=== PATIENT | female | born 1980 | race Caucasian/White ===

== ENCOUNTER → 2019-02-13 09:04 | Outpatient (CLI) | payer OTHER, SELFPAY ==
[2019-02-13 12:13] LABS: Absolute Lymphocyte Count 2.21 X10^3/ul (0.83-4.51); Absolute Neutrophil Count 3.1 X10^3/uL (2.0-7.7); Basophil# 0.04 X10^3/uL; Basophil% 0.6 % (0-1); Eosinophil# 0.29 X10^3/uL; Eosinophils% 4.7 % (0-5); Hematocrit 40.4 % (37-47); Hemoglobin 12.8 g/dl (12.0-15.0); Lymphocyte # 2.21 X10^3/ul (4.0); Lymphocyte % 35.7 % (19-41); Mean Corp Hgb Conc 31.7 g/gl (32-36); Mean Corpuscular Hgb 28.6 pg (27.0-32.0); Mean Corpuscular Volume 90.2 fL (81-99); Monocyte# 0.54 X10^3/uL; Monocyte% 8.7 % (0-10); Neutrophil % 50.1 % (47-70); Platelet Count 379 K/mm3 (150-450); RBC Distribution Width CV 13.3 % (11.6-14.6); RBC Distribution Width SD 43.6 fl (35.1-43.9); Red Blood Count 4.48 M/mm3 (4.2-5.4); White Blood Count 6.2 K/mm3 (4.4-11.0)
[2019-02-13 12:15] LABS: POSITIVE COUNT NO; POSITIVE DIFFERENTIAL NO; POSITIVE MORPHOLOGY NO
[2019-02-13 12:59] LABS: ALB/GLOB Ratio 0.9 RATIO (0.9-2.4); AST(SGOT) 18 U/L (15-37); Alanine Aminotransfer ALT/SGPT 24 U/L (13-56); Albumin, Serum 3.9 g/dL (3.2-5.0); Alkaline Phosphatase 70 U/L (45-117); Anion Gap 7 (5-15); BUN 16 mg/dL (7-18); BUN/Creat Ratio 22.8 RATIO (10-20); Calcium,Total 8.7 mg/dL (8.5-10.1); Chloride 106 mmol/L (98-107); Cholesterol 174 mg/dL (200); EST Glomerular Filtration Rate 99 mL/min (>60); Est Glom Filt Rate - Afr Amer 120 mL/min (>60); Globulin 4.2 g/dL (2.2-4.2); Glucose 78 mg/dL (74-106); High Density Lipoprotein 63 mg/dL; Potassium 4.2 mmol/L (3.5-5.1); Protein, Total 8.1 g/dL (6.4-8.2); Sodium Level 139 mmol/L (136-145); Thyroid Stim Hormone (TSH) 2.18 uIU/mL (0.358-3.74); Triglycerides 58 mg/dL; Very Low Density Lipoprotein 12 mg/dL (5-40)
== END ==
PROVIDERS: Family Provider Family Medicine; PCP Family Medicine; Visit Provider Family Medicine
DX: E66.9 Obesity, unspecified (principal); E78.5 Hyperlipidemia, unspecified
CPT/HCPCS: 36415; 80053; 80061; 84443; 85025

== ENCOUNTER → 2019-11-06 08:53 | Outpatient (CLI) | payer OTHER, SELFPAY ==
[2019-11-06 08:11] VITALS: BMI 36.4
[2019-11-06 10:08] LABS: T4 Free Direct 0.91 ng/dL (0.76-1.46); Thyroid Stim Hormone (TSH) 2.84 uIU/mL (0.358-3.74)
[2019-11-07 15:10] LABS: Thyroid Peroxidase AB 8 IU/mL (0-34)
== END ==
PROVIDERS: PCP Family Medicine; Referring Provider Internal Medicine Endocrinology, Diabetes & Metabolism; Visit Provider Internal Medicine Endocrinology, Diabetes & Metabolism
DX: E04.9 Nontoxic goiter, unspecified (principal)
CPT/HCPCS: 36415; 84439; 84443; 86376

== ENCOUNTER → 2020-04-29 10:28 | Outpatient (CLI) | payer OTHER, SELFPAY ==
[2019-11-06 08:11] VITALS: BMI 36.4
== END ==
PROVIDERS: PCP Family Medicine; Referring Provider Family Medicine; Visit Provider Family Medicine
DX: Z20.828 Contact with and (suspected) exposure to other viral communicable diseases (principal)
CPT/HCPCS: 87635; 94799; U0003

== ENCOUNTER → 2020-09-06 09:10 | Outpatient (CLI) | payer OTHER, SELFPAY ==
[2019-11-06 08:11] VITALS: BMI 36.4
[2020-09-06 12:23] LABS: Absolute Lymphocyte Count 2.09 X10^3/uL (0.83-4.51); Absolute Neutrophil Count 5.9 X10^3/uL (2.0-7.7); Basophil# 0.07 X10^3/uL; Basophil% 0.8 % (0-1); Eosinophil# 0.18 X10^3/uL; Hematocrit 42.9 % (37-47); Hemoglobin 13.2 g/dL (12.0-15.0); Lymphocyte # 2.09 X10^3/ul (4.0); Lymphocyte % 23.2 % (19-41); Mean Corp Hgb Conc 30.8 g/dL (32-36); Mean Corpuscular Hgb 28.4 pg (27.0-32.0); Mean Corpuscular Volume 92.5 fL (81-99); Mean Platelet Vol. 10.9 fl (6.2-12.0); Monocyte# 0.73 X10^3/uL; Monocyte% 8.1 % (0-10); NRBC Flagged by Analyzer 0 % (0-5); Neutrophil # 5.89 X10^3/uL (2.7-7.7); Neutrophil % 65.6 % (47-70); Platelet Count 384 K/mm3 (150-450); RBC Distribution Width CV 13.3 % (11.6-14.6); RBC Distribution Width SD 45.1 fl (35.1-43.9); Red Blood Count 4.64 M/mm3 (4.2-5.4)
[2020-09-06 12:54] LABS: AST(SGOT) 15 U/L (15-37); Alanine Aminotransfer ALT/SGPT 30 U/L (13-56); Alkaline Phosphatase 61 U/L (45-117); Anion Gap 4 (5-15); BUN 18 mg/dL (7-18); Chloride 105 mmol/L (98-107); Cholesterol 216 mg/dL (200); Creatinine, Serum 0.75 mg/dL (0.55-1.02); EST Glomerular Filtration Rate 91 mL/min (>60); Est Glom Filt Rate - Afr Amer 110 mL/min (>60); Globulin 4.2 g/dL (2.2-4.2); Glucose 85 mg/dL (74-106); High Density Lipoprotein 60 mg/dL; Potassium 4.1 mmol/L (3.5-5.1); Protein, Total 8.2 g/dL (6.4-8.2); Sodium Level 137 mmol/L (136-145); Thyroid Stim Hormone (TSH) 2.57 uIU/mL (0.358-3.74); Triglycerides 85 mg/dL; Very Low Density Lipoprotein 17 mg/dL (5-40)
== END ==
PROVIDERS: PCP Family Medicine; Visit Provider Family Medicine
DX: Z00.00 Encounter for general adult medical examination without abnormal findings (principal); L40.50 Arthropathic psoriasis, unspecified; R53.83 Other fatigue
CPT/HCPCS: 36415; 80053; 80061; 84443; 85025

== ENCOUNTER → 2023-04-16 | Outpatient (CLI) | payer OTHER, SELFPAY ==
[2023-04-16 07:42] LABS: Absolute Lymphocyte Count 2.89 X10^3/uL (0.83-4.51); Absolute Neutrophil Count 3.6 X10^3/uL (2.0-7.7); Basophil# 0.06 X10^3/uL; Basophil% 0.8 % (0-1); Eosinophil# 0.18 X10^3/uL; Eosinophils% 2.4 % (0-5); Hematocrit 41.6 % (37-47); Hemoglobin 12.8 g/dL (12.0-15.0); Lymphocyte # 2.89 X10^3/ul (0.83-4.51); Lymphocyte % 39.3 % (19-41); Mean Corp Hgb Conc 30.8 g/dL (32-36); Mean Corpuscular Hgb 28.1 pg (27.0-32.0); Mean Corpuscular Volume 91.2 fL (81-99); Mean Platelet Vol. 10.1 fl (6.2-12.0); Monocyte# 0.65 X10^3/uL; Monocyte% 8.8 % (0-10); NRBC Flagged by Analyzer 0 % (0-5); Neutrophil # 3.56 X10^3/uL (2.7-7.7); Neutrophil % 48.4 % (47-70); Platelet Count 363 K/mm3 (150-450); RBC Distribution Width CV 13.4 % (11.6-14.6); Red Blood Count 4.56 M/mm3 (4.2-5.4); White Blood Count 7.4 K/mm3 (4.4-11.0)
[2023-04-16 08:09] LABS: Vitamin D,25 Hydroxy 47.7 ng/mL
[2023-04-16 08:13] LABS: ALB/GLOB Ratio 0.9 RATIO (0.9-2.4); AST(SGOT) 14 U/L (15-37); Alanine Aminotransfer ALT/SGPT 19 U/L (13-56); Albumin, Serum 3.7 g/dL (3.2-5.0); Alkaline Phosphatase 64 U/L (45-117); Anion Gap 3 (5-15); BUN 13 mg/dL (7-18); BUN/Creat Ratio 17.4 RATIO (10-20); Calcium,Total 8.6 mg/dL (8.5-10.1); Chloride 107 mmol/L (98-107); Cholesterol 213 mg/dL (200); Creatinine, Serum 0.75 mg/dL (0.55-1.02); EST Glomerular Filtration Rate 90 mL/min (>60); Est Glom Filt Rate - Afr Amer 109 mL/min (>60); Globulin 4.1 g/dL (2.2-4.2); Glucose 89 mg/dL (74-106); High Density Lipoprotein 67 mg/dL; Protein, Total 7.8 g/dL (6.4-8.2); Sodium Level 136 mmol/L (136-145); T4 Free Direct 0.89 ng/dL (0.76-1.46); Thyroid Stim Hormone (TSH) 3.57 uIU/mL (0.358-3.74); Triglycerides 136 mg/dL; Very Low Density Lipoprotein 27 mg/dL (5-40)
== END | disposition home or self-care (01) ==
PROVIDERS: PCP Nurse Practitioner Family; Referring Provider Nurse Practitioner Family; Visit Provider Nurse Practitioner Family
DX: Z00.01 Encounter for general adult medical examination with abnormal findings (principal); R53.83 Other fatigue; E55.9 Vitamin D deficiency, unspecified
CPT/HCPCS: 36415; 80053; 80061; 82306; 84439; 84443; 85025

== ENCOUNTER → 2023-05-18 | Outpatient (CLI) | payer OTHER, SELFPAY ==
--- NOTE | 2023-05-18 15:42 | RAD_ITS ---
INDICATION: BILAT FOOT PAIN EXAMINATION/TECHNIQUE: X-RAY - RIGHT XR Foot Min 3 Views 3 VIEWS COMPARISON: No relevant prior comparison study available FINDINGS: SOFT TISSUES: No soft tissue swelling or gas. No radiopaque foreign body. BONES/JOINTS: No acute fracture or subluxation.. Normal alignment. Preservation of the joint space.. No sclerotic or destructive changes observed. RAD/Foot min 3 Views IMPRESSION: 1. No evidence fracture malalignment or focal bony or joint space abnormality involving the RIGHT foot. Electronically Signed: Joshua Velazquez MD at 18:10 EDT ,
--- NOTE | 2023-05-18 15:42 | RAD_ITS ---
INDICATION: BILAT FOOT PAIN EXAMINATION/TECHNIQUE: X-RAY - LEFT XR Foot Min 3 Views 3 VIEWS COMPARISON: No relevant prior comparison study available FINDINGS: SOFT TISSUES: No soft tissue swelling or gas. No radiopaque foreign body. BONES/JOINTS: No acute fracture or subluxation.. Normal alignment. Preservation of the joint space.. No sclerotic or destructive changes observed. RAD/Foot min 3 Views IMPRESSION: 1. No fracture malalignment dislocation or focal bony or joint space abnormality involving the LEFT foot Electronically Signed: Joshua Velazquez MD at 18:11 EDT ,
== END | disposition home or self-care (01) ==
LOC: RAD 15:38
PROVIDERS: PCP Nurse Practitioner Family; Referring Provider Nurse Practitioner Family; Visit Provider Nurse Practitioner Family
DX: M79.671 Pain in right foot (principal); L40.50 Arthropathic psoriasis, unspecified; M79.672 Pain in left foot
CPT/HCPCS: 73630

== ENCOUNTER → 2023-07-24 | Outpatient (CLI) | payer OTHER, SELFPAY ==
[2023-07-24 12:38] LABS: Erythrocyte Sedimentation Rate 17 mm/hr (0-30)
[2023-07-24 12:42] LABS: Absolute Lymphocyte Count 2.24 X10^3/uL (0.83-4.51); Absolute Neutrophil Count 5.2 X10^3/uL (2.0-7.7); Basophil# 0.08 X10^3/uL; Eosinophil# 0.15 X10^3/uL; Eosinophils% 1.8 % (0-5); Hematocrit 41.1 % (37-47); Hemoglobin 13.1 g/dL (12.0-15.0); Lymphocyte # 2.24 X10^3/ul (0.83-4.51); Lymphocyte % 27.1 % (19-41); Mean Corp Hgb Conc 31.9 g/dL (32-36); Mean Corpuscular Hgb 29.1 pg (27.0-32.0); Mean Corpuscular Volume 91.3 fL (81-99); Mean Platelet Vol. 10.8 fl (6.2-12.0); Monocyte% 7.3 % (0-10); NRBC Flagged by Analyzer 0 % (0-5); Neutrophil # 5.16 X10^3/uL (2.7-7.7); Neutrophil % 62.4 % (47-70); Platelet Count 434 K/mm3 (150-450); RBC Distribution Width CV 13.4 % (11.6-14.6); RBC Distribution Width SD 45.1 fl (35.1-43.9); White Blood Count 8.3 K/mm3 (4.4-11.0)
[2023-07-24 13:22] LABS: ALB/GLOB Ratio 0.9 RATIO (0.9-2.4); AST(SGOT) 15 U/L (15-37); Alanine Aminotransfer ALT/SGPT 24 U/L (13-56); Albumin, Serum 3.9 g/dL (3.2-5.0); Alkaline Phosphatase 62 U/L (45-117); Anion Gap 5 (5-15); BUN 18 mg/dL (7-18); BUN/Creat Ratio 27.6 RATIO (10-20); Calcium,Total 8.7 mg/dL (8.5-10.1); Chloride 104 mmol/L (98-107); Creatinine, Serum 0.65 mg/dL (0.55-1.02); EST Glomerular Filtration Rate 105 mL/min (>60); Est Glom Filt Rate - Afr Amer 128 mL/min (>60); Globulin 4.2 g/dL (2.2-4.2); Glucose 83 mg/dL (74-106); Potassium 4.1 mmol/L (3.5-5.1); Protein, Total 8.1 g/dL (6.4-8.2); Rheumatoid Factor < 10.0 IU/mL (<15); Sodium Level 136 mmol/L (136-145)
[2023-07-24 13:32] LABS: Hepatitis B Surface Antibody Non-Reactive; Hepatitis B Surface Antigen Non-Reactive (Nonreactive); Hepatitis C Antibody Non-Reactive (Nonreactive)
[2023-07-25 12:09] LABS: ANTINUCLEAR ANTIBODIES DIRECT Negative (Negative)
[2023-07-25 13:07] LABS: CCP IgG Antibodies 3 units (0-19)
== END | disposition home or self-care (01) ==
LOC: MTLAB 09:29
PROVIDERS: PCP Nurse Practitioner Family; Referring Provider Internal Medicine Rheumatology; Visit Provider Internal Medicine Rheumatology
DX: L40.59 Other psoriatic arthropathy (principal); L40.8 Other psoriasis
CPT/HCPCS: 36415; 80053; 85025; 85652; 86038; 86140; 86200; 86431; 86706; 86803; 87340

== ENCOUNTER → 2023-09-28 | Outpatient (CLI) | payer OTHER, SELFPAY ==
--- OUTSIDE RECORDS SUMMARY | 2023-09-28 07:37 | XMS RPT_ITS | CCD ---
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 Role Phone Ariana Ceballos Unavailable Papo Vanegas Unavailable Carmen Velazquez Unavailable Unavailable Clarita Valerio Unavailable Unavailable Unavailable Unavailable Ariana Ceballos DO Primary Care Provider Ariana Ceballos DO Primary Care Provider ARIANA CEBALLOS Primary Care Unavailab le LATOYA LOPEZ Attending Unavailab EUSEBIA Dejesus Referring Unavailable ARIANA CEBALLOS Primary Care Unavailab EUSEBIA Dejesus Referring Unavailable EUSEBIA VICTORIA Attending Unavailable ARIANA CEBALLOS Primary Care Unavailab le TUCKERARIANA Primary Care Unavailab EUSEBIA Dejesus Referring Unavailable ARIANA CEBALLOS Primary Care Unavailab le FOSTRE LATOYA MACDONALD Referring Unavailab le TUCKERARIANA Primary Care Unavailab le FOSTER LATOYA MACDONALD Referring Unavailab le Tucker Ariana LAYTON Primary Care Provider Medications Completed/Discontinued Medications Medication Drug Class(es) Dates Sig (Normalized) Sig (Original) amoxicillin 875 mg / clavulanate 125 mg oral tablet (1 source) Penicillin-class Antibacterial Start: 11-27-2014 End: 02-01-2015 take 1 tablet by mouth twice daily AUGMENTIN, 875-125MG (Oral Tablet) 1 Tablet bid for 0 days Quantity: 20 {Tablet} Refills: 0 Ordered: 01-Feb-2015 Clarita Valerio LPN Start : 27-Nov-2014 End : 01-Feb-2015 Discontinued apremilast 30 mg oral tablet (2 sources) Start: 08-22-2016 End: 09-21-2016 take 1 tablet by mouth once daily Otezla 30 MG Oral Tablet 1 (one) Tablet daily for 30 days Quantity: 30 {Tablet} Refills: 0 Ordered: 22-Aug-2016 Ariana Ceballos DO Tucker LAYTON Ariana Start : 22-Aug-2016 End : 21-Sep-2016 Inactive Problems Active Problems Problem Classification Problem Date Documented Date Episodic/Chronic Administrative/social admission (1 source) Medical examinations/reports status; Translations: [Well female exam with routine gynecological exam] 08-17-2015 Episodic Anxiety disorders (2 sources) Anxiety; Translations: [Anxiety] Resolved: 08-22-2016 08-22-2016 Chronic Coronary atherosclerosis and other heart disease (6 sources) Coronary atherosclerosis and other heart disease Fever of unknown origin (3 sources) Fever; Translations: [Fever] Resolved: 07-21-2015 07-21-2015 Episodic Immunizations and screening for infectious disease (3 sources) Need for prophylactic vaccination and inoculation against influenza; Translations: [Patient encounter status] Episodic Lymphadenitis (3 sources) Lymphadenopathy; Translations: [Lymphadenopathy] Resolved: 08-22-2016 08-22-2016 Episodic Malaise and fatigue (2 sources) Fatigue; Translations: [FATIGUE] Resolved: 08-22-2016 08-22-2016 Episodic Nutritional deficiencies (2 sources) Vitamin D deficiency; Translations: [Vitamin D deficiency, unspecified] Onset: 05-17-2022 Chronic Other bone disease and musculoskeletal deformities (1 source) Somatic dysfunction of upper limb; Translations: [Arm somatic dysfunction] 05-04-2017 Episodic Other connective tissue disease (1 source) Pain in left hand; Translations: [Left hand pain] 05-04-2017 Episodic Other connective tissue disease (1 source) Tendinitis of elbow or forearm; Translations: [Tendonitis of elbow, left] 05-04-2017 Episodic Other female genital disorders (1 source) Vaginal dryness; Translations: [Other specified noninflammatory disorders of vagina] Episodic Other inflammatory condition of skin (3 sources) Psoriasis; Translations: [Psoriasis] 05-04-2017 Chronic Other inflammatory condition of skin (3 sources) Seborrhea capitis; Translations: [Seborrheic dermatitis of scalp] Resolved: 08-22-2016 08-22-2016 Episodic Other inflammatory condition of skin (3 sources) Seborrheic dermatitis; Translations: [Seborrheic dermatitis] Resolved: 08-22-2016 08-22-2016 Episodic Other lower respiratory disease (2 sources) Cough; Translations: [Cough] Resolved: 08-22-2016 08-22-2016 Episodic Other nutritional; endocrine; and metabolic disorders (6 sources) Body mass index 30+ - obesity; Translations: [Body mass index (BMI) 39.0-39.9, adult] Onset: 05-16-2022 05-04-2017 Chronic Other nutritional; endocrine; and metabolic disorders (1 source) Weight gain; Translations: [Weight Gain] 05-04-2017 Episodic Other nutritional; endocrine; and metabolic disorders (2 sources) Unintentional weight gain; Translations: [Abnormal weight gain] Episodic Other and delivery including normal (1 source) History of past delivery; Translations: [Vaginal Delivery] 05-04-2017 Episodic Past or Other Problems Problem Classification Problem Date Documented Da te Episodic/Chronic Other and unspecified benign neoplasm (4 sources) Fibroadenoma of breast; Translations: [Benign neoplasm of unspecified breast] Onset: 09-09-2015 09-09-2015 Episodic Other ear and sense organ disorders (1 source) Otalgia; Translations: [Ear ache] Resolved: 07-21-2015 07-21-2015 Episodic Other nutritional; endocrine; and metabolic disorders (1 source) Abnormal weight gain; Translations: [Unintended weight gain] Onset: 05-16-2022 Episodic Other skin disorders (1 source) Skin tag; Translations: [Skin tag] Resolved: 07-21-2015 08-18-2015 Episodic Other skin disorders (1 source) Hirsutism; Translations: [Hirsutism] Onset: 05-17-2022 Episodic Unclassified (1 source) BMI 33.0-33.9,adult Unclassified (1 source) Abortions/Miscarria ges; Translations: [Abortions/Miscarri ages] 05-04-2017 Results Test Name Value Interpretation Reference Range Facil ity Vital Signs Date Time Vital Sign Value Performing Clinician Facility 05-16-2022 12:58-0400 Body height 161.3 cm Latoya Macdonald MD Work Phone: [facility] 05-16-2022 12:58-0400 Body weight 102.06 kg Latoya Macdonald MD Work Phone: [facility] 05-16-2022 12:58-0400 Diastolic blood pressure 92 mm[Hg] Latoya Macdonald MD Work Phone: [facility] 05-16-2022 12:58-0400 Heart rate 80 /min Latoya Macdonald MD Work Phone: [facility] 05-16-2022 12:58-0400 Respiratory rate 16 /min Latoya Macdonald MD Work Phone: [facility] 05-16-2022 12:58-0400 SaO2% (BldA) [Mass fraction] 99 % Latoya Macdonald MD Work Phone: [facility] 05-16-2022 12:58-0400 Systolic blood pressure 136 mm[Hg] Latoya Macdonald MD Work Phone: [facility] 04-04-2022 08:28-0400 Body height 162.6 cm Eusebia Plotts FITNESS CONSULTANT.CNM Work Phone: [facility] 04-04-2022 08:28-0400 Body weight 102.97 kg Eusebia Plotts FITNESS CONSULTANT.CNM Work Phone: [facility] 04-04-2022 08:28-0400 Diastolic blood pressure 80 mm[Hg] Eusebia Plotts FITNESS CONSULTANT.CNM Work Phone: [facility] 04-04-2022 08:28-0400 Systolic blood pressure 122 mm[Hg] Eusebia Plotts FITNESS CONSULTANT.CNM Work Phone: [facility] 05-04-2017 08:02-0400 BMI (Body Mass Index) 33.19 kg/m2 Ariana Ceballos [facility] Work Phone: 05-04-2017 08:02-0400 BP Diastolic 80 mm[Hg] Airana Ceballos [facility] Work Phone: Encounters Encounter Date Encounter Type Care Provider Facility Start: 09-15-2022 End: 09-15-2022 ambulatory ARIANA CEBALLOS Facility:[facility] Start: 09-15-2022 End: 09-15-2022 Subsequent hospital visit by physician Screen Mammo [facility] Mammogram Procedures Date Procedure Procedure Detail Performing Clinician Start: 09-15-2022 ROBINA SCREENING W LALITHA Eusebia Victoria FITNESS CONSULTANT.CNM Work Phone: Start: 07-29-2021 Mammography Eusebia Marestiburcio FITNESS CONSULTANT.CNM Work Phone: Start: 09-01-2015 End: 09-01-2015 Breast Limited Unilateral Comments: See Note; NOTES: [facility] Imaging Services [address] [place] [address] Verdana 4d Breast Limited Unilateral MR#: [id number] Acct: [id number] Name: KAREN BRENNAN Rep #: [id number] : 1980 F 35 From: Benjamin Vega MD PCP: Ariana Ceballos DO Status: REG CLI Study: Breast Limited Unilateral Date of Exam: 09/01/15 Exam# [id number] Ordering Dr: Ariana Ceballos DO STUDY: ULTRASOUND BREAST - RIGHT REASON FOR EXAM: Female, 35 years old. Abnormal screening mammogram. TECHNIQUE: Axial and longitudinal images of the RIGHT breast were performed with a high resolution ultrasound transducer. COMPARISON: Comparison is made with prior mammogram dated August 25, 2015. FINDINGS: RIGHT Breast: There is a 1.9 cm x 1.8 cm x 1.0 cm well-defined hypoechoic solid nodule at the 1:00 position the breast at 4 cm from the nipple. This corresponds to the mammographic findings. The patient presents a history of prior biopsy of this abnormality. Clinical correlation is recommended. IMPRESSION: 1.9 cm x 1.8 cm x 1.0 cm well-defined hypoechoic solid nodule at the 1:00 position of the breast is 4 cm from the nipple. This corresponds to the mammographic findings. The patient reports prior biopsy of this nodule. Clinical correlation is recommended. ASSESSMENT CATEGORY: BIRADS Category 2: Benign. A letter regarding these results will be sent to the patient by the facility within 30 days. Electronically Signed: Benjamin Vega MD at 9:49 EST Tel [phone], Service support [phone], CC: Ariana Ceballos DO Flower Grader: Signed Ariana Ceballos Work Phone: Start: 08-25-2015 End: 08-25-2015 Bilat Scrn Digital AND CAD Comments: See Note; NOTES: [facility] Imaging Services [address] [place] [address] Verdana 4d Bilat Scrn Digital AND CAD MR#: [id number] Acct: [id number] Name: KAREN BRENNAN Rep #: [id number] : 1980 F 34 From: Benjamin Vega MD PCP: Ariana Ceballos DO Status: REG CLI Study: Bilat Scrn Digital AND CAD Date of Exam: 08/25/15 Exam# [id number] Ordering Dr: Ariana Ceballos DO MAMMOGRAPHY - BILATERAL SCREENING REASON FOR EXAM: Female, 34 years old. Routine annual screening examination. PERTINENT HISTORY: Grandmother with breast cancer. Prior right breast aspiration. TECHNIQUE: Digital examination. Mediolateral oblique (MLO) and craniocaudad (CC) views of both breasts were obtained. CAD: CAD was performed on this study. COMPARISON: None. Baseline examination. FINDINGS: Breast Composition: There are scattered areas of fibroglandular density. There is a 2.1 cm x 2.2 cm well-defined nodule in the upper medial aspect of the right breast. Correlation with ultrasound is recommended. No other significant abnormalities are identified. IMPRESSION: 2.1 cm x 2.2 cm well-defined nodule in the upper medial aspect of the right breast as described. Correlation with ultrasound is recommended. Recall Side: Right Breast ASSESSMENT CATEGORY: BIRADS Category 0: Incomplete. Need additional imaging evaluation. A letter regarding these results will be sent to the patient by the facility within 30 days. Approximately 10% of breast cancers are not detected by mammography. A normal mammogram should not delay biopsy of a clinically suspicious abnormality. [id number] Electronically Signed: Benjamin Vega MD at 9:13 EST Tel [phone], Service support [phone], CC: Ariana Ceballos DO Flower Grader: Signed Ariana Ceballos Work Phone: Start: 03-20-2013 End: 03-20-2013 No Known Past Surgical History [facility] Plan of Treatment Date Care Activity Detail Author Start: 04-04-2027 HPV TESTING HPV TESTING [facility] Start: 04-04-2027 PAP TESTING PAP TESTING [facility] Start: 09-15-2023 Mammography Mammogram Screening [facility] Start: 06-01-2023 Covid-19 Vaccine ( season) Covid-19 Vaccine ( season) [facility] Start: 06-01-2023 Influenza [facility] Start: 10-01-2022 Depression Assessment Depression Assessment [facility] Start: 07-29-2022 Mammography MAMMOGRAM [facility] Start: 06-01-2022 Influenza vaccination INFLUENZA (#1) [facility] Start: 05-16-2022 End: 05-16-2023 17-Hydroxyprogesterone [Mass/volume] in Serum or Plasma HYDROXYPROGESTERO-17 Lab Routine Unintended weight gain Elevated testosterone level in female Hirsutism Expected: 05/16/2022, Expires: 05/16/2023 [facility] Work Phone: Immunizations Immunization Date Immunization Notes Care Provider Jer [email or web address] 08-06-2020 influenza, injectabl e, quadrivalent, contains preservative Eusebia Victoria FITNESS CONSULTANT.CNM Work Phone: [facility] 08-06-2020 influenza virus vacc ine, unspecified formulation Screen Wstr [facility] Payers Date Payer Category Payer Private Health Insurance [facility] CHOICE PLUS [id number] 2019-Present [phone] [address] [place] [id number] [id number] 2019 Private Health Insurance [facility] CHOICE PLUS [id number] 2019-Present [phone] [address] [place] [id number] HMO [id number] 2019 Unknown [id number] Unknown [facility] Social History Date Type Detail Facility Alcohol Use: Never smoker [facility] Work Phone: Start: 04-04-2022 End: 05-16-2022 Caffeine Use [facility] Work Phone: Clinical Notes 04-04-2022 to 09-15-2022 Tracie Estrada, RT(R) - 09/15/2022 7:50 AM ESTTelephone Encounter - Keena Newberry RN - 06/06/2022 10:55 AM EDTTelephone Encounter - Brenda Lyons LPN - 06/02/2022 9:50 AM EDTPatient Instructions Note Date & Type Note Facility 09-15-2022 Note HNO ID: [id number] Author: RT Lay(R) Service: ? Author Type: Technologist Type: Progress Notes Filed: 09/15/2022 7:37 AM Note Text: Radiology Service Progress Note PATIENT NAME: Karen Brennan DATE OF SERVICE: September 15, 2022 TIME: 7:36 AM PATIENT IDENTITY VERIFICATION COMPLETED USING TWO (2) IDENTIFIERS: Name and Date of confirmed by patient verbally. FALL SCREENING: Has the patient had 2 falls in the last year or 1 fall with injury or currently using an Ambulatory Assistive Device (Walker, Cane, Wheelchair, Crutches, etc.)? No PATIENT GENDER DATA: Female. status: : No status: NO. PATIENT RELEVANT IMPLANT DATA REVIEWED: Not Applicable RADIOLOGY DEPARTMENT: Mammography PERIPHERAL IV DATA: Not applicable SIGNED BY: RT Lay(R) September 15, 2022 7:36 AM [facility] 09-15-2022 History of Presen t illness Narrative Radiology Service Progress Note PATIENT NAME: Kaern Brennan DATE OF SERVICE: September 15, 2022 TIME: 7:36 AM PATIENT IDENTITY VERIFICATION COMPLETED USING TWO (2) IDENTIFIERS: Name and Date of confirmed by patient verbally. FALL SCREENING: Has the patient had 2 falls in the last year or 1 fall with injury or currently using an Ambulatory Assistive Device (Walker, Cane, Wheelchair, Crutches, etc.)? No PATIENT GENDER DATA: Female. status: : No status: NO. PATIENT RELEVANT IMPLANT DATA REVIEWED: Not Applicable RADIOLOGY DEPARTMENT: Mammography PERIPHERAL IV DATA: Not applicable SIGNED BY: RT Lay(R) September 15, 2022 7:36 AM documented in this encounter [facility] 06-06-2022 Miscellaneous Notes [facility] message was reviewed on 06/02/2022. Closed. Call placed and my chart message sent with information below Sarahr Indu, The testosterone level was normal. The cortisol in the saliva test was also normal. The remaining of the labs were normal with the exception of elevated cholesterol (for which I recommend a diet low in saturated fat) and mild decrease in vitamin D (recommend over the counter vitamin D 1,000 units every day) Best, Dr. Foster documented in this encounter [facility] 05-16-2022 Note HNO ID: [id number] Author: Latoya Macdonald MD Service: ? Author Type: Physician Type: Progress Notes Filed: 05/16/2022 1:47 PM Note Text: ENDOCRINOLOGY INITIAL CONSULT REASON FOR CONSULT: Evaluation of hyperandrogenism REQUESTING PHYSICIAN: Ariana Ceballos DO History of Present Illness Karen Brennan is a 41 year old female presenting as a new patient to me for evaluation of ovarian hyperandrogenism. Reports feeling bad over the last two years. Has been progressively gaining weight despite her efforts with diet and physical activity and also with extreme fatigue. She took a blood and saliva test from home showing: normal thyroid levels, normal low DHEA-S and elevated testosterone in the saliva 525 pg/mL (10-61) and saliva cortisol at different times of the day with MN levels 0.6 ng/mL (0.6-4.1). Reports acne in her chin and has hair in upper lip and chin mostly over the last 2 years. She shaves her hair in arms. Regular menstrual periods are regular every 25-30 days. History of 2 live pregnancies (ages 11 and 14 years old) and 1 miscarriage. Blood pressure is trending up. Weight chart as follows: takes testosterone via gel and she wonders if it is being transmitted to her. Past History, Medications, Allergies PAST MEDICAL HISTORY: PAST MEDICAL HISTORY Diagnosis Date Psoriasis of scalp PAST SURGICAL HISTORY: PAST SURGICAL HISTORY Procedure Laterality Date DENTAL IMPLANT 08/2019 EXTRACTION, ERUPTED TOOTH OR EXPOSED ROOT (ELEVATION AND/OR FORCEPS REMOVAL) PAST SURGICAL HISTORY OF Right 2004 breast biopsy FAMILY HISTORY: FAMILY HISTORY Problem Relation Age of Onset Heart Maternal Grandfather Prostate Cancer Father Breast Cancer Maternal Grandmother Breast Cancer Paternal Grandmother other (lupus) Mother SOCIAL HISTORY: Social History Tobacco Use Smoking status: Never Smokeless tobacco: Never Vaping Use Vaping Use: Never used Substance Use Topics Alcohol use: Yes Comment: occasional Drug use: No MEDICATIONS: Current Outpatient Medications on File Prior to Visit Medication Sig Clobetasol Propionate (TEMOVATE) 0.05 % external solution PRN No current facility-administered medications on file prior to visit. ALLERGIES: ALLERGIES No Known Allergies Review of Systems CONSTITUTIONAL: weight gain EYES: Negative for blurry vision, retinopathy, or hemianopia. ENMT: Negative for thrush or odynophagia. CARDIOVASCULAR: Negative for CP, ORANTES, PND, orthopnea, HTM, dizziness or palpitations. RESPIRATORY: Negative for cough, SOB, breathlessness or hemoptysis. GASTROINTESTINAL: Negative for N/V/D, gastroparesis, polydipsia, abdominal pain, liver failure or constipation. GENITOURINARY: Negative for dys/urg/freq, polyuria, nephropathy, impotence, delayed or premature puberty, primary or secondary infertility or oligo/amenorrhea. MUSCULOSKELETAL: Negative for pain, injury, focal weakness, ambulation, fractures, deformity or myopathy. INTEGUMENTARY: acne and hirsutism NEUROLOGICAL: Negative for paresthesias, headache, h/o stroke/TIA, lethargy or exhaustion. PSYCHIATRIC: Negative for depression or anxiety. ENDOCRINE: Negative for diabetes, thyroid or Cleveland's. HEMATOLOGIC/LYMPHATIC: Negative for bruising or bleeding. ALLERGIC/IMMUNOLOGIC: Negative for splenectomy. Physical examination BP 136/92 Pulse 80 Resp 16 Ht 161.3 cm (5' 3.5 ) Wt 102.1 kg (225 lb) LMP 03/21/2022 SpO2 99% BMI 39.23 kg/m? APPEARANCE:Well appearing, alert, in no acute distress, well-hydrated, well nourished. Acanthosis Nigricans:None EYES:VANESSA NECK:neck supple, no adenopathy; thyroid symmetric, normal size, no bruits. THYROID:normal to inspection, palpation and auscultation THYROID SIZE:normal HEART:RRR LUNGS:clear to auscultation ABD:bowel sounds normoactive, no bruits, soft, non-tender, non-distended, without organomegaly or palpable masses, no tenderness to palpation EXTREMITIES:Normal, No deformities, No skin discoloration, No edema, and Normal pulses bilaterally. NEURO:Awake, alert and oriented x 3, No involuntary motions., and Reflexes symmetrical SKIN:no purple stretch brothers, +acne in chins Previous Data Component Latest Ref Rng AND Units 04/05/2022 Cholesterol, Total <200 mg/dL 209 (H) Triglyceride <150 mg/dL 174 (H) HDL Cholesterol >39 mg/dL 53 Non HDL Cholesterol <130 mg/dL 156 (H) Fasting Time hrs 12 VLDL Cholesterol <30 mg/dL 35 (H) TC:HDL Ratio <5.10 3.94 LDL Cholesterol <100 mg/dL 121 (H) LDL:HDL Ratio <2.54 2.28 Hemoglobin A1C 4.3 - 5.6 % 5.2 Estimated Average Glucose mg/dL 103 TSH 0.270 - 4.200 mIU/L 2.820 Impression/Recommendations ASSESSMENT/PLAN: 1. Elevated testosterone level in female - ICD9: 259.9, ICD10: R79.89 (primary diagnosis) 2. Unintended weight gain - ICD9: 783.1, ICD10: R63.5 3. Hirsutism - ICD9: 704.1, ICD10: L68.0 She had blood work showing s (more content not included)... [facility] 05-16-2022 Instructions Latoya Macdonald MD - 05/16/2022 1:24 PM EDT Saliva cortisol test at 11 PM Blood work in the morning fasting documented in this encounter [facility] 05-16-2022 History of Presen t illness Narrative Images from the original note were not included. ENDOCRINOLOGY INITIAL CONSULT REASON FOR CONSULT: Evaluation of hyperandrogenism REQUESTING PHYSICIAN: Ariana Ceballos, History of Present Illness Karen Brennan is a 41 year old female presenting as a new patient to me for evaluation of ovarian hyperandrogenism. Reports feeling bad over the last two years. Has been progressively gaining weight despite her efforts with diet and physical activity and also with extreme fatigue. She took a blood and saliva test from home showing: normal thyroid levels, normal low DHEA-S and elevated testosterone in the saliva 525 pg/mL (10-61) and saliva cortisol at different times of the day with MN levels 0.6 ng/mL (0.6-4.1). Reports acne in her chin and has hair in upper lip and chin mostly over the last 2 years. She shaves her hair in arms. Regular menstrual periods are regular every 25-30 days. History of 2 live pregnancies (ages 11 and 14 years old) and 1 miscarriage. Blood pressure is trending up. Weight chart as follows: takes testosterone via gel and she wonders if it is being transmitted to her. Past History, Medications, Allergies PAST MEDICAL HISTORY: PAST MEDICAL HISTORY Diagnosis Date Psoriasis of scalp PAST SURGICAL HISTORY: PAST SURGICAL HISTORY Procedure Laterality Date DENTAL IMPLANT 08/2019 EXTRACTION, ERUPTED TOOTH OR EXPOSED ROOT (ELEVATION AND/OR FORCEPS REMOVAL) PAST SURGICAL HISTORY OF Right 2004 breast biopsy FAMILY HISTORY: FAMILY HISTORY Problem Relation Age of Onset Heart Maternal Grandfather Prostate Cancer Father Breast Cancer Maternal Grandmother Breast Cancer Paternal Grandmother other (lupus) Mother SOCIAL HISTORY: Social History Tobacco Use Smoking status: Never Smokeless tobacco: Never Vaping Use Vaping Use: Never used Substance Use Topics Alcohol use: Yes Comment: occasional Drug use: No MEDICATIONS: Current Outpatient Medications on File Prior to Visit Medication Sig Clobetasol Propionate (TEMOVATE) 0.05 % external solution PRN No current facility-administered medications on file prior to visit. ALLERGIES: ALLERGIES No Known Allergies Review of Systems CONSTITUTIONAL: weight gain EYES: Negative for blurry vision, retinopathy, or hemianopia. ENMT: Negative for thrush or odynophagia. CARDIOVASCULAR: Negative for CP, ORANTES, PND, orthopnea, HTM, dizziness or palpitations. RESPIRATORY: Negative for cough, SOB, breathlessness or hemoptysis. GASTROINTESTINAL: Negative for N/V/D, gastroparesis, polydipsia, abdominal pain, liver failure or constipation. GENITOURINARY: Negative for dys/urg/freq, polyuria, nephropathy, impotence, delayed or premature puberty, primary or secondary infertility or oligo/amenorrhea. MUSCULOSKELETAL: Negative for pain, injury, focal weakness, ambulation, fractures, deformity or myopathy. INTEGUMENTARY: acne and hirsutism NEUROLOGICAL: Negative for paresthesias, headache, h/o stroke/TIA, lethargy or exhaustion. PSYCHIATRIC: Negative for depression or anxiety. ENDOCRINE: Negative for diabetes, thyroid or Prieto's. HEMATOLOGIC/LYMPHATIC: Negative for bruising or bleeding. ALLERGIC/IMMUNOLOGIC: Negative for splenectomy. Physical examination BP 136/92 Pulse 80 Resp 16 Ht 161.3 cm (5' 3.5 ) Wt 102.1 kg (225 lb) LMP 03/21/2022 SpO2 99% BMI 39.23 kg/m APPEARANCE:Well appearing, alert, in no acute distress, well-hydrated, well nourished. Acanthosis Nigricans:None EYES:VANESSA NECK:neck supple, no adenopathy; thyroid symmetric, normal size, no bruits. THYROID:normal to inspection, palpation and auscultation THYROID SIZE:normal HEART:RRR LUNGS:clear to auscultation ABD:bowel sounds normoactive, no bruits, soft, non-tender, non-distended, without organomegaly or palpable masses, no tenderness to palpation EXTREMITIES:Normal, No deformities, No skin discoloration, No edema, and Normal pulses bilaterally. NEURO:Awake, alert and oriented x 3, No involuntary motions., and Reflexes symmetrical SKIN:no purple stretch brothers, +acne in chins Previous Data Component Latest Ref Rng & Units 04/05/2022 Cholesterol, Total <200 mg/dL 209 (H) Triglyceride <150 mg/dL 174 (H) HDL Cholesterol >39 mg/dL 53 Non HDL Cholesterol <130 mg/dL 156 (H) Fasting Time hrs 12 VLDL Cholesterol <30 mg/dL 35 (H) TC:HDL Ratio <5.10 3.94 LDL Cholesterol <100 mg/dL 121 (H) LDL:HDL Ratio <2.54 2.28 Hemoglobin A1C 4.3 - 5.6 % 5.2 Estimated Average Glucose mg/dL 103 TSH 0.270 - 4.200 mIU/L 2.820 Impression/Recommendations ASSESSMENT/PLAN: 1. Elevated testosterone level in female - ICD9: 259.9, ICD10: R79.89 (primary diagnosis) 2. Unintended weight gain - ICD9: 783.1, ICD10: R63.5 3. Hirsutism - ICD9: 704.1, ICD10: L68.0 She had blood work showing significant elevation of testosterone level. This does not correlate with her s/s. Her takes testosterone gel and transmission is a possibility. Also, unsure of reliability of that lab. We will repeat blood work fasting and obtain 1-mg LNSC - COMP METABOLIC PANEL - LIPID PANEL BASIC - HGB A1C - TSH BLD - PROLACTIN BLD - HYDROXYPROGESTERO-17 - ACTH BLD - DHEA-S BLD - CORTISOL BLD - BIOAVAIL TESTO/SHBG, FEM & CHILD - INSULIN LIK GR FAC I - CORTISOL SALIVA 4. Vitamin D deficiency - ICD9: 268.9, ICD10: E55.9 Obtain levels - VITAMIN D 25 HYDROXY Latoya Macdonald MD documented in this encounter [facility] 04-04-2022 Note HNO ID: [id number] Author: Eusebia Victoria APRN.CNM Service: ? Author Type: [employer] Roving Winder Type: Progress Notes Filed: 04/04/2022 9:18 AM Note Text: Karen is a 41 year old who presents for an annual gynecologic exam without complaints. She reports struggle with weight gain and inability to loose weight. Has tried diet modifications and exercise without success and feeling frustrated. and her completed at home blood tests and her testosterone level returned and is high- 525. No concern with hirsutism and has regular monthly cycles. Menses: cycles every 25-35 days and 4-5 days of flow. Contraception: none- vasectomy HPV vaccine: No Last Pap: 03/29/2017 normal HPV: 03/23/2017 negative History of abnormal pap: No Last mammogram: 2020normal Sexually active: Yes Time with current partner: 20 Pain with intercourse: No Postcoital bleeding: No Hot flashes: No Night sweats: No Vaginal dryness: Yes Insomnia: yes Exercise: beach body programs- 4 days week Diet: Regular- discussed intermittent fasting and low carb options Seatbelt use: Yes OB History T2 L2 SAB1 IAB0 Ectopic0 Multiple0 Live Births2 Project Developer History LMP: 03/21/2022, Having periods Age at Menarche: Age at First : Age at Menopause: Project Developer History Comments: Sexual Activity: Yes; Male Contraception: Vasectomy PAST MEDICAL HISTORY Diagnosis Date - Psoriasis of scalp PAST SURGICAL HISTORY Procedure Laterality Date - DENTAL IMPLANT 08/2019 - EXTRACTION, ERUPTED TOOTH OR EXPOSED ROOT (ELEVATION AND/OR FORCEPS REMOVAL) - PAST SURGICAL HISTORY OF Right 2004 breast biopsy FAMILY HISTORY Problem Relation Age of Onset - Heart Maternal Grandfather - Prostate Cancer Father - Breast Cancer Maternal Grandmother - Breast Cancer Paternal Grandmother - other (lupus) Mother SOCIAL HISTORY Social History Tobacco Use - Smoking status: Never Smoker - Smokeless tobacco: Never Used Vaping Use - Vaping Use: Never used Substance Use Topics - Alcohol use: Yes Comment: occasional - Drug use: No REVIEW OF SYSTEMS Abdomen: No abdominal pain, nausea, vomiting, diarrhea, or constipation. No bloating, early satiety, indigestion, or increased flatulence. Bladder: No dysuria, gross hematuria, urinary frequency, urinary urgency, or incontinence. Breast: No breast lumps, nipple d/c, overlying skin changes, redness or skin retraction. Allergies and current medication updated:Yes EXAM: BP 122/80 Ht 5' 4 (1.63m) Wt 227 lb (103.0kg) LMP 03/21/2022 BMI 38.95 kg/(m2). GENERAL: pleasant, female in no apparent distress HEENT: Normocephalic, atraumatic, mucus membranes moist and no lesions NECK: Supple and full range of motion DERMATOLOGY: Normal, without lesions, non-icteric and non-hirsute BREAST: soft, non-tender, symmetric, no dominant mass, normal nipple-areolar complex, no lymphadenopathy and no nipple discharge CHEST: Normal inspiratory effort ABDOMEN: soft, non-tender and no masses PELVIC: external genitalia normal, normal Bartholin's glands, urethra, Tenkiller's glands, no vulvar lesions, no cervical lesions, good vaginal support, physiologic discharge present, normal appearing perineal body and perianal region BIMANUAL: uterus normal size, shape and consistency, no adnexal masses, non-tender and no cervical motion tenderness RECTOVAGINAL: deferred. NEURO: alert and oriented x3,exam grossly non-focal EXTREMITIES: normal ASSESSMENT/PLAN: 1. Unintended weight gain - ICD9: 783.1, ICD10: R63.5 (primary diagnosis) - TSH BLD - HGB A1C - CBC + DIFF - CONSULT TO ENDOCRINOLOGY- would like a full work up - LIPID PANEL BASIC 2. Encounter for gynecological examination (general) (routine) without abnormal findings - ICD9: V72.31, ICD10: Z01.419 3. Screening for cervical cancer - ICD9: V76.2, ICD10: Z12.4 - PAP FLUID CERVICAL SCREENING 4. Encounter for screening for human papillomavirus (HPV) - ICD9: V73.81, ICD10: Z11.51 - PAP FLUID CERVICAL SCREENING 5. Encounter for screening mammogram for breast cancer - ICD9: V76.12, ICD10: Z12.31 - ROBINA SCREENING W LALITHA- up to date this year- order placed for next year 6. Elevated testosterone level in female - ICD9: 259.9, ICD10: R79.89 Weight increasing - CONSULT TO ENDOCRINOLOGY 7. Vaginal dryness - Handout provided on vaginal lubricants/moisturizers Will notify patient of results and any changes to plan of care RTO- 1 year or sooner Eusebia Victoria APRN.CNM [facility] 04-04-2022 Instructions Eusebia Victoria APRN.CNM - 04/04/2022 8:44 AM EDT Non-Hormonal Vaginal Lubricants & Vaginal Moisturizers Symptoms of vaginal dryness can be managed by the regular use of vaginal moisturizing agents with supplemental use of vaginal lubricants for sexual intercourse. . Use of vaginal moisturizers and lubricants alone is effective treatment for vaginal dryness or dyspareunia (pain with intercourse) in some patients. Vaginal lubrications- Vaginal lubricants are designed to reduce friction and discomfort from dryness during sexual intercourse. The lubricant is applied inside the vagina and/or on the partner's penis or fingers just before sex. Coconut, [place], Avocado or Peanut oil- natural oils are not recommended for use with latex condoms or diaphragms as they can damage the latex Astroglide- has both water and silicone based KY Jelly- water based Just like me Pure Romance Almost Naked Good Clean Love Bio Nude ultra-sensitive Pjur- silicone ID Millennium- silicone Vaginal Moisturizers- Vaginal moisturizers are intended for use routinely, typically two or three days per week, not just during sexual activity. These products are typically bioadhesives. Many moisturizer products are available in pharmacies and online. Restore- Kivra Replens Chas Feminease Moist Again K-Y Liquid beads Products to assist with maintaining vaginal ph IsoFresh [email or web address] Re[employer]resh documented in this encounter [facility] 04-04-2022 History of Presen t illness Narrative Karen is a 41 year old who presents for an annual gynecologic exam without complaints. She reports struggle with weight gain and inability to loose weight. Has tried diet modifications and exercise without success and feeling frustrated. and her completed at home blood tests and her testosterone level returned and is high- 525. No concern with hirsutism and has regular monthly cycles. Menses: cycles every 25-35 days and 4-5 days of flow. Contraception: none- vasectomy HPV vaccine: No Last Pap: 03/29/2017 normal HPV: 03/23/2017 negative History of abnormal pap: No Last mammogram: 2020normal Sexually active: Yes Time with current partner: 20 Pain with intercourse: No Postcoital bleeding: No Hot flashes: No Night sweats: No Vaginal dryness: Yes Insomnia: yes Exercise: [employer] programs- 4 days week Diet: Regular- discussed intermittent fasting and low carb options Seatbelt use: Yes OB History T2 L2 SAB1 IAB0 Ectopic0 Multiple0 Live Births2 Project Developer History LMP: 03/21/2022, Having periods Age at Menarche: Age at First : Age at Menopause: Project Developer History Comments: Sexual Activity: Yes; Male Contraception: Vasectomy PAST MEDICAL HISTORY Diagnosis Date Psoriasis of scalp PAST SURGICAL HISTORY Procedure Laterality Date DENTAL IMPLANT 08/2019 EXTRACTION, ERUPTED TOOTH OR EXPOSED ROOT (ELEVATION AND/OR FORCEPS REMOVAL) PAST SURGICAL HISTORY OF Right 2004 breast biopsy FAMILY HISTORY Problem Relation Age of Onset Heart Maternal Grandfather Prostate Cancer Father Breast Cancer Maternal Grandmother Breast Cancer Paternal Grandmother other (lupus) Mother SOCIAL HISTORY Social History Tobacco Use Smoking status: Never Smoker Smokeless tobacco: Never Used Vaping Use Vaping Use: Never used Substance Use Topics Alcohol use: Yes Comment: occasional Drug use: No REVIEW OF SYSTEMS Abdomen: No abdominal pain, nausea, vomiting, diarrhea, or constipation. No bloating, early satiety, indigestion, or increased flatulence. Bladder: No dysuria, gross hematuria, urinary frequency, urinary urgency, or incontinence. Breast: No breast lumps, nipple d/c, overlying skin changes, redness or skin retraction. Allergies and current medication updated:Yes EXAM: BP 122/80 Ht 5' 4 (1.63m) Wt 227 lb (103.0kg) LMP 03/21/2022 BMI 38.95 kg/(m^2). GENERAL: pleasant, female in no apparent distress HEENT: Normocephalic, atraumatic, mucus membranes moist and no lesions NECK: Supple and full range of motion DERMATOLOGY: Normal, without lesions, non-icteric and non-hirsute BREAST: soft, non-tender, symmetric, no dominant mass, normal nipple-areolar complex, no lymphadenopathy and no nipple discharge CHEST: Normal inspiratory effort ABDOMEN: soft, non-tender and no masses PELVIC: external genitalia normal, normal Bartholin's glands, urethra, Tenkiller's glands, no vulvar lesions, no cervical lesions, good vaginal support, physiologic discharge present, normal appearing perineal body and perianal region BIMANUAL: uterus normal size, shape and consistency, no adnexal masses, non-tender and no cervical motion tenderness RECTOVAGINAL: deferred. NEURO: alert and oriented x3,exam grossly non-focal EXTREMITIES: normal ASSESSMENT/PLAN: 1. Unintended weight gain - ICD9: 783.1, ICD10: R63.5 (primary diagnosis) - TSH BLD - HGB A1C - CBC + DIFF - CONSULT TO ENDOCRINOLOGY- would like a full work up - LIPID PANEL BASIC 2. Encounter for gynecological examination (general) (routine) without abnormal findings - ICD9: V72.31, ICD10: Z01.419 3. Screening for cervical cancer - ICD9: V76.2, ICD10: Z12.4 - PAP FLUID CERVICAL SCREENING 4. Encounter for screening for human papillomavirus (HPV) - ICD9: V73.81, ICD10: Z11.51 - PAP FLUID CERVICAL SCREENING 5. Encounter for screening mammogram for breast cancer - ICD9: V76.12, ICD10: Z12.31 - ROBINA SCREENING W LALITHA- up to date this year- order placed for next year 6. Elevated testosterone level in female - ICD9: 259.9, ICD10: R79.89 Weight increasing - CONSULT TO ENDOCRINOLOGY 7. Vaginal dryness - Handout provided on vaginal lubricants/moisturizers Will notify patient of results and any changes to plan of care RTO- 1 year or sooner Eusebia Victoria APRN.CNM documented in this encounter [facility] Diagnosis Elevated testosterone level in female- Primary Unspecified endocrine disorder Unintended weight gain Abnormal weight gain Hirsutism Vitamin D deficiency Unspecified vitamin D deficiency BMI 39.0-39.9,adult Body Mass Index 39.0-39.9, adult [facility] Diagnosis Encounter for screening mammogram for breast cancer documented in this encounter [facility] for referral (narrative)* Diagnostic Procedure Only (Routine) - Closed Specialty Diagnoses / Procedures Referred By Mary Alice sun Referred To Contact [facility] Diagnoses Encounter for screening mammogram for breast cancer Procedures ROBINA SCREENING W LALITHA SCREENING DIGITAL BREAST TOMOSYNTHESIS BI SCREENING MAMMOGRAPHY BI 2-VIEW BREAST INC Eusebia Balderrama APRN.CNM [address] [place] [address] [facility] [address] [place] [address] Referral ID Status Reason Start Date Expiration Date V isits Requested Visits Authorized [id number] Closed Auto-Generate d Referral 04/04/2022 05/04/2023 [address] [facility] for visit Narrative* Diagnostic Procedure Only (Routine) - Closed Specialty Diagnoses / Procedures Referred By Mary Alice sun Referred To Contact [facility] Diagnoses Encounter for screening mammogram for breast cancer Procedures ROBINA SCREENING W LALITHA SCREENING DIGITAL BREAST TOMOSYNTHESIS BI SCREENING MAMMOGRAPHY BI 2-VIEW BREAST INC Eusebia Balderrama APRN.CNM [address] [place] [address] [facility] [address] [place] [address] Referral ID Status Reason Start Date Expiration Date V isits Requested Visits Authorized [id number] Closed Auto-Generate d Referral 04/04/2022 05/04/2023 1 1 [facility] Family History Unknown Family Member Name Dates Details Breast Cancer Comments:Maternal Grandmothe r. Paternal Grandmother. Status:Active Heart Disease Comments:Maternal Grandfathe r. Status:Active Hypertension Comments:Father. Status:Active Lupus Comments:Mother. Status:Active Polymyalgia Rheumatica Comments:Maternal Grandmothe r. Maternal great grandpa Status:Active Thyroid problems Comments:Maternal Grandmothe r. Maternal Uncle. Status:Active Instructions Name Dates Details BMI 33.0-33.9,adult : How to access health information online Indication:BMI 33.0-33.9,adult BMI 33.0-33.9,adult : How to access health information online - Detail Indication:BMI 33.0-33.9,adult BMI 33.0-33.9,adult : Patien t Instructions Indication:BMI 33.0-33.9,adult Rash of face : How to access health information online Indication:Rash of face Rash of face : How to access health information online - Detail Indication:Rash of face Rash of face : Patient Instr uctions Indication:Rash of face BMI 34.0-34.9,adult : How to access health information online Indication:BMI 34.0-34.9,adult BMI 34.0-34.9,adult : How to access health information online - Detail Indication:BMI 34.0-34.9,adult Strep pharyngitis : Patient Instructions Indication:Strep pharyngitis Seborrhea capitis : Patient Instructions Indication:Seborrhea capitis Weight Gain : Patient Instru ctions Indication:Weight Gain Anxiety : Patient Instructio ns Indication:Anxiety Reason for Referral Specialty Diagnoses / Procedures Referred By Mary Alice sun Referred To Contact Endocrinology Diagnoses Unintended weight gain Elevated testosterone level in female Procedures CONSULT TO ENDOCRINOLOGY OFFICE/OUTPATIENT [facility] [place] HIGH MDM 60-74 MINUTES Eusebia Victoria APRN.CNM [address] [place] [address] Referral ID Status Reason Start Date Expiration Date Visits Requested Visits Authorized [id number] Pending Review PCP Requested Referral 04/04/2022 04/04/2023 1 1 Specialty Diagnoses / Procedures Referred By Mary Alice sun Referred To Contact [facility] Diagnoses Encounter for screening mammogram for breast cancer Procedures ROBINA SCREENING W LALITHA SCREENING DIGITAL BREAST TOMOSYNTHESIS BI SCREENING MAMMOGRAPHY BI 2-VIEW BREAST INC CAD Eusebia Victoria APRN.CNM [address] [place] [address] [facility] [address] [place] [address] Referral ID Status Reason Start Date Expiration Date Visits Requested Visits Authorized [id number] Pending Review Auto-Generat ed Referral 04/04/2022 05/04/2023 1 1 Summary Purpose Advance Directives No Advanced Directives Records Found Additional Source Comments Source Comments (unrecognize d section and content) In the event this informatio n is protected by the Federal Confidentiality of Alcohol and Drug Abuse Patient Records regulations: The Federal rules restrict any use of the information to criminally investigate or prosecute any alcohol or drug abuse patient.[facility] the event this information is protected by the Federal Confidentiality of Alcohol and Drug Abuse Patient Records regulations: The Federal rules restrict any use of the information to criminally investigate or prosecute any alcohol or drug abuse patient.[facility] the event this information is protected by the Federal Confidentiality of Alcohol and Drug Abuse Patient Records regulations: The Federal rules restrict any use of the information to criminally investigate or prosecute any alcohol or drug abuse patient.[facility] the event this information is protected by the Federal Confidentiality of Alcohol and Drug Abuse Patient Records regulations: The Federal rules restrict any use of the information to criminally investigate or prosecute any alcohol or drug abuse patient.[facility] Reason for Visit (unrecogniz ed section and content) Reason Comments Overweight New Patient Specialty Diagnoses / Procedures Referred By Contac t Referred To Contact Endocrinology Diagnoses Unintended weight gain Elevated testosterone level in female Procedures CONSULT TO ENDOCRINOLOGY OFFICE/OUTPATIENT NEW HIGH MDM 60-74 MINUTES Eusebia Victoria APRN.[facility] [address] [place] [address] Referral ID Status Reason Start Date Expiration Date Visits Requested Visits Authorized [id number] Pending Review PCP Requested Referral 04/04/2022 04/04/2023 1 1 Reason Comments Results Care Teams (unrecognized sec tion and content) 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 This clinical summary was aggregated from multiple sources. Caution should be exercised in using it in the provision of clinical care. This summary normalizes information from multiple sources, and as a consequence, information in this document may materially change the coding, format and clinical context of patient data. In addition, data may be omitted in some cases. CLINICAL DECISIONS SHOULD BE BASED ON THE PRIMARY CLINICAL RECORDS. [facility] provides no warranty or guarantee of the accuracy or completeness of information in this document.
[2023-09-28 09:51] LABS: Absolute Lymphocyte Count 2.48 X10^3/uL (0.83-4.51); Absolute Neutrophil Count 3.6 X10^3/uL (2.0-7.7); Basophil# 0.07 X10^3/uL; Eosinophil# 0.17 X10^3/uL; Eosinophils% 2.4 % (0-5); Hematocrit 38.8 % (37-47); Hemoglobin 12.2 g/dL (12.0-15.0); Lymphocyte # 2.48 X10^3/ul (0.83-4.51); Lymphocyte % 35.3 % (19-41); Mean Corp Hgb Conc 31.4 g/dL (32-36); Mean Corpuscular Hgb 29.4 pg (27.0-32.0); Mean Corpuscular Volume 93.5 fL (81-99); Mean Platelet Vol. 10.7 fl (6.2-12.0); NRBC Flagged by Analyzer 0 % (0-5); Neutrophil # 3.59 X10^3/uL (2.7-7.7); Platelet Count 419 K/mm3 (150-450); RBC Distribution Width CV 13.5 % (11.6-14.6); RBC Distribution Width SD 46.2 fl (35.1-43.9); Red Blood Count 4.15 M/mm3 (4.2-5.4)
[2023-09-28 10:15] LABS: AST(SGOT) 21 U/L (15-37); Alanine Aminotransfer ALT/SGPT 31 U/L (13-56); Albumin, Serum 3.7 g/dL (3.2-5.0); Alkaline Phosphatase 64 U/L (45-117); Anion Gap 7 (5-15); BUN 12 mg/dL (7-18); BUN/Creat Ratio 17.7 RATIO (10-20); Calcium,Total 8.5 mg/dL (8.5-10.1); Chloride 104 mmol/L (98-107); Creatinine, Serum 0.68 mg/dL (0.55-1.02); EST Glomerular Filtration Rate 101 mL/min (>60); Est Glom Filt Rate - Afr Amer 122 mL/min (>60); Globulin 3.8 g/dL (2.2-4.2); Glucose 77 mg/dL (74-106); Potassium 4.2 mmol/L (3.5-5.1); Protein, Total 7.5 g/dL (6.4-8.2); Sodium Level 138 mmol/L (136-145)
== END | disposition home or self-care (01) ==
LOC: MTLAB 07:35
PROVIDERS: PCP Nurse Practitioner Family; Referring Provider Internal Medicine Rheumatology; Visit Provider Internal Medicine Rheumatology
DX: L40.59 Other psoriatic arthropathy (principal); Z79.899 Other long term (current) drug therapy
CPT/HCPCS: 36415; 80053; 85025

== ENCOUNTER → 2023-11-24 | Outpatient (CLI) | payer OTHER, SELFPAY ==
--- OUTSIDE RECORDS SUMMARY | 2023-11-24 10:26 | XMS RPT_ITS | CCD ---
Author Name Unknown Address [address] [place] [address] Organization [facility] Care Team Providers Care Lead Solutions Architect Name Role Phone Ariana Ceballos Unavailable Papo Vanegas Unavailable Carmen Velazquez Unavailable Unavailable Clarita Valerio Unavailable Unavailable Unavailable Unavailable Ariana Ceballos DO Primary Care Provider Ariana Ceballos DO Primary Care Provider Ariana Ceballos DO Primary Care Provider EUSEBIA VICTORIA Attending Unavailable ARIANA CEBALLOS Primary Care Unavailab le Medications Completed/Discontinued Medications Medication Drug Class(es) Dates [...] {Tablet} Refills: 0 Ordered: 22-Aug-2016 Ariana Ceballos DO, DO, Kathleen Start : 22-Aug-2016 End : 21-Sep-2016 Inactive [...] [FATIGUE] Resolved: 08-22-2016 08-22-2016 Episodic Nutritional deficiencies (1 source) Vitamin D deficiency; Translations: [Vitamin D deficiency, unspecified] Chronic Other bone disease and musculoskeletal deformities [...] Episodic Other nutritional; endocrine; and metabolic disorders (7 sources) Body mass index 30+ - obesity; Translations: [Body mass index (BMI) 39.0-39.9, adult] Onset: 05-16-2022 05-04-2017 Chronic Other nutritional; endocrine; and metabolic disorders (1 source) Obesity; Translations: [Obesity, unspecified] 11-02-2023 Chronic Other nutritional; endocrine; and metabolic disorders [...] te Episodic/Chronic Other and unspecified benign neoplasm (5 sources) Fibroadenoma of breast; Translations: [Benign neoplasm of unspecified breast] Onset: 09-09-2015 09-09-2015 Episodic Other ear and sense organ disorders (1 source) Otalgia; Translations: [Ear ache] Resolved: 07-21-2015 07-21-2015 Episodic Other skin disorders (1 source) Skin tag; Translations: [Skin tag] Resolved: 07-21-2015 08-18-2015 Episodic Unclassified (1 source) BMI 33.0-33.9,adult Unclassified (1 source) Abortions/Miscarria ges; Translations: [Abortions/Miscarri ages] 05-04-2017 Results Test Name Value Interpretation Reference Range Facil ity Vital Signs Date Time Vital Sign Value Performing Clinician Facility 11-02-2023 08:13-0500 Body height 162.6 cm Eusebia Victoria QUITLINE COUNSELOR.BHARATI Work Phone: [facility] 11-02-2023 08:13-0500 Body weight 101.61 kg Eusebia Victoria APRN.BHARATI Work Phone: [facility] 11-02-2023 08:13-0500 Diastolic blood pressure 72 mm[Hg] Eusebia Victoria QUITLINE COUNSELOR.BHARATI Work Phone: [facility] 11-02-2023 08:13-0500 Systolic blood pressure 120 mm[Hg] Eusebia Victoria QUITLINE COUNSELOR.BHARATI Work Phone: [facility] 05-16-2022 12:58-0400 Body height 161.3 cm Latoya Macdonald MD Work Phone: [facility] 05-16-2022 12:58-0400 Body weight 102.06 kg Latoya Macdonald MD Work Phone: [facility] 05-16-2022 12:58-0400 Diastolic blood pressure 92 mm[Hg] Latoya Macdonald MD Work Phone: [facility] 05-16-2022 12:58-0400 Heart rate 80 /min Latoya Macdonald MD Work Phone: [facility] 05-16-2022 12:58-0400 Respiratory rate 16 /min Latoya Macdonald MD Work Phone: [facility] 05-16-2022 12:58-0400 SaO2% (BldA) [Mass fraction] 99 % Latoya Macdonald MD Work Phone: [facility] 05-16-2022 12:58-0400 Systolic blood pressure 136 mm[Hg] Latoya Macdonald MD Work Phone: [facility] 04-04-2022 08:28-0400 Body height 162.6 cm Eusebia Plotts QUITLINE COUNSELOR.CNM Work Phone: [facility] 04-04-2022 08:28-0400 Body weight 102.97 kg Eusebia Plotts QUITLINE COUNSELOR.CNM Work Phone: [facility] 04-04-2022 08:28-0400 Diastolic blood pressure 80 mm[Hg] Eusebia Plotts QUITLINE COUNSELOR.CNM Work Phone: [facility] 04-04-2022 08:28-0400 Systolic blood pressure 122 mm[Hg] Eusebia Plotts QUITLINE COUNSELOR.CNM Work Phone: [facility] 05-04-2017 08:02-0400 BMI (Body Mass Index) 33.19 kg/m2 [facility]: 05-04-2017 08:02-0400 BP Diastolic 80 mm[Hg] Ariana Moncho [facility] Work Phone: Encounters Encounter Date Encounter Type Care Provider Facility Start: 11-02-2023 End: 11-02-2023 ambulatory EUSEBIA VICTORIA Facility:[facility] Start: 11-02-2023 End: 11-02-2023 Patient encounter procedure Eusebia Victoria QUITLINE COUNSELOR.CNM Work Phone: OB/Gynecology Procedures Date Procedure Procedure Detail Performing Clinician Start: 09-15-2022 ROBINA SCREENING W LALITHA Eusebia Victoria QUITLINE COUNSELOR.CNM Work Phone: Start: 07-29-2021 Mammography Eusebia Victoria QUITLINE COUNSELOR.CNM Work Phone: Start: 09-01-2015 End: 09-01-2015 Breast Limited Unilateral Comments: See Note; NOTES: [facility] Imaging Services [address] [place] [address] Verdana 4d Breast Limited Unilateral MR#: [id number] Acct: [id number] Name: KAREN BRENNAN Rep #: [id number] : 1980 F 35 From: Benjamin Vega MD PCP: Ariana Ceballos DO Status: REG CLI Study: Breast Limited Unilateral Date of Exam: 09/01/15 Exam# [id number] Ordering Dr: Ariana Ceballos DO STUDY: ULTRASOUND [...] Benjamin Vega MD at 9:49 EST Tel [phone], Service support [phone], CC: Ariana Ceballos DO Customer Sales Specialist: Signed Ariana Ceballos Work Phone: Start: 08-25-2015 End: 08-25-2015 Bilat Scrn Digital AND CAD Comments: See Note; NOTES: [facility] Imaging Services [address] [place] [address] Verdana 4d Bilat Scrn Digital AND CAD MR#: [id number] Acct: [id number] Name: KAREN BRENNAN Rep #: [id number] : 1980 F 34 From: Benjamin Vega MD PCP: Ariana Ceballos DO Status: REG CLI Study: Bilat Scrn Digital AND CAD Date of Exam: 08/25/15 Exam# [id number] Ordering Dr: Ariana Ceballos DO MAMMOGRAPHY - [...] delay biopsy of a clinically suspicious abnormality. [id number] Electronically Signed: Benjamin Vega MD at 9:13 EST Tel [phone], Service support [phone], CC: Ariana Ceballos DO Customer Sales Specialist: Signed Ariana Ceballos Work Phone: Start: 03-20-2013 End: 03-20-2013 No Known Past Surgical History Carmen Messenger Plan of Treatment Date Care Activity Detail Author Start: 04-04-2027 HPV TESTING HPV TESTING [facility] Start: 04-04-2027 PAP TESTING PAP TESTING [facility] Start: 04-04-2027 Screening for malignant neoplasm of cervix [facility] Start: 10-01-2023 Depression Assessment Depression Assessment [facility] Start: 09-15-2023 Mammography Mammogram Screening [facility] Start: 09-15-2023 Screening for malignant neoplasm of breast Mammogram Screening [facility] Start: 06-01-2023 Covid-19 Vaccine () Covid-19 Vaccine () [facility] Start: 06-01-2023 Influenza [facility] Start: 10-01-2022 Depression Assessment Depression Assessment [facility] Start: 07-29-2022 Mammography MAMMOGRAM [facility] Start: 06-01-2022 Influenza vaccination INFLUENZA (#1) [facility] Start: 05-16-2022 End: 05-16-2023 17-Hydroxyprogesterone [Mass/volume] in Serum or Plasma HYDROXYPROGESTERO-17 Lab Routine Unintended weight gain Elevated testosterone level in female Hirsutism Expected: 05/16/2022, Expires: 05/16/2023 [facility] Work Phone: Immunizations Immunization Date Immunization Notes Care Provider Jer umana 08-06-2020 influenza, injectabl e, quadrivalent, contains preservative Eusebia Victoria APRN.CNM Work Phone: [facility] 08-06-2020 influenza virus vacc ine, unspecified formulation Screen Wstr [facility] Payers Date Payer Category Payer Private Health Insurance [facility] CHO[employer] PLUS [id number] 2019-Present [phone] [address] [place] [address] O [id number] 2019 Private Health Insurance [facility] CHOICE PLUS [id number] 2019-Present [phone] [address] [place] [address] O [id number] 2019 Unknown [id number] Unknown [facility] Social History Date Type Detail Facility Alcohol Use: Never smoker [facility] Work Phone: Start: 05-16-2022 End: 11-02-2023 Caffeine Use [facility] Director al Medicine Work Phone: Clinical Notes 04-04-2022 to 11-02-2023 Patient InstructionsEusebia Victoria APRN.CNM - 11/02/2023 8:11 AM Tracie Rachel RT(R) - 09/15/2022 7:50 AM ESTTelephone Encounter - Keena Newberry RN - 06/06/2022 10:55 AM EDT Note Date & Type Note Facility 11-02-2023 Note HNO ID: [id number] Author: EUSEBIA VICTORIA APRN.CNM Service: ? Author Type: Eyelet Punch Operator Type: Progress Notes Filed: 11/02/2023 10:04 Note Text: Rustic Fence Builder offered: Patient declines. Karen is a 43 year old who presents for an annual gynecologic exam without complaints. Started treatment with methotrexate for arthritis. C/O some vaginal dryness at times. Menses: cycles every 24-34 days and 4-6 days of flow. Increased cramping- some clots Contraception: vasectomy HPV vaccine: No Last Pap: 04/11/2022 normal HPV: 04/06/2022 negative History of abnormal pap: No Last mammogram: 2021normal Abnormal 2020- nomal Sexually active: Yes Pain with intercourse: No Postcoital bleeding: No Hot flashes: No Night sweats: Yes couple times a month Vaginal dryness: Yes OB History T2 L2 SAB1 IAB0 Ectopic0 Multiple0 Live Births2 Jockey Agent History LMP: 03/21/2022, Having periods Age at Menarche: Age at First : Age at Menopause: Jockey Agent History Comments: Sexual Activity: Yes; Male Contraception: [...] Allergies and current medication updated:Yes EXAM: BP 120/72 Ht 5' 4 (1.63m) Wt 224 lb (101.6kg) LMP 10/25/2023 BMI 38.43 kg/(m2). GENERAL: pleasant, female in no apparent distress HEENT: Normocephalic and atraumatic NECK: Supple and full range of motion DERMATOLOGY: Normal and without lesions BREAST: soft, non-tender, symmetric, no dominant mass, normal nipple-areolar complex, no lymphadenopathy, and no nipple discharge CHEST: Normal inspiratory effort ABDOMEN: soft, non-tender, and no masses PELVIC: external genitalia normal, normal Bartholin's glands, urethra, [place]'s glands, no vulvar lesions, no cervical lesions, good vaginal support, physiologic discharge present, normal appearing perineal body and perianal region BIMANUAL: uterus normal size, shape and consistency, no adnexal masses, non-tender, and no cervical motion tenderness RECTOVAGINAL: deferred. NEURO: alert and oriented x3,exam grossly non-focal EXTREMITIES: normal ASSESSMENT/PLAN: 1) Health maintenance: Pap/HPV up to date. Mammogram ordered. Nutrition, exercise and routine health maintenance exams reviewed. Lipids/glucose: followed by PCP 2) Contraception: vasectomy. 3) STD screening: Declined STD check. Hand out on vaginal lubricants/ moisturizers given 4) Follow up one year or sooner as needed Eusebia Victoria APRN.CNM [facility] 11-02-2023 Instructions Eusebia Victoria APRN.CNM - 11/02/2023 8:40 AM EST Non-Hormonal Vaginal Lubricants & Vaginal Moisturizers Symptoms [...] penis or fingers just before sex. Coconut, Sulphur Rock, Avocado or Peanut oil- natural oils are not recommended for use with latex condoms or diaphragms as they can damage the latex Astroglide- has both water and silicone based KY Jelly- water based Just like me - Pure Romance Almost Naked Good Clean Love - Bio Nude ultra-sensitive Pjur- silicone ID Millennium- silicone Vaginal Moisturizers- Vaginal moisturizers are intended for use routinely, typically two or three days per week, not just during sexual activity. These products are typically bioadhesives. Many moisturizer products are available in pharmacies and online. Restore- ZoeMobcleImagimod Replens Chas Feminease Moist Again K-Y Liquid beads Products to assist with maintaining vaginal ph IsoFresh [email or web address] BiopHresh Rephresh documented in this encounter [facility] 11-02-2023 History of Presen t illness Narrative Rustic Fence Builder offered: Patient declines. Karen is a 43 year old who presents for an annual gynecologic exam without complaints. Started treatment with methotrexate for arthritis. C/O some vaginal dryness at times. Menses: cycles every 24-34 days and 4-6 days of flow. Increased cramping- some clots Contraception: vasectomy HPV vaccine: No Last Pap: 04/11/2022 normal HPV: 04/06/2022 negative History of abnormal pap: No Last mammogram: 2021normal Abnormal 2020- nomal Sexually active: Yes Pain with intercourse: No Postcoital bleeding: No Hot flashes: No Night sweats: Yes couple times a month Vaginal dryness: Yes OB History T2 L2 SAB1 IAB0 Ectopic0 Multiple0 Live Births2 Jockey Agent History LMP: 03/21/2022, Having periods Age at Menarche: Age at First : Age at Menopause: Jockey Agent History Comments: Sexual Activity: Yes; Male Contraception: [...] Allergies and current medication updated:Yes EXAM: BP 120/72 Ht 5' 4 (1.63m) Wt 224 lb (101.6kg) LMP 10/25/2023 BMI 38.43 kg/(m^2). GENERAL: pleasant, female in no apparent distress HEENT: Normocephalic and atraumatic NECK: Supple and full range of motion DERMATOLOGY: Normal and without lesions BREAST: soft, non-tender, symmetric, no dominant mass, normal nipple-areolar complex, no lymphadenopathy, and no nipple discharge CHEST: Normal inspiratory effort ABDOMEN: soft, non-tender, and no masses PELVIC: external genitalia normal, normal Bartholin's glands, urethra, [place]'s glands, no vulvar lesions, no cervical lesions, good vaginal support, physiologic discharge present, normal appearing perineal body and perianal region BIMANUAL: uterus normal size, shape and consistency, no adnexal masses, non-tender, and no cervical motion tenderness RECTOVAGINAL: deferred. NEURO: alert and oriented x3,exam grossly non-focal EXTREMITIES: normal ASSESSMENT/PLAN: 1) Health maintenance: Pap/HPV up to date. Mammogram ordered. Nutrition, exercise and routine health maintenance exams reviewed. Lipids/glucose: followed by PCP 2) Contraception: vasectomy. 3) STD screening: Declined STD check. Hand out on vaginal lubricants/ moisturizers given 4) Follow up one year or sooner as needed Eusebia Victroia APRN.CNM documented in this encounter [facility] 09-15-2022 History of Presen t illness Narrative Radiology Service Progress Note PATIENT NAME: Karen [...] 2022 7:36 AM documented in this encounter [facility] 06-06-2022 Miscellaneous Notes [employer] message was reviewed on 06/02/2022. Closed. Call placed and my chart message sent with information below Dear Indu, The testosterone level was normal. The cortisol in the saliva test was also normal. The remaining of the labs were normal with the exception of elevated cholesterol (for which I recommend a diet low in saturated fat) and mild decrease in vitamin D (recommend over the counter vitamin D 1,000 units every day) Dr. Fito Harris documented in this encounter [facility] 05-16-2022 Instructions Latoya Macdonald MD - 05/16/2022 1:24 PM EDT Saliva cortisol test at 11 PM Blood work in the morning fasting documented in this encounter [facility] 05-16-2022 History of Presen t illness [...] anxiety. ENDOCRINE: Negative for diabetes, thyroid or Sauk's. HEMATOLOGIC/LYMPHATIC: Negative for bruising or bleeding. ALLERGIC/IMMUNOLOGIC: [...] Latoya Macdonald MD documented in this encounter [facility] 04-04-2022 Instructions Eusebia Victoria APRN.BHARATI - 04/04/2022 8:44 AM EDT Non-Hormonal Vaginal [...] penis or fingers just before sex. Coconut, Sulphur Rock, Avocado or Peanut oil- natural oils are [...] are available in pharmacies and online. 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 LMP: 03/21/2022, Having periods Age at Menarche: Age at First : Age at Menopause: Jockey Agent History Comments: Sexual Activity: Yes; Male Contraception: [...] external genitalia normal, normal Bartholin's glands, urethra, [place]'s glands, no vulvar lesions, no cervical lesions, [...] Eusebia Victoria APRN.CNM documented in this encounter [facility] Elevated testosterone level in female- Primary Unspecified endocrine disorder Unintended weight gain Abnormal weight gain Hirsutism Vitamin D deficiency Unspecified vitamin D deficiency BMI 39.0-39.9,adult Body Mass Index 39.0-39.9, adult [facility] Diagnosis Encounter for screening mammogram for breast cancer [facility] Diagnosis Encounter for gynecological examination (general) (routine) without abnormal findings- Primary Encounter for screening mammogram for breast cancer Class 2 obesity with body mass index (BMI) of 38.0 to 38.9 in adult, unspecified obesity type, unspecified whether serious comorbidity present documented in this encounter [facility] for referral (narrative)* Diagnostic Procedure Only (Routine) - Closed Specialty Diagnoses / Procedures Referred By Mary Alice sun Referred To Contact [facility] Diagnoses Encounter for screening mammogram for breast cancer Procedures ROBINA SCREENING W LALITHA SCREENING DIGITAL BREAST TOMOSYNTHESIS BI SCREENING MAMMOGRAPHY BI 2-VIEW BREAST INC Eusebia Balderrama APRN.CNM [address] [place] [address] [facility] [address] [place] [id number] Referral ID Status Reason Start Date Expiration Date V isits Requested Visits Authorized [id number] Closed Auto-Generate d Referral 04/04/2022 05/04/2023 1 1 [facility] Diagnostic Procedure Only (Routine) - Authorized Specialty Diagnoses / Procedures Referred By Mary Alice sun Referred To Contact [facility] Diagnoses Encounter for gynecological examination (general) (routine) without abnormal findings Encounter for screening mammogram for breast cancer Procedures ROBINA SCREENING W LALITHA SCREENING DIGITAL BREAST TOMOSYNTHESIS BI SCREENING MAMMOGRAPHY BI 2-VIEW BREAST INC Eusebia Balderrama APRN.CNM [address] [place] [address] [facility] [address] [place] [address] Referral ID Status Reason Start Date Expiration Date Visits Requested Visits Authorized [id number] Authorized Auto-Generat ed Referral 11/02/2023 12/01/2024 1 1 [facility] for visit Narrative* Diagnostic Procedure Only (Routine) - Closed Specialty Diagnoses / Procedures Referred By Mary Alice t Referred To Contact [facility] Diagnoses Encounter for screening mammogram for breast cancer Procedures ROBINA SCREENING W LALITHA SCREENING DIGITAL BREAST TOMOSYNTHESIS BI SCREENING MAMMOGRAPHY BI 2-VIEW BREAST INC ANDRADE Victoria EusebiaKIKA.M [address] [place] [address] [facility] [address] [place] [address] Referral ID Status Reason Start Date Expiration Date V isits Requested Visits Authorized [id number] Closed Auto-Generate d Referral 04/04/2022 05/04/2023 1 1 [facility] Family History No Family History Records FoundUnknown Family Member Name Dates Details Breast Cancer [...] NEW HIGH MDM 60-74 MINUTES Eusebia Victoria APRN.[facility] [address] [place] [address] Referral ID Status Reason Start Date Expiration Date Visits Requested Visits Authorized [id number] Pending Review PCP Requested Referral 04/04/2022 04/04/2023 1 1 Specialty Diagnoses / Procedures Referred By Mary Alice sun Referred To Contact [facility] Diagnoses Encounter for screening mammogram for breast cancer Procedures ROBINA SCREENING W LALITHA SCREENING DIGITAL BREAST TOMOSYNTHESIS BI SCREENING MAMMOGRAPHY BI 2-VIEW BREAST INC CAD Eusebia Victoria APRN.[facility] [address] [place] [address] [facility] [address] [place] [address] Referral ID Status Reason Start Date Expiration Date Visits Requested Visits Authorized [id number] Pending Review Auto-Generat ed Referral 04/04/2022 05/04/2023 [...] or prosecute any alcohol or drug abuse patient.[facility] the event this information is protected by the Federal Confidentiality of Alcohol and Drug Abuse Patient Records regulations: The Federal rules restrict any use of the information to criminally investigate or prosecute any alcohol or drug abuse patient.[facility] the event this information is protected by the Federal Confidentiality of Alcohol and Drug Abuse Patient Records regulations: The Federal rules restrict any use of the information to criminally investigate or prosecute any alcohol or drug abuse patient.[facility] the event this information is protected by the Federal Confidentiality of Alcohol and Drug Abuse Patient Records regulations: The Federal rules restrict any use of the information to criminally investigate or prosecute any alcohol or drug abuse patient.[facility] the event this information is protected by the Federal Confidentiality of Alcohol and Drug Abuse Patient Records regulations: The Federal rules restrict any use of the information to criminally investigate or prosecute any alcohol or drug abuse patient.[facility] Reason for Visit (unrecogniz ed section and content) Reason Comments Overweight New Patient Specialty Diagnoses / Procedures Referred By Contac t Referred To Contact Endocrinology Diagnoses Unintended weight gain Elevated testosterone level in female Procedures CONSULT TO ENDOCRINOLOGY OFFICE/OUTPATIENT NEW HIGH MDM 60-74 MINUTES Eusebia Victoria APRN.CN [address] [place] [address] Referral ID Status Reason Start Date Expiration Date Visits Requested Visits Authorized [id number] Pending Review PCP Requested Referral 04/04/2022 04/04/2023 1 1 Reason Comments Results Reason Comments Yearly Exam Care Teams (unrecognized sec tion and content) Lead Solutions Architect Relationship Specialty Start Date End Date Ariana Ceballos DO PCP - General Internal Medicine 09/01/15 Lead Solutions Architect Relationship Specialty Start Date End Date Ariana Ceballos DO PCP - General Internal Medicine 09/01/15 Lead Solutions Architect Relationship Specialty Start Date End Date Ariana Ceballos DO PCP - General Internal Medicine 09/01/15 Lead Solutions Architect Relationship Specialty Start Date End Date Ariana [...] BE BASED ON THE PRIMARY CLINICAL RECORDS. [facility]. provides no warranty or guarantee of the accuracy or completeness of information in this document.
[2023-11-24 10:50] LABS: Absolute Lymphocyte Count 1.57 X10^3/uL (0.83-4.51); Absolute Neutrophil Count 5.5 X10^3/uL (2.0-7.7); Basophil# 0.04 X10^3/uL; Basophil% 0.5 % (0-1); Eosinophil# 0.24 X10^3/uL; Eosinophils% 2.9 % (0-5); Hematocrit 40.7 % (37-47); Hemoglobin 13.2 g/dL (12.0-15.0); Lymphocyte # 1.57 X10^3/ul (0.83-4.51); Lymphocyte % 19.3 % (19-41); Mean Corp Hgb Conc 32.4 g/dL (32-36); Mean Corpuscular Volume 92.5 fL (81-99); Mean Platelet Vol. 10.2 fl (6.2-12.0); Monocyte# 0.76 X10^3/uL; Monocyte% 9.3 % (0-10); NRBC Flagged by Analyzer 0 % (0-5); Neutrophil # 5.51 X10^3/uL (2.7-7.7); Neutrophil % 67.8 % (47-70); Platelet Count 377 K/mm3 (150-450); RBC Distribution Width CV 14.1 % (11.6-14.6); RBC Distribution Width SD 48.1 fl (35.1-43.9); White Blood Count 8.1 K/mm3 (4.4-11.0)
[2023-11-24 11:16] LABS: AST(SGOT) 21 U/L (15-37); Alanine Aminotransfer ALT/SGPT 32 U/L (13-56); Albumin, Serum 3.9 g/dL (3.2-5.0); Alkaline Phosphatase 62 U/L (45-117); Anion Gap 4 (5-15); BUN 11 mg/dL (7-18); BUN/Creat Ratio 16.3 RATIO (10-20); Calcium,Total 9.1 mg/dL (8.5-10.1); Chloride 107 mmol/L (98-107); Creatinine, Serum 0.68 mg/dL (0.55-1.02); EST Glomerular Filtration Rate 101 mL/min (>60); Est Glom Filt Rate - Afr Amer 122 mL/min (>60); Globulin 4.1 g/dL (2.2-4.2); Glucose 92 mg/dL (74-106); Potassium 4.1 mmol/L (3.5-5.1); Sodium Level 138 mmol/L (136-145)
== END | disposition home or self-care (01) ==
PROVIDERS: PCP Nurse Practitioner Family; Referring Provider Internal Medicine Rheumatology; Visit Provider Internal Medicine Rheumatology
DX: L40.59 Other psoriatic arthropathy (principal); Z79.899 Other long term (current) drug therapy; L40.8 Other psoriasis
CPT/HCPCS: 36415; 80053; 85025

== ENCOUNTER 2023-11-30 08:43 | Emergency (ER) | payer OTHER, SELFPAY ==
[2023-11-30 08:44] VITALS: BP 146/90; PULSE 72; RESP 18; TEMP 37.2; O2SAT 100; BMI 38.5
--- NOTE | 2023-11-30 09:14 | CT_ITS ---
STUDY: CT ABDOMEN AND PELVIS WITH CONTRAST REASON FOR EXAM: Female, 43 years old. RLQ abd pain RADIATION DOSAGE (If Supplied By Facility): CTDIvol = ( 21.07 ) mGy, DLP = ( 2571.73 ) mGycm TECHNIQUE: Transaxial images were obtained from the dome of the diaphragm to the symphysis pubis without oral contrast. IV 100mL Isovue-300 was administered. Sagittal and coronal images were reconstructed. Delayed images also performed. Individualized dose optimization techniques were used for this CT. COMPARISON: None. FINDINGS: The visualized lung bases are unremarkable. The visualized portions of the heart are within normal limits. Liver is unremarkable aside from 2 low-density hemangiomas which become less conspicuous on the delayed images that were performed. Normal gallbladder and extrahepatic biliary system. Normal spleen. Normal pancreas. Normal bilateral adrenal glands. Normal-appearing left kidney. Right kidney shows hydronephrosis and hydroureter with perinephric and periureteral inflammatory stranding. Findings due to two separate 2mm stones in the distal right ureter seen on axial images 111-112 Normal visualized stomach. Normal small intestine. Normal colon. The appendix is visualized and appears normal. Appendix is seen on coronal recon images 48 through 53 Normal abdominal aorta. Normal inferior vena cava. Normal retroperitoneum. Normal urinary bladder. Uterus is mildly enlarged suggesting there may be underlying fibroids. No suspicious adnexal mass or free fluid Normal abdominal wall. Normal osseous structures. CT/Abdomen/Pelvis W IV Cont ONLY IMPRESSION: Right-sided hydronephrosis and hydroureter with perinephric and periureteral inflammatory stranding. Findings due to 2 separate small stones in the distal right ureter measuring 2 and 3 mm. 2 low-density hemangiomas in the right lobe of the liver larger measures 4 cm, smaller 1 cm Mildly enlarged uterus suggesting underlying fibroids Normal appendix visualized Electronically Signed: Jesus Alberto Dominguez MD at 10:39 EST ,
--- NOTE | 2023-11-30 09:15 | ED.VIS.GI ---
HPI HPI - GI History of Present Illness Chief Complaint: Abd Pain Informant: patient Abdominal Pain/Flank Pain Onset: Today and Hours Context: Sudden Onset Timing: Continuous Quality: Cramping and Sharp Location: RLQ Current Severity: Moderate Maximum Severity: Moderate Worsened by: Nothing Relieved by: Nothing Nausea/Vomiting/Emesis GI Symptom: Positive for Nausea and Vomiting Onset: Today Severity: Moderate Diarrhea/Melena/Hematochezia GI Symptom: Negative for Diarrhea, Melena or Hematochezia Associated Symptoms Associated Symptoms: Negative for Dysuria, Frequency, Hematuria or Urgency Narrative Narrative: 43-year-old female history of psoriatic arthritis and hypertension. Right lower quadrant abdominal pain began today around 5 AM and worsened at 630. Associated nausea and vomiting 5 times. No dysuria. No constipation. No diarrhea. Last menstrual period was on Sunday. No prior history of similar pain. Denies any fever. No prior abdominal surgeries. Prior similar symptoms: No Recent Illness/Hospitalization: No PFSH PFSH Medical History (Updated 11/30/23 @ 10:[address] Will Fox MD) Migraine Psoriasis Psoriatic arthritis Home Medications amoxicillin 875 mg-potassium clavulanate 125 mg tablet 1 tab PO BID #20 tabs 09/16/21 [Rx Last Taken Unknown] ondansetron 4 mg disintegrating tablet 4 mg PO Q6H PRN nausea and vomiting #7 tabs 11/30/23 [Rx Last Taken Unknown] oxycodone-acetaminophen 5 mg-325 mg tablet (Percocet) 1 tab PO Q4H PRN pain 3 days #12 tabs 11/30/23 [Rx Last Taken Unknown] Allergy/AdvReac Type Severity Reaction Status Date / Time No Known Allergies Allergy Verified 09/09/23 08:22 Family History Mother Lupus (systemic lupus erythematosus) Uncle Thyroid disorder Father Hypertension Surgical History Dental root implant present H/O wisdom tooth extraction Social History Smoking Status: Never smoker alcohol intake: never ROS ROS ED ROS Narrative Right lower quadrant abdominal pain. Nausea and vomiting. Review of Systems ROS Unobtainable: Denies due to encephalopathy Constitutional Constitutional ED: Denies chills or fever(s) ENT ENT ED: Denies ear pain Cardiovascular Cardiovascular: Denies chest pain Respiratory/Chest Respiratory/Chest: Denies cough or dyspnea Gastrointestinal Gastrointestinal: Reports abdominal pain, nausea and vomiting; Denies constipation, diarrhea or melena Genitourinary Genitourinary ED: Denies dysuria or hematuria Musculoskeletal Musculoskeletal: Denies arthralgias, back pain, myalgias or neck pain Integumentary Denies abscess or Abrasions Neurologic Neurologic: Denies headache(s) Psychiatric Psychiatric: Denies anxiety or depression Endocrine Endocrinology: Denies polydipsia Hematologic/Lymphatic Hematologic/Lymphatic: Denies easy bleeding, easy bruising or lymphadenopathy Allergic/Immunologic Allergic/Immunologic ED: Denies mouth swelling, tongue swelling or urticaria EXAM Physical Exam Narrative Exam Narrative: [id number] female vital signs stable afebrile. HEENT exam unremarkable. Neck nontender. Lungs clear. Heart regular rhythm no murmur rate about 70. Abdomen soft nondistended normal bowel sounds. Tender in the right lower quadrant. No hernia or mass. No distention. No obstruction. Left side of the abdomen and right upper quadrant unremarkable. No Sierra sign. No signs of trauma. Back nontender. Moving all 4 extremities. Calves are nontender without edema or cords. Patient is awake and alert. No focal motor deficits. Const Vital Signs: 11/30/23 08:44 11/30/23 10:15 Temperature 99 F 98.7 F Temperature Source Temporal Oral Pulse Rate 72 61 Respiratory Rate 18 12 Blood Pressure 146/90 H 151/82 H Blood Pressure Mean 108 105 Pulse Ox 100 97 Oxygen Delivery Method Room Air Room Air Positive well nourished and well developed; Negative for cachectic, contractures or unkempt General Appearance ED: well developed and NAD; Negative for unkempt, cachectic, contractures or pallor Nutritional Appearance: Negative for cachectic HEENT Reports moist mucous membranes; Denies dry mucous membranes normocephalic and atraumatic; Negative for trauma or tenderness Mouth ED: No dry mucous membranes Mouth: No dry mucous membranes Eyes PERRL and EOMs intact bilaterally General Eye ED: Negative for pale conjunctiva or scleral icterus Neck no lymphadenopathy, supple and no JVD General: Negative for tenderness Carotids: Negative for other Lymph Lymphatic: Negative for other Resp normal respiratory effort and clear to auscultation bilaterally Effort and Inspection: Negative for respiratory distress Auscultation: Negative for rales, rhonchi, wheezes or diminished lung sounds Cardio regular rate, regular rhythm, S1 normal heart sound, S2 normal heart sound and no murmurs Rate: Negative for bradycardia or tachycardic Rhythm: Negative for abnormal rhythm GI non-distended and no masses; Negative for non-tender Inspection: Negative for abdominal distention Auscultation: normoactive bowel sounds Palpation: soft; Negative for guarding or rebound tenderness present Back/Spine no CVA tenderness General Back: Negative for CVA tenderness Cervical Spine: Negative for cervical spine tenderness Thoracic Spine / Upper Back: Negative for thoracic spinal tenderness Lumbar Spine / Lower Back: Negative for lumbar spinal tenderness Coccyx: Negative for other Extremity full ROM General Extremety ED: Negative for edema or tenderness General Extremity: Negative for edema Neuro CN's II-XII intact bilaterally and moves all extremities Sensorium / Orientation: alert, oriented to person, oriented to place and oriented to time; Negative for orientation impaired, confused, lethargic or stuporous Motor Exam: strength 5/5 throughout Psych mental status grossly normal and thought process normal Appearance: Negative for unkempt Attitude: No agitated Mood & Affect: Negative for depressed, anxious or tearful Skin General Skin Exam: Negative for jaundice or pallor Lesions: no lesions Rashes: no rashes Trauma: Negative for abrasion Nails: Negative for discolored MDM MDM MDM Narrative Medical decision making narrative: 43-year-old female right lower quadrant abdominal pain that began around 5 AM this morning. Obviously could be appendicitis versus kidney stone versus other etiologies. There is no obvious hernia. Currently it seems too low to be her gallbladder. There is no signs of obstruction. Treated with IV fluids for nausea and vomiting. Zofran for nausea morphine for pain. CAT scan labs are pending. Repeat exam patient doing well at 10:35 AM. Pain improved with the medication. Currently her right lower quadrant sergo exam is nontender. We have gone over her labs. We are waiting on urine sample and the CAT scan read. I did review the CAT scan myself already. Patient doing very well at 1052. Pain is resolved. We went over her CAT scan results. Awaiting on the UA. History & Record Review Discussion w/independent historian: Patient and Family Additional record(s) reviewed:: Prior inpatient record, Prior outpatient record, Prior ED visit and Prior labs Lab Data Attestation: I reviewed the patient's lab results. Lab results narrative: CBC shows a white count of 10. H&H 12 and 38. Platelets 457. Electrolytes show a gap of 6. BUN of 13 creatinine 0.8. CAT scan shows 2 small stones of 2 and 3 mm. Dilated ureter. Appendix is normal. Read by the radiologist and reviewed by me. Liver enzymes are normal. test is negative. Urinalysis shows 250 occult blood and 10-25 red cells. No white cells. No nitrates or bacteria. No infection. Labs: Laboratory Results - last 24 hr 11/30/23 11/30/23 09:20 10:38 WBC 10.3 RBC 4.23 Hgb 12.6 Hct 38.4 MCV 90.8 MCH 29.8 MCHC 32.8 RDW Std Deviation 47.2 H RDW Coeff of Roger 14.3 Plt Count 457 H MPV 10.1 Immature Gran % (Auto) 0.600 Neut % (Auto) 73.9 H Lymph % (Auto) 18.9 L [place] % (Auto) 4.9 Eos % (Auto) 1.1 Baso % (Auto) 0.6 Absolute Neuts (auto) 7.6 Absolute Lymphs (auto) 1.95 Nucleated RBC % 0 Sodium 138 Potassium 3.8 Chloride 108 H Carbon Dioxide 24.0 Anion Gap 6 BUN 13 Creatinine 0.80 Estim Creat Clear Calc 105.21 Est GFR (MDRD) Af Amer 100 Est GFR (MDRD) Non-Af 83 BUN/Creatinine Ratio 16.1 Glucose 138 H Calcium 9.2 Total Bilirubin 0.40 AST 13 L ALT 27 Alkaline Phosphatase 59 Total Protein 7.8 Albumin 3.9 Globulin 3.9 Albumin/Globulin Ratio 1.0 Serum , Qual NEGATIVE Urine Color Yellow Urine Clarity Clear Urine pH 7.0 Ur Specific [place] 1.010 Urine Protein 15 H Urine Glucose (UA) Normal Urine Ketones Negative Urine Occult Blood 250 H Urine Nitrite Negative Urine Bilirubin Negative Urine Urobilinogen Normal Ur Leukocyte Esterase Negative Urine RBC 10-25 SEEN Urine WBC 0 SEEN Ur Squamous Epith Cells 0-5 SEEN Urine Bacteria 0 SEEN Urine Mucus 0 SEEN Radiography Diagnostic Testing: Clinical Impression(s) from Imaging Studies Abdomen/Pelvis CT 11/30/23 09:14 IMPRESSION: Right-sided hydronephrosis and hydroureter with perinephric and periureteral inflammatory stranding. Findings due to 2 separate small stones in the distal right ureter measuring 2 and 3 mm. 2 low-density hemangiomas in the right lobe of the liver larger measures 4 cm, smaller 1 cm Mildly enlarged uterus suggesting underlying fibroids Normal appendix visualized Electronically Signed: Jesus Alberto Dominguez MD at 10:39 EST Reading Location ID and State: [address] [place] [address] , Service support , Discharge Plan Triage Chief Complaint: Abd Pain ED Provider: Will Fox Dx/Rx/DC Orders Clinical Impression: Right sided abdominal pain, Kidney stone on right side Instructions: ED Kidney Stone with Pain Prescriptions: New oxycodone-acetaminophen [Percocet] 5-325 mg tablet 1 tab PO Q4H PRN (Reason: pain) 3 Days Qty: 12 0RF ondansetron 4 mg tablet,disintegrating 4 mg PO Q6H PRN (Reason: nausea and vomiting) Qty: 7 0RF No Action amoxicillin-pot clavulanate 875-125 mg tablet 1 tab PO BID Qty: 20 0RF Primary Care Provider: Lesa Us Referrals: Joesph Davenport MD [Med Staff - Active Staff] - Lesa Us NP-C [Primary Care Provider] - 3-5 Days if not improving Activity Restrictions/Additional Instructions: Plenty of fluids to help pass the stone. Motrin for pain. Percocet for more severe pain. Zofran as needed for nausea. You have 2 small stones and should pass or 2 and 3 mm. They typically do not get stuck to about 8 mm. Strain your urine for the stones. Follow-up with your primary care provider as needed. Zofran as needed for nausea. Do not drink or drive while using the Percocet. If you are using the Percocet has Tylenol in it do not use additional Tylenol. Disposition Disposition: Home, Self Care
[2023-11-30] MEDS: 0.9% Normal Saline (1000mL) 1,000 ML 1000 ML IV (09:21)
[2023-11-30] MEDS: morphine 8 MG/ML Syringe 6 MG IV ×2 (09:26→10:13)
[2023-11-30] MEDS: Ondansetron 4 MG/2 ML Vial IV ×2 (09:26→10:14)
[2023-11-30 09:34] LABS: Absolute Lymphocyte Count 1.95 X10^3/uL (0.83-4.51); Absolute Neutrophil Count 7.6 X10^3/uL (2.0-7.7); Basophil# 0.06 X10^3/uL; Basophil% 0.6 % (0-1); Eosinophil# 0.11 X10^3/uL; Eosinophils% 1.1 % (0-5); Hematocrit 38.4 % (37-47); Hemoglobin 12.6 g/dL (12.0-15.0); Lymphocyte # 1.95 X10^3/ul (0.83-4.51); Lymphocyte % 18.9 % (19-41); Mean Corp Hgb Conc 32.8 g/dL (32-36); Mean Corpuscular Hgb 29.8 pg (27.0-32.0); Mean Corpuscular Volume 90.8 fL (81-99); Mean Platelet Vol. 10.1 fl (6.2-12.0); Monocyte# 0.51 X10^3/uL; Monocyte% 4.9 % (0-10); NRBC Flagged by Analyzer 0 % (0-5); Neutrophil # 7.62 X10^3/uL (2.7-7.7); Neutrophil % 73.9 % (47-70); Platelet Count 457 K/mm3 (150-450); RBC Distribution Width CV 14.3 % (11.6-14.6); RBC Distribution Width SD 47.2 fl (35.1-43.9); Red Blood Count 4.23 M/mm3 (4.2-5.4); White Blood Count 10.3 K/mm3 (4.4-11.0)
[2023-11-30 09:35] LABS: Internal QC Validated? YES +Cl - CLEAR BKGD; Pregnancy, Serum, hCG Quali. NEGATIVE Negative; Record Kit Lot#, Serum Preg. 718086
[2023-11-30 09:43] LABS: AST(SGOT) 13 U/L (15-37); Alanine Aminotransfer ALT/SGPT 27 U/L (13-56); Albumin, Serum 3.9 g/dL (3.2-5.0); Alkaline Phosphatase 59 U/L (45-117); Anion Gap 6 (5-15); BUN 13 mg/dL (7-18); BUN/Creat Ratio 16.1 RATIO (10-20); Calcium,Total 9.2 mg/dL (8.5-10.1); Chloride 108 mmol/L (98-107); EST Glomerular Filtration Rate 83 mL/min (>60); Est Glom Filt Rate - Afr Amer 100 mL/min (>60); Estimated Creatinine Clearance 105.21 ml/min; Globulin 3.9 g/dL (2.2-4.2); Glucose 138 mg/dL (74-106); Potassium 3.8 mmol/L (3.5-5.1); Protein, Total 7.8 g/dL (6.4-8.2); Sodium Level 138 mmol/L (136-145)
[2023-11-30 10:15] VITALS: BP 151/82; PULSE 61; RESP 12; TEMP 37.1; O2SAT 97
[2023-11-30 10:45] LABS: Bacteria 0 SEEN /hpf (None Seen); Mucous, Urine 0 SEEN /hpf (<or=2+); White Blood Cells 0 SEEN /hpf (0-5)
[2023-11-30 10:48] LABS: Color, Urine Yellow (Yellow); Glucose, Dipstick Normal (Normal); Ketone-Dipstick Negative (Negative); Leukocyte Esterase-Dipstick Negative /ul (Negative); Nitrite-Dipstick Negative (Negative); Occult Blood-Urine 250 /ul (Negative); Protein-Dipstick 15 mg/dl (Negative); Urine Bilirubin Dipstick Negative (Negative); Urine Clarity Clear (Clear); Urine Urobilinogen Normal (Normal)
[2023-11-30 10:57] LABS: Red Blood Cells-Urine 10-25 SEEN /hpf (0-5); Squamous Epithelial Cells - UA 0-5 SEEN /hpf (5-10)
[2023-11-30 11:07] VITALS: BP 149/87; PULSE 59; RESP 14; TEMP 36.4; O2SAT 97
== END 2023-11-30 11:08 | disposition home or self-care (01) ==
PROVIDERS: Emergency Provider Emergency Medicine; PCP Nurse Practitioner Family; Visit Provider Emergency Medicine
DX: N13.2 Hydronephrosis with renal and ureteral calculous obstruction (principal); I10 Essential (primary) hypertension; R11.2 Nausea with vomiting, unspecified; R10.31 Right lower quadrant pain
CPT/HCPCS: 74177; 80053; 81001; 84703; 85025; 96361; 96374; 96375; 96376; 99282; J7030; Q9967; A4216; J2405

== ENCOUNTER → 2024-02-29 | Outpatient (CLI) | payer OTHER, SELFPAY ==
[2024-02-29 17:50] LABS: Absolute Lymphocyte Count 2.47 X10^3/uL (0.83-4.51); Absolute Neutrophil Count 5.3 X10^3/uL (2.0-7.7); Basophil# 0.06 X10^3/uL; Basophil% 0.7 % (0-1); Eosinophil# 0.18 X10^3/uL; Eosinophils% 2.1 % (0-5); Hematocrit 40.1 % (37-47); Hemoglobin 12.6 g/dL (12.0-15.0); Lymphocyte # 2.47 X10^3/ul (0.83-4.51); Lymphocyte % 28.7 % (19-41); Mean Corp Hgb Conc 31.4 g/dL (32-36); Mean Corpuscular Hgb 29.4 pg (27.0-32.0); Mean Corpuscular Volume 93.7 fL (81-99); Mean Platelet Vol. 10.2 fl (6.2-12.0); Monocyte# 0.55 X10^3/uL; Monocyte% 6.4 % (0-10); NRBC Flagged by Analyzer 0 % (0-5); Neutrophil # 5.32 X10^3/uL (2.7-7.7); Neutrophil % 61.9 % (47-70); Platelet Count 408 K/mm3 (150-450); RBC Distribution Width CV 13.7 % (11.6-14.6); Red Blood Count 4.28 M/mm3 (4.2-5.4); White Blood Count 8.6 K/mm3 (4.4-11.0)
[2024-02-29 18:19] LABS: ALB/GLOB Ratio 0.9 RATIO (0.9-2.4); AST(SGOT) 21 U/L (15-37); Alanine Aminotransfer ALT/SGPT 35 U/L (13-56); Albumin, Serum 3.7 g/dL (3.2-5.0); Alkaline Phosphatase 60 U/L (45-117); Anion Gap 6 (5-15); BUN 13 mg/dL (7-18); Calcium,Total 9.6 mg/dL (8.5-10.1); Chloride 103 mmol/L (98-107); Creatinine, Serum 0.65 mg/dL (0.55-1.02); EST Glomerular Filtration Rate 105 mL/min (>60); Est Glom Filt Rate - Afr Amer 127 mL/min (>60); Globulin 4.2 g/dL (2.2-4.2); Glucose 88 mg/dL (74-106); Potassium 4.6 mmol/L (3.5-5.1); Protein, Total 7.9 g/dL (6.4-8.2); Sodium Level 136 mmol/L (136-145)
== END | disposition home or self-care (01) ==
LOC: MTLAB 16:14
PROVIDERS: PCP Nurse Practitioner Family; Referring Provider Internal Medicine Rheumatology; Visit Provider Internal Medicine Rheumatology
DX: L40.59 Other psoriatic arthropathy (principal); Z79.899 Other long term (current) drug therapy
CPT/HCPCS: 36415; 80053; 85025

== ENCOUNTER → 2024-05-22 | Outpatient (CLI) | payer OTHER, SELFPAY ==
[2024-05-22 09:59] LABS: Absolute Lymphocyte Count 2.33 X10^3/uL (0.83-4.51); Absolute Neutrophil Count 4.4 X10^3/uL (2.0-7.7); Basophil# 0.07 X10^3/uL; Basophil% 0.9 % (0-1); Eosinophil# 0.13 X10^3/uL; Eosinophils% 1.7 % (0-5); Hematocrit 39.6 % (37-47); Hemoglobin 12.7 g/dL (12.0-15.0); Lymphocyte # 2.33 X10^3/ul (0.83-4.51); Lymphocyte % 30.7 % (19-41); Mean Corp Hgb Conc 32.1 g/dL (32-36); Mean Corpuscular Hgb 29.8 pg (27.0-32.0); Mean Platelet Vol. 10.8 fl (6.2-12.0); Monocyte# 0.67 X10^3/uL; Monocyte% 8.8 % (0-10); NRBC Flagged by Analyzer 0 % (0-5); Neutrophil # 4.36 X10^3/uL (2.7-7.7); Neutrophil % 57.6 % (47-70); Platelet Count 357 K/mm3 (150-450); RBC Distribution Width CV 14.1 % (11.6-14.6); RBC Distribution Width SD 47.4 fl (35.1-43.9); Red Blood Count 4.26 M/mm3 (4.2-5.4); White Blood Count 7.6 K/mm3 (4.4-11.0)
[2024-05-22 11:47] LABS: ALB/GLOB Ratio 0.9 RATIO (0.9-2.4); AST(SGOT) 16 U/L (15-37); Alanine Aminotransfer ALT/SGPT 25 U/L (13-56); Albumin, Serum 3.9 g/dL (3.2-5.0); Alkaline Phosphatase 61 U/L (45-117); Anion Gap 8 (5-15); BUN 23 mg/dL (7-18); BUN/Creat Ratio 28.9 RATIO (10-20); Calcium,Total 9.6 mg/dL (8.5-10.1); Chloride 102 mmol/L (98-107); EST Glomerular Filtration Rate 83 mL/min (>60); Est Glom Filt Rate - Afr Amer 101 mL/min (>60); Globulin 4.2 g/dL (2.2-4.2); Glucose 93 mg/dL (74-106); Potassium 4.7 mmol/L (3.5-5.1); Protein, Total 8.1 g/dL (6.4-8.2); Sodium Level 135 mmol/L (136-145)
== END | disposition home or self-care (01) ==
PROVIDERS: PCP Family Medicine; Referring Provider Internal Medicine Rheumatology; Visit Provider Internal Medicine Rheumatology
DX: L40.59 Other psoriatic arthropathy (principal); Z79.899 Other long term (current) drug therapy
CPT/HCPCS: 36415; 80053; 85025

== ENCOUNTER → 2024-08-18 | Outpatient (CLI) | payer OTHER, SELFPAY ==
[2024-08-18 12:48] LABS: Absolute Lymphocyte Count 2.35 X10^3/uL (0.83-4.51); Absolute Neutrophil Count 4.3 X10^3/uL (2.0-7.7); Basophil# 0.05 X10^3/uL; Basophil% 0.7 % (0-1); Eosinophil# 0.14 X10^3/uL; Eosinophils% 1.9 % (0-5); Hematocrit 38.7 % (37-47); Hemoglobin 12.1 g/dL (12.0-15.0); Lymphocyte # 2.35 X10^3/ul (0.83-4.51); Lymphocyte % 31.6 % (19-41); Mean Corp Hgb Conc 31.3 g/dL (32-36); Mean Corpuscular Hgb 29.3 pg (27.0-32.0); Mean Corpuscular Volume 93.7 fL (81-99); Mean Platelet Vol. 11.8 fl (6.2-12.0); Monocyte# 0.56 X10^3/uL; Monocyte% 7.5 % (0-10); NRBC Flagged by Analyzer 0 % (0-5); Neutrophil # 4.32 X10^3/uL (2.7-7.7); Platelet Count 277 K/mm3 (150-450); RBC Distribution Width SD 47.6 fl (35.1-43.9); Red Blood Count 4.13 M/mm3 (4.2-5.4); White Blood Count 7.4 K/mm3 (4.4-11.0)
[2024-08-18 13:07] LABS: AST(SGOT) 17 U/L (15-37); Alanine Aminotransfer ALT/SGPT 27 U/L (13-56); Albumin, Serum 3.7 g/dL (3.2-5.0); Alkaline Phosphatase 54 U/L (45-117); Anion Gap 5 (5-15); BUN 12 mg/dL (7-18); BUN/Creat Ratio 19.4 RATIO (10-20); Calcium,Total 9.2 mg/dL (8.5-10.1); Chloride 104 mmol/L (98-107); Creatinine, Serum 0.62 mg/dL (0.55-1.02); EST Glomerular Filtration Rate 112 mL/min (>60); Est Glom Filt Rate - Afr Amer 135 mL/min (>60); Globulin 3.7 g/dL (2.2-4.2); Glucose 89 mg/dL (74-106); Potassium 4.3 mmol/L (3.5-5.1); Protein, Total 7.4 g/dL (6.4-8.2); Sodium Level 134 mmol/L (136-145)
== END | disposition home or self-care (01) ==
PROVIDERS: PCP Family Medicine; Referring Provider Internal Medicine Rheumatology; Visit Provider Internal Medicine Rheumatology
DX: L40.59 Other psoriatic arthropathy (principal); Z79.899 Other long term (current) drug therapy
CPT/HCPCS: 36415; 80053; 85025

== ENCOUNTER → 2024-11-08 | Outpatient (CLI) | payer OTHER, SELFPAY ==
[2024-11-08 09:22] LABS: Absolute Lymphocyte Count 2.15 X10^3/uL (0.83-4.51); Absolute Neutrophil Count 4.1 X10^3/uL (2.0-7.7); Basophil# 0.07 X10^3/uL; Eosinophil# 0.14 X10^3/uL; Hematocrit 39.1 % (37-47); Hemoglobin 12.4 g/dL (12.0-15.0); Lymphocyte # 2.15 X10^3/ul (0.83-4.51); Lymphocyte % 30.7 % (19-41); Mean Corp Hgb Conc 31.7 g/dL (32-36); Mean Corpuscular Hgb 29.2 pg (27.0-32.0); Mean Corpuscular Volume 92.2 fL (81-99); Mean Platelet Vol. 10.5 fl (6.2-12.0); Monocyte# 0.57 X10^3/uL; Monocyte% 8.1 % (0-10); NRBC Flagged by Analyzer 0 % (0-5); Neutrophil # 4.07 X10^3/uL (2.7-7.7); Neutrophil % 58.1 % (47-70); Platelet Count 379 K/mm3 (150-450); RBC Distribution Width CV 13.6 % (11.6-14.6); RBC Distribution Width SD 46.1 fl (35.1-43.9); Red Blood Count 4.24 M/mm3 (4.2-5.4)
[2024-11-08 09:56] LABS: ALB/GLOB Ratio 0.9 RATIO (0.9-2.4); AST(SGOT) 12 U/L (15-37); Alanine Aminotransfer ALT/SGPT 21 U/L (13-56); Albumin, Serum 3.7 g/dL (3.2-5.0); Alkaline Phosphatase 52 U/L (45-117); Anion Gap 4 (5-15); BUN 17 mg/dL (7-18); BUN/Creat Ratio 26.9 RATIO (10-20); Calcium,Total 9.2 mg/dL (8.5-10.1); Chloride 103 mmol/L (98-107); Creatinine, Serum 0.63 mg/dL (0.55-1.02); EST Glomerular Filtration Rate 109 mL/min (>60); Est Glom Filt Rate - Afr Amer 131 mL/min (>60); Globulin 3.9 g/dL (2.2-4.2); Glucose 85 mg/dL (74-106); Potassium 4.2 mmol/L (3.5-5.1); Protein, Total 7.6 g/dL (6.4-8.2); Sodium Level 135 mmol/L (136-145)
== END | disposition home or self-care (01) ==
LOC: LAB 08:44
PROVIDERS: PCP Family Medicine; Referring Provider Internal Medicine Rheumatology; Visit Provider Internal Medicine Rheumatology
DX: L40.59 Other psoriatic arthropathy (principal); Z79.899 Other long term (current) drug therapy
CPT/HCPCS: 36415; 80053; 85025

== ENCOUNTER → 2025-01-02 | Outpatient (CLI) | payer OTHER, SELFPAY ==
[2025-01-02 10:47] LABS: Absolute Lymphocyte Count 2.48 X10^3/uL (0.83-4.51); Absolute Neutrophil Count 5.2 X10^3/uL (2.0-7.7); Basophil# 0.07 X10^3/uL; Basophil% 0.8 % (0-1); Eosinophil# 0.16 X10^3/uL; Eosinophils% 1.9 % (0-5); Hematocrit 39.5 % (37-47); Hemoglobin 12.4 g/dL (12.0-15.0); Lymphocyte # 2.48 X10^3/ul (0.83-4.51); Lymphocyte % 28.9 % (19-41); Mean Corp Hgb Conc 31.4 g/dL (32-36); Mean Corpuscular Hgb 29.8 pg (27.0-32.0); Mean Platelet Vol. 11.1 fl (6.2-12.0); Monocyte# 0.69 X10^3/uL; NRBC Flagged by Analyzer 0 % (0-5); Neutrophil # 5.17 X10^3/uL (2.7-7.7); Neutrophil % 60.2 % (47-70); Platelet Count 387 K/mm3 (150-450); RBC Distribution Width CV 14.6 % (11.6-14.6); Red Blood Count 4.16 M/mm3 (4.2-5.4); White Blood Count 8.6 K/mm3 (4.4-11.0)
[2025-01-02 12:37] LABS: ALB/GLOB Ratio 1.4 RATIO (0.9-2.4); AST(SGOT) 19 U/L (<=31); Alanine Aminotransfer ALT/SGPT 20 U/L (<=34); Albumin, Serum 4.4 g/dL (3.5-5.0); Alkaline Phosphatase 56 U/L (35-104); Anion Gap 12 (5-15); BUN 14 mg/dL (4-19); BUN/Creat Ratio 20.5 RATIO (10-20); Calcium,Total 9.2 mg/dL (7.6-11.0); Carbon Dioxide 22.1 mmol/L (21.0-32.0); Chloride 104 mmol/L (98-108); EST Glomerular Filtration Rate 109 (>60); Globulin 3.2 g/dL (2.2-4.2); Glucose 77 mg/dL (70-99); Potassium 4.7 mmol/L (3.3-5.1); Protein, Total 7.6 g/dL (5.9-8.4); Sodium Level 139 mmol/L (133-145); Total Bilirubin 0.31 mg/dL (0.00-1.30)
== END | disposition home or self-care (01) ==
LOC: MTLAB 07:48
PROVIDERS: PCP Family Medicine; Referring Provider Internal Medicine Rheumatology; Visit Provider Internal Medicine Rheumatology
DX: L40.59 Other psoriatic arthropathy (principal); Z79.899 Other long term (current) drug therapy
CPT/HCPCS: 36415; 80053; 85025

== ENCOUNTER → 2025-01-12 | Outpatient (CLI) | payer OTHER, SELFPAY ==
[2025-01-12 11:41] LABS: Cholesterol 182 mg/dL (<=200); High Density Lipoprotein 53 mg/dL; Low Density Lipoprotein Calc. 113 mg/dL; Triglycerides 80 mg/dL; Very Low Density Lipoprotein 16 mg/dL (5-40); cholesterol:hdl ratio screen 3.44
== END | disposition home or self-care (01) ==
LOC: MTLAB 08:04
PROVIDERS: PCP Family Medicine; Referring Provider Family Medicine; Visit Provider Family Medicine
DX: Z00.00 Encounter for general adult medical examination without abnormal findings (principal); E55.9 Vitamin D deficiency, unspecified; I10 Essential (primary) hypertension; R53.83 Other fatigue
CPT/HCPCS: 36415; 80061; 82306; 84443

== ENCOUNTER → 2025-03-27 | Outpatient (CLI) | payer OTHER, SELFPAY ==
[2025-03-27 10:21] LABS: Absolute Lymphocyte Count 1.71 X10^3/uL (0.83-4.51); Absolute Neutrophil Count 4.4 X10^3/uL (2.0-7.7); Basophil# 0.05 X10^3/uL; Basophil% 0.7 % (0-1); Eosinophil# 0.12 X10^3/uL; Eosinophils% 1.7 % (0-5); Hematocrit 40.2 % (37-47); Hemoglobin 12.9 g/dL (12.0-15.0); Lymphocyte # 1.71 X10^3/ul (0.83-4.51); Lymphocyte % 24.7 % (19-41); Mean Corp Hgb Conc 32.1 g/dL (32-36); Mean Corpuscular Hgb 29.9 pg (27.0-32.0); Mean Corpuscular Volume 93.1 fL (81-99); Mean Platelet Vol. 10.6 fl (6.2-12.0); Monocyte# 0.58 X10^3/uL; Monocyte% 8.4 % (0-10); NRBC Flagged by Analyzer 0 % (0-5); Neutrophil # 4.43 X10^3/uL (2.7-7.7); Neutrophil % 64.2 % (47-70); Platelet Count 412 K/mm3 (150-450); RBC Distribution Width CV 13.6 % (11.6-14.6); Red Blood Count 4.32 M/mm3 (4.2-5.4); White Blood Count 6.9 K/mm3 (4.4-11.0)
[2025-03-27 13:11] LABS: ALB/GLOB Ratio 1.4 RATIO (0.9-2.4); AST(SGOT) 23 U/L (<=31); Alanine Aminotransfer ALT/SGPT 25 U/L (<=34); Albumin, Serum 4.6 g/dL (3.5-5.0); Alkaline Phosphatase 61 U/L (35-104); Anion Gap 12 (5-15); BUN 15 mg/dL (4-19); BUN/Creat Ratio 21.7 RATIO (10-20); Calcium,Total 9.5 mg/dL (7.6-11.0); Carbon Dioxide 23.8 mmol/L (21.0-32.0); Chloride 100 mmol/L (98-108); EST Glomerular Filtration Rate 109 (>60); Globulin 3.2 g/dL (2.2-4.2); Glucose 85 mg/dL (70-99); Potassium 4.4 mmol/L (3.3-5.1); Protein, Total 7.8 g/dL (5.9-8.4); Sodium Level 136 mmol/L (133-145); Total Bilirubin 0.61 mg/dL (0.00-1.30)
== END | disposition home or self-care (01) ==
PROVIDERS: PCP Family Medicine; Referring Provider Internal Medicine Rheumatology; Visit Provider Internal Medicine Rheumatology
DX: L40.59 Other psoriatic arthropathy (principal); Z79.899 Other long term (current) drug therapy
CPT/HCPCS: 36415; 80053; 85025

== ENCOUNTER → 2025-06-20 | Outpatient (CLI) | payer OTHER, SELFPAY ==
--- OUTSIDE RECORDS SUMMARY | 2025-06-20 09:31 | XMS RPT_ITS | CCD ---
Author Organization [facility] Care Team Providers Care Cover Cutter Name Role Phone Ariana Ceballos Unavailable Papo Vanegas Unavailable Carmen Velazquez Unavailable Unavailable Clarita Valerio Unavailable Unavailable Unavailable Unavailable Ariana Ceballos DO Primary Care Provider Ariana Ceballos DO Primary Care Provider Ariana Ceballos DO Primary Care Provider RAMONA Us-C Lesa Primary Care Provider RAMONA Us-C Lesa Referring Provider [place] [facility], ANTHROPOLOGY DEPARTMENT CHAIR-C Brenda Ling Attending Provider Ariana Ceballos DO Primary Care Provider JUANITO VICTOR Referring Unavailable YA SANTILLAN Primary Care Unavailabl e Adrián Mullen DO Unavailable Ya Santillan MD Primary Care Provider ARIANA CEBALLOS Primary Care Unavailab EUSEBIA Dejesus Referring Unavailable MERON BROOKS Attending Unavailable ARIANA CEBALLOS Primary Care Unavailab ARIANA Blount Primary Care Unavailab RIVERA Bhandari Attending Unavailable ARIANA CEBALLOS Primary Care Unavailab [place] Dejesus Attending Unavailable Dr. Ya Santillan MD Primary Care Provider [phone] Markos MURPHY, Dr. Muñoz Attending Provider Dr. Wanda Burrows MD Referring Provider Tyrell MURPHY, Dr. Pandya Attending Provider Tyrell MURPHY, Dr. Pandya Referring Provider Tyrell MURPHY, Dr. Pandya Primary Care Provider Markos MURPHY, Dr. Muñoz Attending Provider Markos MURPHY, Dr. Muñoz Referring Provider Tyrell, Ya Referring Unavailable Miedel, Ya Attending Unavailable Mied, [place] Primary Care Unavailable Vellanki, Wanda Referring Unavailable Miedel, [place] Primary Care Unavailable Vellanki, Wanda Attending Unavailable Vellanki, Wanda Referring Unavailable Miedel, [place] Primary Care Unavailable Vellanki, Wanda Attending Unavailable Vellanki, Wanda Attending Unavailable Miedel, [place] Primary Care Unavailable Vellanki, Wanda Referring Unavailable Vellanki, Wanda Attending Unavailable [facility], [place] Primary Care Unavailable Vellanki, Wanda Referring Unavailable Vellanki, Wanda Referring Unavailable Miedel, [place] Primary Care Unavailable Vellanki, Wanda Attending Unavailable Allergies Allergy Classification Reported Allergen(s) Allergy Type Date of Onset Reaction(s) Facility (1 source) ALLERGIES NOT ON FILE; Translations: [ALLERGIES NOT ON FILE] Propensity to adverse reactions (disorder) [facility] 2 Repository Medications Current Medications Medication Drug Class(es) Dates Sig (Normalized) Sig (Original) acetaminophen 325 mg / oxyCODONE hydrochloride 5 mg oral tablet (4 sources) Opioid Agonist Start: 11-30-2023 take 1 tablet by mouth every four hours as needed for pain Oxycodone-Acetami nophen (Percocet) 5-325 mg tablet Active 1 {tbl} PO Q4H as needed for pain 12 3 0 November 30, 2023 Calculus of right kidney Calculus of kidney amoxicillin 875 mg / clavulanate 125 mg oral tablet (10 sources) Penicillin-class Antibacterial Start: 09-16-2021 Amoxicillin-Pot Clavulanate 875-125 mg tablet Active 1 {tbl} PO TWICE A DAY September 16, 2021 1:00am Start: 09-16-2021 take 1 tablet by regan twice daily Amoxicillin-Pot Clavulanate Active 1 TABLET PO TWICE A DAY September 16, 2021 12:00am Start: 11-27-2014 End: 02-01-2015 take 1 tablet by mouth twice daily AUGMENTIN, 875-125MG (Oral Tablet) 1 Tablet bid for 0 days Quantity: 20 {Tablet} Refills: 0 Ordered: 01-Feb-2015 Clarita Valerio LPN Start : 27-Nov-2014 End : 01-Feb-2015 Discontinued clobetasol propionate 0.5 mg/ml topical solution (12 sources) Corticosteroid Start: 04-24-2018 Clobetasol Propionate (TEMOVATE) 0.05 % external solution PRN 04/24/2018 Active Comment on above: PRN lisinopril 20 mg oral tablet (3 sources) Angiotensin Converting Enzyme Inhibitor Start: 08-22-2024 take 1 tablet by mouth once daily in the morning lisinopril (ZESTRIL) 20 mg tablet Take 20 mg by mouth every morning. 08/22/2024 Active methotrexate 2.5 mg oral tablet (8 sources) Folate Analog Metabolic Inhibitor Start: 10-28-2023 methotrexate 2.5 mg tablet 10/28/2023 Active ondansetron 4 mg disintegrating oral tablet (4 sources) Serotonin-3 Receptor Antagonist Start: 11-30-2023 take 1 tablet by mouth every six hours as needed for nausea and vomiting Ondansetron 4 mg tablet,disintegra ting Active 4 mg PO EVERY 6 HOURS as needed for nausea and vomiting 7 November 30, 2023 1:00am Completed/Discontinued Medications Medication Drug Class(es) Dates Sig (Normalized) Sig (Original) apremilast 30 mg oral tablet (2 sources) Start: 08-22-2016 End: 09-21-2016 take 1 tablet by mouth once daily Otezla 30 MG Oral Tablet 1 (one) Tablet daily for 30 days Quantity: 30 {Tablet} Refills: 0 Ordered: 22-Aug-2016 Ariana Ceballos DO, DO, Kathleen Start : 22-Aug-2016 End : 21-Sep-2016 Inactive End: 04-04-2022 take 1 tablet by mouth twice daily apremilast (OTEZLA) 30 mg tablet Take 30 mg by mouth twice daily. 0 04/04/2022 Discontinued (Course of therapy completed) Comment on above: Take 30 mg by mouth twice daily. azithromycin 250 mg oral tablet (1 source) Macrolide Antimicrobial Start: End: Zithromax Z-Romulo 250 MG Oral Tablet 1 (one) Tablet TAD for 0 days Quantity: 1 {Package} Refills: 0 Ordered: 22-Aug-2016 Carmen Velazquez LPN Start : 17-Aug-2015 End : 22-Aug-2016 Inactive benzonatate 100 mg oral capsule (1 source) Non-narcotic Antitussive Start: End: take 1 capsule by mouth three times daily as needed for cough TESSALON PERLES, 100MG (Oral Capsule) 1 (one) Capsule tid prn for cough for 30 days Quantity: 30 {Capsule} Refills: 0 Ordered: 17-Aug-2015 Brie Alvarenga CNP Start : 17-Aug-2015 End : 16-Sep-2015 Inactive cetirizine hydrochloride 10 mg oral tablet (1 source) Histamine-1 Receptor Antagonist Start: End: take 1 tablet by mouth once daily ZyrTEC Allergy 10 MG Oral Tablet 1 (one) Tablet daily for 0 days Quantity: 30 {Tablet} Refills: 0 Ordered: 22-Aug-2016 Carmen Velazquez LPN Start : 17-Aug-2015 End : 22-Aug-2016 Inactive furosemide 20 mg oral tablet (1 source) Loop Diuretic Start: End: take 1 tablet by mouth once daily in the morning Lasix 20 MG Oral Tablet 1 (one) Tablet qam for 0 days Quantity: 2 {Tablet} Refills: 0 Ordered: 02-Sep-2018 Anita Trejo LPN Start : 04-May-2017 End : 02-Sep-2018 Inactive gadoterate meglumine (Dotarem) 0.5 mmol/mL contrast injection 20 mL (1 source) Start: End: inject 20 mL intravenously once 20 mL, intravenous, Once in imaging, Starting on Sun03/31/24 at 1833, For 1 dose, Administer undiluted as rapid I.V. bolus injection naproxen sodium 220 mg oral capsule (1 source) Nonsteroidal Anti-inflammatory Drug Start: End: 10-21-2 015 take 1 capsule by mouth every six hours ALEVE, 220MG (Oral Capsule) 1 (one) Capsule q6hrs for 0 days Quantity: 30 {Capsule} Refills: 0 Ordered: 21-Jul-2015 Carmen Velazquez LPN Start : 01-Feb-2015 End : 21-Jul-2015 Inactive selenium sulfide 25 mg/ml medicated shampoo (1 source) Start: End: SELENIUM SULFIDE, 2.5% (External Lotion) 1 (one) Lotion Lotion apply to affected area and leave on 15 mins then rinse for 0 days Quantity: 1 {Bottle} Refills: 0 Ordered: 01-Feb-2015 Clarita Valerio LPN Start : 09-Nov-2014 End : 01-Feb-2015 Discontinued triamcinolone acetonide 0.055 mg/actuat metered dose nasal spray (1 source) Corticosteroid Start: End: NASACORT AQ, 55MCG/ACT (Nasal Aerosol) 2 (two) Puff daily for 0 days Quantity: 1 {Bottle} Refills: 0 Ordered: 21-Jul-2015 Carmen Velazquez LPN Start : 01-Feb-2015 End : 21-Jul-2015 Discontinued Comments: This order discontinued per [facility]. Comment on above: This order discontin ued per [employer]. NEGATED: Highlighted row has not occurred!drug or medication (1 source) No Known Historical Medications Problems Active Problems Problem Classification Problem Date Documented Date Episodic/Chronic Abdominal pain (4 sources) Right sided abdominal pain; Translations: [Unspecified abdominal pain] 11-30-2023 Episodic Administrative/social admission (1 source) Medical examinations/reports status; Translations: [Well female exam with routine gynecological exam] 08-17-2015 Episodic Anxiety disorders (2 sources) Anxiety; Translations: [Anxiety] Resolved: 08-22-2016 08-22-2016 Chronic Calculus of urinary tract (4 sources) Kidney stone; Translations: [Calculus of kidney] 11-30-2023 Episodic Coronary atherosclerosis and other heart disease (6 sources) Coronary atherosclerosis and other heart disease Fever of unknown origin (3 sources) Fever; Translations: [Fever] Resolved: 07-21-2015 07-21-2015 Episodic Headache; including migraine (9 sources) Migraine; Translations: [Migraine, unspecified, not intractable, without status migrainosus] 11-06-2019 Chronic Immunizations and screening for infectious disease (3 sources) Need for prophylactic vaccination and inoculation against influenza; Translations: [Patient encounter status] Episodic Influenza (9 sources) Influenza due to Influenza A virus; Translations: [Influenza due to other identified influenza virus with other respiratory manifestations] 09-09-2023 Episodic Lymphadenitis (3 sources) Lymphadenopathy; Translations: [Lymphadenopathy] Resolved: 08-22-2016 08-22-2016 Episodic Malaise and fatigue (2 sources) Fatigue; Translations: [FATIGUE] Resolved: 08-22-2016 08-22-2016 Episodic Nonmalignant breast conditions (3 sources) Breast finding ; Translations: [Dense breast tissue] 12-11-2024 Episodic Nutritional deficiencies (1 source) Vitamin D [...] [Tendonitis of elbow, left] 05-04-2017 Episodic Other ear and sense organ disorders (6 sources) Sensorineural hearing loss, unilateral, right ear, with unrestricted hearing on the contralateral side; Translations: [Sensorineural hearing loss, unilateral] Onset: 02-28-2024 02-28-2024 Chronic Other ear and sense organ disorders (1 source) Bilateral hearing loss; Translations: [Sensorineural hearing loss, unilateral, right ear, with restricted hearing on the contralateral side] 04-15-2024 Chronic Other female genital disorders (1 source) Vaginal dryness; Translations: [Other specified noninflammatory disorders of vagina] Episodic Other inflammatory condition of skin (12 sources) Psoriasis; Translations: [Psoriasis, unspecified] 05-04-2017 Chronic Other inflammatory condition of skin (9 sources) Psoriatic arthritis; Translations: [Arthropathic psoriasis, unspecified] 11-06-2019 Chronic Other inflammatory condition of skin (1 source) Other psoriatic arthropathy; Translations: [Other psoriatic arthropathy] Onset: 04-01-2025 Chronic Other inflammatory condition of skin (3 sources) Seborrhea capitis; Translations: [Seborrheic dermatitis of scalp] Resolved: 08-22-2016 08-22-2016 Episodic Other inflammatory condition of skin (3 sources) Seborrheic dermatitis; Translations: [Seborrheic dermatitis] Resolved: 08-22-2016 08-22-2016 Episodic Other lower respiratory disease (2 sources) Cough; Translations: [Cough] Resolved: 08-22-2016 08-22-2016 Episodic Other nervous system disorders (2 sources) Disorders of other specified cranial nerves; Translations: [Disorders of other specified cranial nerves] Onset: 03-31-2024 Episodic Other nutritional; endocrine; and metabolic disorders (14 sources) Body mass index 30+ - obesity; [...] past delivery; Translations: [Vaginal Delivery] 05-04-2017 Episodic Comment on above: Other screening for suspected conditions (not mental disorders or infectious disease) (11 sources) Breast neoplasm screening status; Translations: [Cancer cervix screening status] Onset: 12-18-2024 05-04-2017 Episodic Other skin disorders (1 source) Eruption; Translations: [Rash of face] 05-04-2017 Episodic Comment on above: get second opinion m elasma? Other skin disorders (1 source) Swelling of hand; Translations: [Swelling of left hand] 05-04-2017 Episodic Other skin disorders (1 source) Hirsutism; Translations: [Hirsutism] Episodic Other upper respiratory disease (1 source) Allergic rhinitis; Translations: [Allergic rhinosinusitis] 05-04-2017 Chronic Comment on above: claritin as needed Other upper respiratory infections (11 sources) Acute sinusitis; Translations: [Streptococcal sore throat] Resolved: 07-21-2015 05-04-2017 Episodic Otitis media and related conditions (11 sources) Eustachian tube disorder; Translations: [Acute right otitis media] 05-04-2017 Episodic Residual codes; unclassified (1 source) Needs influenza immunization; Translations: [Need for prophylactic vaccination and inoculation against influenza] 05-04-2017 Episodic Unclassified (14 sources) Unclassified (2 sources) Influenza vaccination declined; Translations: [Influenza vaccination declined (Renamed from Refused influenza vaccine)] 05-04-2017 Unclassified (3 sources) Non-smoker; Translations: [Non-smoker] 05-04-2017 Unclassified (2 sources) Allergic rhinosinusitis Unclassified (1 source) BMI 34.0-34.9,adult Unclassified (1 source) Rash of face Unclassified (1 source) Dense breast tissue; Translations: [Dense breast tissue] Onset: 12-18-2024 Past or Other Problems Problem Classification Problem Date Documented Date Episodic/Chronic Other and unspecified benign neoplasm (12 sources) Fibroadenoma of breast; Translations: [Benign neoplasm of unspecified breast] Onset: 09-09-2015 09-09-2015 Episodic Other ear and sense organ disorders (1 source) Otalgia; Translations: [Ear ache] Resolved: 07-21-2015 07-21-2015 Episodic Other nervous system disorders (1 source) Cranial nerve disorder; Translations: [Disorders of other specified cranial nerves] 03-31-2024 Episodic Other skin disorders (1 source) Skin tag; Translations: [Skin tag] Resolved: 07-21-2015 08-18-2015 Episodic Unclassified (1 source) BMI 33.0-33.9,adult Unclassified (1 source) Abortions/Miscarriage s; Translations: [Abortions/Miscarriag es] 05-04-2017 Comment on above: 1. Spontaneous abort ion. Unclassified (2 sources) SCREENING FOR HUMAN PAPILLOMAVIRUS (HPV) (V73.81) Unclassified (7 sources) Patient encounter status; Translations: [Encounter for gynecological examination without abnormal finding] 05-04-2017 Unclassified (1 source) Pregnancies (); Translations: [Pregnancies ()] 05-04-2017 Comment on above: 3. Unclassified (1 source) Strep pharyngitis Unclassified (1 source) Screening status; Translations: [Screening for hyperlipidemia] 05-04-2017 Unclassified (2 sources) Well Female (Younger Female) (V72.31) Unclassified (1 source) Ear ache Unclassified (1 source) [place] teeth 05-04-2017 Comment on above: age 17 Unclassified (1 source) Encounter for screening mammogram for breast cancer (Renamed from Encounter for screening mammogram for malignant neoplasm of breast) Unclassified (1 source) Skin Tag, Irritated (701.9) Unclassified (1 source) SINUSITIS, ACUTE NOS (461.9) Unclassified (1 source) Weight Gain (783.1) Unclassified (1 source) Left hand pain Unclassified (1 source) Swelling of left hand Unclassified (1 source) Tendonitis of elbow, left Unclassified (1 source) Arm somatic dysfunction Unclassified (3 sources) Breast finding 12-11-2024 Results Test Name Value Interpretation Reference Range Facility Absolute lymphocyte countOrd ered By: Wandanadine Burrows on 03-27-2025 Lymphocytes Auto (Unsp spec) [#/Vol] 1.71 10*3/uL 0.83-4.51 [facility] Absolute neutrophil countOrd ered By: Wandanadine Burrows on 03-27-2025 Neutrophils (Bld) [#/Vol] 4.4 10*3/uL 2.0-7.7 [facility] Anion gap in Serum or Plasma Ordered By: Wanda Burrows on 03-27-2025 Anion gap [Moles/Vol] 12 mmol/L 5-15 [facility] Automated lymphocyte count a s percentage of total leukocytesOrdered By: Wandanadine Burrows on 03-27-2025 Lymphocytes/100 WBC Auto (Unsp spec) 24.7 % 19-41 [facility] BUN/creatinine ratioOrdered By: [facility] Markos on 03-27-2025 Urea nitrogen/Creatinine [Mass ratio] 21.7 mg/mg High 10-20 [facility] Basophil percentageOrdered B y: Wanda Burrows on 03-27-2025 Basophils/100 WBC (Bld) 0.7 % 0-1 [facility] Bilirubin, totalOrdered By: Wandanadine Burrows on 03-27-2025 Bilirubin [Mass/Vol] 0.61 mg/dL 0.00-1.30 [facility] CBC W/Diff, Automatedon 03-02 Absolute Lymph 1.71 X10 3/uL Normal 0.83-4.51 [facility] Comment on above: Performed By: #### L [id number], L100.0100 #### [facility] [address] [place], [address] Absolute Neut 4.4 X10 3/uL Normal 2.0-7.7 [facility] Comment on above: Performed By: #### L [id number], L100.0100 #### [facility] [address] [place], [address] Basophils/100 WBC (Bld) 0.7 % Normal 0-1 [facility] Comment on above: Performed By: #### L [id number], L100.0100 #### [facility] [address] [place], [address] Eosinophils/100 WBC (Bld) 1.7 % Normal 0-5 [facility] Comment on above: Performed By: #### L [id number], L100.0100 #### [facility] [address] [place], [address] Erythrocyte distribution width (RBC) [Ratio] 13.6 % Normal 11.6-14.6 [facility] Comment on above: Performed By: #### L [id number], L100.0100 #### [facility] [address] [place], [address] Hematocrit (Bld) [Volume fraction] 40.2 % Normal 37-47 [facility] Comment on above: Performed By: #### L [id number], L100.0100 #### [facility] [address] [place], [address] Hemoglobin (Bld) [Mass/Vol] 12.9 g/dL Normal 12.0-15.0 [facility] Comment on above: Performed By: #### L [id number], L100.0100 #### [facility] [address] [place], [address] IG% 0.300 Normal 0.0-0.9 [facility] Comment on above: Result Comment: IG% - Immature Granulocytes (promyelocytes, myelocytes and metamyelocytes) > 1% indicates that a LEFT SHIFT is Present. Performed By: #### L [id number], L100.0100 #### [facility] [address] [place], [address] Lymphocytes/100 WBC (Bld) 24.7 % Normal 19-41 [facility] Comment on above: Performed By: #### L [id number], L100.0100 #### [facility] [address] [place], [address] MCH (RBC) [Entitic mass] 29.9 pg Normal 27.0-32.0 [facility] Comment on above: Performed By: #### L [id number], L100.0100 #### [facility] [address] [place], [address] MCHC (RBC) [Mass/Vol] 32.1 g/dL Normal 32-36 [facility] Comment on above: Performed By: #### L [id number], L100.0100 #### [facility] [address] [place], [address] MCV (RBC) [Entitic vol] 93.1 fL Normal 81-99 [facility] Comment on above: Performed By: #### L [id number], L100.0100 #### [facility] [address] [place], [address] Monocytes/100 WBC (Bld) 8.4 % Normal 0-10 [facility] Comment on above: Performed By: #### L [id number], L100.0100 #### [facility] [address] [place], [address] Neutrophils/100 WBC (Bld) 64.2 % Normal 47-70 [facility] Comment on above: Performed By: #### L [id number], L100.0100 #### [facility] [address] [place], [address] Nucleated RBC (Bld) [#/Vol] 0 10*3/uL Normal 0-5 [facility] Comment on above: Performed By: #### L [id number], L100.0100 #### [facility] [address] [place], [address] Platelet mean volume (Bld) [Entitic vol] 10.6 fL Normal 6.2-12.0 [facility] Comment on above: Performed By: #### L [id number], L100.0100 #### [facility] [address] [place], [address] Platelets (Bld) [#/Vol] 412 10*3/uL Normal 150-450 [facility] Comment on above: Performed By: #### L [id number], L100.0100 #### [facility] [address] [place], [address] RBC (Bld) [#/Vol] 4.32 10*6/uL Normal 4.2-5.4 [facility] Comment on above: Performed By: #### L [id number], L100.0100 #### [facility] [address] [place], [address] RDW SD 47.0 fl High 35.1-43.9 [facility] Comment on above: Performed By: #### L [id number], L100.0100 #### [facility] [address] [place], [address] WBC (Bld) [#/Vol] 6.9 10*3/uL Normal 4.4-11.0 [facility] Comment on above: Performed By: #### L [id number], L100.0100 #### [facility] [address], [address] Carbon dioxide, total [Moles /volume] in Central venous bloodOrdered By: Wanda Burrows on 03-27-2025 CO2 [Moles/Vol] 23.8 mmol/L 21.0-32.0 [facility] Chloride assayOrdered By: Gregorio Burrows on 03-27-2025 Chloride [Moles/Vol] 100 mmol/L 98-108 [facility] Comprehensive Metabolic Prof ilon 03-27-2025 Albumin [Mass/Vol] 4.6 g/dL Normal 3.5-5.0 [facility] Comment on above: Performed By: #### L 500.4050, L100.0100 #### [facility] [address] [place], [address] Albumin/Globulin [Mass ratio] 1.4 {ratio} Normal 0.9-2.4 [facility] Comment on above: Performed By: #### L [id number], L100.0100 #### [facility] [address] [place], [address] ALK PHOS 61 U/L Normal 35-104 [facility] Comment on above: Performed By: #### L [id number], L100.0100 #### [facility] [address] [place], [address] ALT [Catalytic activity/Vol] 25 U/L Normal <=34 [facility] Comment on above: Performed By: #### L [id number], L100.0100 #### [facility] [address] [place], [address] AST [Catalytic activity/Vol] 23 U/L Normal <=31 [facility] Comment on above: Performed By: #### L 500.4050, L100.0100 #### [facility] [address] [place], [address] Bilirubin [Mass/Vol] 0.61 mg/dL Normal 0.00-1.30 [facility] Comment on above: Performed By: #### L [id number], L100.0100 #### [facility] [address] [place], [address] BUN/CRE 21.7 RATIO High 10-20 [facility] Comment on above: Performed By: #### L [id number], L100.0100 #### [facility] [address] [place], [address] Calcium [Mass/Vol] 9.5 mg/dL Normal 7.6-11.0 [facility] Comment on above: Performed By: #### L [id number], L100.0100 #### [facility] [address] [place], [address] Chloride [Moles/Vol] 100 mmol/L Normal 98-108 [facility] Comment on above: Performed By: #### L [id number], L100.0100 #### [facility] [address] [place], [address] CO2 [Moles/Vol] 23.8 mmol/L Normal 21.0-32.0 [facility] Comment on above: Performed By: #### L 500.4050, L100.0100 #### [facility] [address] [place], [address] Creatinine [Mass/Vol] 0.70 mg/dL Normal 0.70-1.20 [facility] Comment on above: Performed By: #### L [id number], L100.0100 #### [facility] [address] [place], [address] GAP 12 Normal 5-15 [facility] Comment on above: Performed By: #### L [id number], L100.0100 #### [facility] [address] [place], [address] GFR/1.73 sq M.predicted among non-blacks MDRD (S/P/Bld) [Vol rate/Area] 109 mL/min/{1.73_m2} Normal >60 [facility] Comment on above: Result Comment: mL/m in/1.73m2 CKD-EPI Creatinine Equation (2020) Performed By: #### L 500.4050, L100.0100 #### [facility] [address] [place], [address] Globulin (S) [Mass/Vol] 3.2 g/dL Normal 2.2-4.2 [facility] Comment on above: Performed By: #### L 500.4050, L100.0100 #### [facility] [address] [place], [address] Glucose [Mass/Vol] 85 mg/dL Normal 70-99 [facility] Comment on above: Performed By: #### L [id number], L100.0100 #### [facility] [address] [place], [address] Potassium [Moles/Vol] 4.4 mmol/L Normal 3.3-5.1 [facility] Comment on above: Performed By: #### L [id number], L100.0100 #### [facility] [address] [place], [address] Sodium [Moles/Vol] 136 mmol/L Normal 133-145 [facility] Comment on above: Performed By: #### L [id number], L100.0100 #### [facility] [address] [place], [address] T PROT 7.8 g/dL Normal 5.9-8.4 [facility] Comment on above: Performed By: #### L [id number], L100.0100 #### [facility] [address] [place], [place], [address] Urea nitrogen [Mass/Vol] 15 mg/dL Normal 4-19 [facility] Comment on above: Performed By: #### L 500.4050, L100.0100 #### [facility] [address] [place], [place], [id number] Eosinophil percentageOrdered By: Wanda Burrows on 03-27-2025 Eosinophils/100 WBC (Bld) 1.7 % 0-5 [facility] Erythrocyte distribution wid th ratioOrdered By: Wanda Burrows on 03-27-2025 Erythrocyte distribution width (RBC) [Ratio] 13.6 % 11.6-14.6 [facility] Erythrocyte distribution wid th standard deviationOrdered By: Wandanadine Burrows on 03-27-2025 Erythrocyte distribution width (RBC) [Ratio] 47.0 fl High 35.1-43.9 [facility] Glomerular filtration rate ( GFR) estimation/1.73 sq m using serum, plasma, or whole bOrdered By: Wanda Burrows on 03-27-2025 GFR/1.73 sq M.predicted among non-blacks MDRD (S/P/Bld) [Vol rate/Area] 109 mL/min/{1.73_m2} >60 [facility] Comment on above: mL/min/1.73m2 CKD-EP I Creatinine Equation (2020) Hematocrit Auto (Bld) [Volum e fraction]Ordered By: Wanda Burrows on 03-27-2025 Hematocrit (Bld) [Volume fraction] 40.2 % 37-47 [facility] Hemoglobin measurementOrdere d By: Wanda Burrows on 03-27-2025 Hemoglobin (Bld) [Mass/Vol] 12.9 g/dL 12.0-15.0 [facility] Immature granulocytes/100 WB C Auto (Bld)Ordered By: Wanda Burrows on 03-27-2025 Immature granulocytes/100 WBC (Bld) 0.300 % 0.0-0.9 [facility] Comment on above: IG% - Immature Granu locytes (promyelocytes, myelocytes and metamyelocytes) > 1% indicates that a LEFT SHIFT is Present. Laboratory - Chemistry and C hemistry - challengeOrdered By: Wanda Burrows on 03-27-2025 AST [Catalytic activity/Vol] 23 U/L <32 [facility] MCV (mean corpuscular volume ) determinationOrdered By: Wanda Burrows on 03-27-2025 MCV (RBC) [Entitic vol] 93.1 fL 81-99 [facility] Mean corpuscular hemoglobin (MCH) determinationOrdered By: Wanda Burrows on 03-27-2025 MCH (RBC) [Entitic mass] 29.9 pg 27.0-32.0 [facility] Mean corpuscular hemoglobin concentration (MCHC) determinationOrdered By: Wanda Burrows on 03-27-2025 MCHC (RBC) [Mass/Vol] 32.1 g/dL 32-36 [facility] Mean platelet volume determi nationOrdered By: Wanda Burrows on 03-27-2025 Platelet mean volume (Bld) [Entitic vol] 10.6 fL 6.2-12.0 [facility] Monocyte percentageOrdered B y: Wanda Burrows on 03-27-2025 Monocytes/100 WBC (Bld) 8.4 % 0-10 [facility] Neutrophil percentageOrdered By: Wanda Burrows on 03-27-2025 Neutrophils/100 WBC (Bld) 64.2 % 47-70 [facility] Nucleated red blood cell per centageOrdered By: Wanda Burrows on 03-27-2025 Nucleated RBC/100 WBC (Bld) [Ratio] 0 % 0-5 [facility] Platelet countOrdered By: Gregorio Burrows on 03-27-2025 Platelets (Bld) [#/Vol] 412 10*3/uL 150-450 [facility] Potassium measurement (mass/ volume)Ordered By: Wanda Burrows on 03-27-2025 Potassium (Unsp spec) [Mass/Vol] 4.4 mmol/L 3.3-5.1 [facility] RBC Auto (Bld) [#/Vol]Ordere d By: Wanda Burrows on 03-27-2025 RBC (Bld) [#/Vol] 4.32 10*6/uL 4.2-5.4 [facility] Serum creatinine measurement (mass/volume)Ordered By: Wanda Burrows on 03-27-2025 Creatinine [Mass/Vol] 0.70 mg/dL 0.70-1.20 [facility] Serum globulin measurementOr dered By: Wanda Burrows on 03-27-2025 Globulin (S) [Mass/Vol] 3.2 g/dL 2.2-4.2 [facility] Serum glucose measurement (m ass/volume)Ordered By: Wanda Burrows on 03-27-2025 Glucose [Mass/Vol] 85 mg/dL 70-99 [facility] Serum or plasma alanine vasquez otransferase (ALT) measurementOrdered By: Wanda Burrows on 03-27-2025 ALT [Catalytic activity/Vol] 25 U/L <35 [facility] Serum or plasma albumin pierre urement (mass/volume)Ordered By: Wanda Burrows on 03-27-2025 Albumin [Mass/Vol] 4.6 g/dL 3.5-5.0 [facility] Serum or plasma albumin/glob ulin mass ratioOrdered By: Wanda Burrows on 03-27-2025 Albumin/Globulin [Mass ratio] 1.4 {ratio} 0.9-2.4 [facility] Serum or plasma alkaline marielle sphatase measurementOrdered By: Wanda Burrows on 03-27-2025 ALP [Catalytic activity/Vol] 61 U/L 35-104 [facility] Serum or plasma calcium pierre urement (mass/volume)Ordered By: Wanda Burrows on 03-27-2025 Calcium [Mass/Vol] 9.5 mg/dL 7.6-11.0 [facility] Serum or plasma urea nitroge n measurement (mass/volume)Ordered By: Wanda Burrows on 03-27-2025 Urea nitrogen [Mass/Vol] 15 mg/dL 4-19 [facility] Sodium levelOrdered By: Kim Burrows on 03-27-2025 Sodium [Moles/Vol] 136 mmol/L 133-145 [facility] Total proteinOrdered By: Ge Burrows on 03-27-2025 Protein [Mass/Vol] 7.8 g/dL 5.9-8.4 [facility] White blood cell (WBC) count Ordered By: Wanda Burrows on 03-27-2025 WBC (Bld) [#/Vol] 6.9 10*3/uL 4.4-11.0 [facility] Calculated very low density lipoprotein (VLDL) cholesterol measurementOrdered By: Ya Santillan on 01-12-2025 Calculated very low density lipoprotein (VLDL) cholesterol measurement 16 mg/dL [facility] VLDL Cholesterol 16 mg/dL [facility] LDL calc ser/plasOrdered By: Ya Santillan on 01-12-2025 Cholesterol in LDL [Mass/Vol] 113 mg/dL [facility] Comment on above: Brsngjgyya=674-511 m g/dL & Higher Kczy=500 mg/dL or greater LDL Cholesterol, Calculated 113 mg/dL [facility] Comment on above: Shbdpwjdmd=661-361 m g/dL & Higher Zzjy=605 mg/dL or greater Lipid Profileon 01-12-2025 CHOL:HDL 3.44 Normal [facility] Comment on above: Performed By: #### L 501.9520, L506.1001, L500.4100 #### [facility] [address] [facility] [place], [address] Cholesterol [Mass/Vol] 182 mg/dL Normal <=200 [facility] Comment on above: Result Comment: Chol esterol level, Desirable <200 mg/dL Borderline high cholesterol 200-239 mg/dL High cholesterol >=240 mg/dL Recommendations of the NCEP Adult Treatment Panel for the following risk-cutoff thresholds for the [place] population. Performed By: #### L 501.9520, L506.1001, L500.4100 #### [facility] [address] [place], [address] Cholesterol in HDL [Mass/Vol] 53 mg/dL Normal [facility] Comment on above: Result Comment: Simran onal Cholesterol Education Program (NCEP) guidelines: <40 mg/dL: Low HDL-cholesterol (major risk factor for CHD) >= 60 mg/dL: High HDL-cholesterol (negative risk factor for CHD) HDL-cholesterol is affected by a number of factors, e.g. smoking, exercise, hormones, sex and age. Performed By: #### L 501.9520, L506.1001, L500.4100 #### [facility] [address] [place], [address] Cholesterol in LDL [Mass/Vol] 113 mg/dL Normal [facility] Comment on above: Result Comment: Bord rqegri=446-313 mg/dL Higher Ebcv=245 mg/dL or greater Performed By: #### L 501.9520, L506.1001, L500.4100 #### [facility] [address] [place], [address] Cholesterol in VLDL [Mass/Vol] 16 mg/dL Normal 5-40 [facility] Comment on above: Performed By: #### L 501.9520, L506.1001, L500.4100 #### [facility] [address] [place], [address] Triglyceride [Mass/Vol] 80 mg/dL Normal [facility] Comment on above: Result Comment: The drugs N-Acetylcysteine and Metamizole may falsely depress this assay. Normal range: <150 mg/dL Borderline High: 150-199 mg/dL High: 200-499 mg/dL Very High: >500 mg/dL Performed By: #### L 501.9520, L506.1001, L500.4100 #### [facility] [address] [place], [address] Screening total cholesterol/ high density lipoprotein (HDL) cholesterol ratioOrdered By: Ya Santillan on 01-12-2025 Cholesterol.total/Chol esterol in HDL [Mass ratio] 3.44 {ratio} [facility] Serum or plasma cholesterol in HDL measurement (mass/volume)Ordered By: Ya Santillan on 01-12-2025 Cholesterol in HDL [Mass/Vol] 53 mg/dL >40 [facility] Comment on above: National Cholesterol Education Program (NCEP) guidelines:<40 mg/dL: Low HDL-cholesterol (major risk factor for CHD)>= 60 mg/dL: High HDL-cholesterol (negative risk factor for CHD)HDL-cholesterol is affected by a number of factors, e.g. smoking, exercise, hormones, sex and age. Serum or plasma cholesterol measurement (mass/volume)Ordered By: Ya Santillan on 01-12-2025 Cholesterol [Mass/Vol] 182 mg/dL <201 [facility] Comment on above: Cholesterol level, D esirable <200 mg/dLBorderline high cholesterol 200-239 mg/dLHigh cholesterol >=240 mg/dLRecommendations of the NCEP Adult Treatment Panel for the following risk-cutoff thresholds for the [place] population. TSH DL <= 0.005 mIU/L QnOrde red By: Ya Santillan on 01-12-2025 Thyroid Stimulating Hormone (TSH) 2.050 uIU/mL 0.300-4.200 [facility] TSH Qn 2.050 uIU/mL 0.300-4.200 [facility] Thyroid Stim Hormone (TSH)on 01-12-2025 TSH 2.050 uIU/mL Normal 0.300-4.200 [facility] Comment on above: Performed By: #### L 501.9520, L506.1001, L500.4100 #### [facility] [address] [place] [address], [address] Triglycerides measurementOrd ered By: Ya Santillan on 01-12-2025 Triglyceride [Mass/Vol] 80 mg/dL <199 [facility] Comment on above: The drugs N-Acetylcy steine and Metamizole may falsely depress this assay. Normal range: <150 mg/dLBorderline High: 150-199 mg/dLHigh: 200-499 mg/dLVery High: >500 mg/dL Vitamin D, 25-hydroxyOrdered By: Ya Santillan on 01-12-2025 Vitamin D 25-Hydroxy 32.0 ng/mL 30-100 [facility] Comment on above: Vitamin D StatusDefi ciency: <20 ng/mL (50nmol/L)Insufficiency: 20-30 ng/mL (50-75 nmol/L)Sufficiency: 30-100 ng/mL (75-250 nmol/L)Toxicity: >100 ng/mL (>250 nmol/L) Vitamin D,25 Hydroxyon 01-12 Vitamin D 25-OH 32.0 ng/mL Normal 30-100 [facility] Comment on above: Result Comment: Annamaria min D Status Deficiency: <20 ng/mL (50nmol/L) Insufficiency: 20-30 ng/mL (50-75 nmol/L) Sufficiency: 30-100 ng/mL (75-250 nmol/L) Toxicity: >100 ng/mL (>250 nmol/L) Performed By: #### L 501.9520, L506.1001, L500.4100 #### [facility] [address] [place] [address], [id number] Absolute lymphocyte countOrd ered By: Wanda Burrows on 01-02-2025 Lymphocytes Auto (Unsp spec) [#/Vol] 2.48 10*3/uL 0.83-4.51 [facility] Absolute neutrophil countOrd ered By: Wanda Burrows on 01-02-2025 Neutrophils (Bld) [#/Vol] 5.2 10*3/uL 2.0-7.7 [facility] Anion gap in Serum or Plasma Ordered By: Wanda Burrows on 01-02-2025 Anion gap [Moles/Vol] 12 mmol/L 5-15 [facility] Automated lymphocyte count a s percentage of total leukocytesOrdered By: Wanda Burrows on 01-02-2025 Lymphocytes/100 WBC Auto (Unsp spec) 28.9 % 19-41 [facility] BUN/creatinine ratioOrdered By: Wanda Burrows on 01-02-2025 Urea nitrogen/Creatinine [Mass ratio] 20.5 mg/mg High 10-20 [facility] Basophil percentageOrdered B y: Wanda Burrows on 01-02-2025 Basophils/100 WBC (Bld) 0.8 % 0-1 [facility] Bilirubin, totalOrdered By: Wanda Burrows on 01-02-2025 Bilirubin [Mass/Vol] 0.31 mg/dL 0.00-1.30 [facility] CBC W/Diff, Automatedon Absolute Lymph 2.48 X10 3/uL Normal 0.83-4.51 [facility] Comment on above: Performed By: #### L 100.0100, L500.4050 #### [facility] [address] [place], [address] Absolute Neut 5.2 X10 3/uL Normal 2.0-7.7 [facility] Comment on above: Performed By: #### L 100.0100, L500.4050 #### [facility] [address] [place], [address] Basophils/100 WBC (Bld) 0.8 % Normal 0-1 [facility] Comment on above: Performed By: #### L 100.0100, L500.4050 #### [facility] [address] [place], [address] Eosinophils/100 WBC (Bld) 1.9 % Normal 0-5 [facility] Comment on above: Performed By: #### L 100.0100, L500.4050 #### [facility] [address] [place], [address] Erythrocyte distribution width (RBC) [Ratio] 14.6 % Normal 11.6-14.6 [facility] Comment on above: Performed By: #### L 100.0100, L500.4050 #### [facility] [address] [place], [address] Hematocrit (Bld) [Volume fraction] 39.5 % Normal 37-47 [facility] Comment on above: Performed By: #### L 100.0100, L500.4050 #### [facility] [address] [place], [address] Hemoglobin (Bld) [Mass/Vol] 12.4 g/dL Normal 12.0-15.0 [facility] Comment on above: Performed By: #### L 100.0100, L500.4050 #### [facility] [address] [place], [address] IG% 0.200 Normal 0.0-0.9 [facility] Comment on above: Result Comment: IG% - Immature Granulocytes (promyelocytes, myelocytes and metamyelocytes) > 1% indicates that a LEFT SHIFT is Present. Performed By: #### L 100.0100, L500.4050 #### [facility] [address] [place], [address] Lymphocytes/100 WBC (Bld) 28.9 % Normal 19-41 [facility] Comment on above: Performed By: #### L 100.0100, L500.4050 #### [facility] [address] [place], [address] MCH (RBC) [Entitic mass] 29.8 pg Normal 27.0-32.0 [facility] Comment on above: Performed By: #### L 100.0100, L500.4050 #### [facility] [address] [place], [address] MCHC (RBC) [Mass/Vol] 31.4 g/dL Low 32-36 [facility] Comment on above: Performed By: #### L 100.0100, L500.4050 #### [facility] [address] [place], [address] MCV (RBC) [Entitic vol] 95.0 fL Normal 81-99 [facility] Comment on above: Performed By: #### L 100.0100, L500.4050 #### [facility] [address] [place], [address] Monocytes/100 WBC (Bld) 8.0 % Normal 0-10 [facility] Comment on above: Performed By: #### L 100.0100, L500.4050 #### [facility] [address] [place], [address] Neutrophils/100 WBC (Bld) 60.2 % Normal 47-70 [facility] Comment on above: Performed By: #### L 100.0100, L500.4050 #### [facility] [address] [place], [address] Nucleated RBC (Bld) [#/Vol] 0 10*3/uL Normal 0-5 [facility] Comment on above: Performed By: #### L 100.0100, L500.4050 #### [facility] [address] [place], [address] Platelet mean volume (Bld) [Entitic vol] 11.1 fL Normal 6.2-12.0 [facility] Comment on above: Performed By: #### L 100.0100, L500.4050 #### [facility] [address] [place], [address] Platelets (Bld) [#/Vol] 387 10*3/uL Normal 150-450 [facility] Comment on above: Performed By: #### L 100.0100, L500.4050 #### [facility] [address] [place], [address] RBC (Bld) [#/Vol] 4.16 10*6/uL Low 4.2-5.4 [facility] Comment on above: Performed By: #### L 100.0100, L500.4050 #### [facility] [address] [place], [address] RDW SD 50.0 fl High 35.1-43.9 [facility] Comment on above: Performed By: #### L 100.0100, L500.4050 #### [facility] [address] [place], [address] WBC (Bld) [#/Vol] 8.6 10*3/uL Normal 4.4-11.0 [facility] Comment on above: Performed By: #### L 100.0100, L500.4050 #### [facility] [address] [place], [address] Carbon dioxide, total [Moles /volume] in Central venous bloodOrdered By: Wanda Burrows on 01-02-2025 CO2 [Moles/Vol] 22.1 mmol/L 21.0-32.0 [facility] Chloride assayOrdered By: Gregorio Burrows on 01-02-2025 Chloride [Moles/Vol] 104 mmol/L 98-108 [facility] Comprehensive Metabolic Prof ilon 01-02-2025 Albumin [Mass/Vol] 4.4 g/dL Normal 3.5-5.0 [facility] Comment on above: Performed By: #### L 500.4050, L100.0100 #### [facility] [address] [place], [address] Albumin/Globulin [Mass ratio] 1.4 {ratio} Normal 0.9-2.4 [facility] Comment on above: Performed By: #### L 500.4050, L100.0100 #### [facility] [address] [place], [address] ALK PHOS 56 U/L Normal 35-104 [facility] Comment on above: Performed By: #### L 500.4050, L100.0100 #### [facility] [address] [place], [address] ALT [Catalytic activity/Vol] 20 U/L Normal <=34 [facility] Comment on above: Performed By: #### L 500.4050, L100.0100 #### [facility] [address] [place], [address] AST [Catalytic activity/Vol] 19 U/L Normal <=31 [facility] Comment on above: Performed By: #### L 500.4050, L100.0100 #### [facility] [address] [place], [address] Bilirubin [Mass/Vol] 0.31 mg/dL Normal 0.00-1.30 [facility] Comment on above: Performed By: #### L 500.4050, L100.0100 #### [facility] [address] [place], [address] BUN/CRE 20.5 RATIO High 10-20 [facility] Comment on above: Performed By: #### L 500.4050, L100.0100 #### [facility] [address] [place], [address] Calcium [Mass/Vol] 9.2 mg/dL Normal 7.6-11.0 [facility] Comment on above: Performed By: #### L 500.4050, L100.0100 #### [facility] [address] [place], [address] Chloride [Moles/Vol] 104 mmol/L Normal 98-108 [facility] Comment on above: Performed By: #### L 500.4050, L100.0100 #### [facility] [address] [place], [address] CO2 [Moles/Vol] 22.1 mmol/L Normal 21.0-32.0 [facility] Comment on above: Performed By: #### L 500.4050, L100.0100 #### [facility] [address] [place], [address] Creatinine [Mass/Vol] 0.70 mg/dL Normal 0.70-1.20 [facility] Comment on above: Performed By: #### L 500.4050, L100.0100 #### [facility] [address] [place], [address] GAP 12 Normal 5-15 [facility] Comment on above: Performed By: #### L 500.4050, L100.0100 #### [facility] [address] [place], [address] GFR/1.73 sq M.predicted among non-blacks MDRD (S/P/Bld) [Vol rate/Area] 109 mL/min/{1.73_m2} Normal >60 [facility] Comment on above: Result Comment: mL/m in/1.73m2 CKD-EPI Creatinine Equation (2020) Performed By: #### L 500.4050, L100.0100 #### [facility] [address] [place], [address] Globulin (S) [Mass/Vol] 3.2 g/dL Normal 2.2-4.2 [facility] Comment on above: Performed By: #### L 500.4050, L100.0100 #### [facility] [address] [place], [address] Glucose [Mass/Vol] 77 mg/dL Normal 70-99 [facility] Comment on above: Performed By: #### L 500.4050, L100.0100 #### [facility] [address] [place], [address] Potassium [Moles/Vol] 4.7 mmol/L Normal 3.3-5.1 [facility] Comment on above: Performed By: #### L 500.4050, L100.0100 #### [facility] [address] [place], [address] Sodium [Moles/Vol] 139 mmol/L Normal 133-145 [facility] Comment on above: Performed By: #### L 500.4050, L100.0100 #### [facility] [address] [place], [address] T PROT 7.6 g/dL Normal 5.9-8.4 [facility] Comment on above: Performed By: #### L 500.4050, L100.0100 #### [facility] [address], [address] Urea nitrogen [Mass/Vol] 14 mg/dL Normal 4-19 [facility] Comment on above: Performed By: #### L 500.4050, L100.0100 #### [facility] [address] [place], [address] Eosinophil percentageOrdered By: Wanda Burrows on 01-02-2025 Eosinophils/100 WBC (Bld) 1.9 % 0-5 [facility] Erythrocyte distribution wid th (RBC) [Ratio]Ordered By: Wanda Burrows on 01-02-2025 Erythrocyte distribution width (RBC) [Entitic vol] 50.0 fL High 35.1-43.9 [facility] Erythrocyte distribution wid th ratioOrdered By: Wanda Markos on 01-02-2025 Erythrocyte distribution width (RBC) [Ratio] 14.6 % 11.6-14.6 [facility] Erythrocyte distribution wid th standard deviationOrdered By: Wanda Burrows on 01-02-2025 Erythrocyte distribution width (RBC) [Ratio] 50.0 fl High 35.1-43.9 [facility] GFR/1.73 sq M.predicted gilberto g non-blacks MDRD (S/P/Bld) [Vol rate/Area]Ordered By: Wanda Burrows on 01-02-2025 Estimated GFR (MDRD) Non-Af Amer 109 >60 [facility] Comment on above: mL/min/1.73m2 CKD-EP I Creatinine Equation (2020) Glomerular filtration rate ( GFR) estimation/1.73 sq m using serum, plasma, or whole bOrdered By: Wanda Burrows on 01-02-2025 GFR/1.73 sq M.predicted among non-blacks MDRD (S/P/Bld) [Vol rate/Area] 109 mL/min/{1.73_m2} >60 [facility] Comment on above: mL/min/1.73m2 CKD-EP I Creatinine Equation (2020) Hematocrit Auto (Bld) [Volum e fraction]Ordered By: Wanda Burrows on 01-02-2025 Hematocrit (Bld) [Volume fraction] 39.5 % 37-47 [facility] Hemoglobin measurementOrdere d By: Wanda Burrows on 01-02-2025 Hemoglobin (Bld) [Mass/Vol] 12.4 g/dL 12.0-15.0 [facility] Immature granulocytes/100 WB C Auto (Bld)Ordered By: Wanda Burrows on 01-02-2025 Immature granulocytes/100 WBC (Bld) 0.200 % 0.0-0.9 [facility] Comment on above: IG% - Immature Granu locytes (promyelocytes, myelocytes and metamyelocytes) > 1% indicates that a LEFT SHIFT is Present. Laboratory - Chemistry and C hemistry - challengeOrdered By: Wanda Burrows on 01-02-2025 AST [Catalytic activity/Vol] 19 U/L <32 [facility] Lymphocytes Auto (Unsp spec) [#/Vol]Ordered By: Wandanadine Burrows on 01-02-2025 Lymphocytes (Bld) [#/Vol] 2.48 10*3/uL 0.83-4.51 [facility] Lymphocytes/100 WBC Auto (Un sp spec)Ordered By: Wanda Burrows 01-02-2025 Lymphocytes/100 WBC (Bld) 28.9 % 19-41 [facility] MCV (mean corpuscular volume ) determinationOrdered By: Wanda Burrows on 01-02-2025 MCV (RBC) [Entitic vol] 95.0 fL 81-99 [facility] Mean corpuscular hemoglobin (MCH) determinationOrdered By: Wanda Burrows on 01-02-2025 MCH (RBC) [Entitic mass] 29.8 pg 27.0-32.0 [facility] Mean corpuscular hemoglobin concentration (MCHC) determinationOrdered By: Wanda Burrows on 01-02-2025 MCHC (RBC) [Mass/Vol] 31.4 g/dL Low 32-36 [facility] Mean platelet volume determi nationOrdered By: Wanda Burrows on 01-02-2025 Platelet mean volume (Bld) [Entitic vol] 11.1 fL 6.2-12.0 [facility] Monocyte percentageOrdered B y: Wanda Burrows on 01-02-2025 Monocytes/100 WBC (Bld) 8.0 % 0-10 [facility] Neutrophil percentageOrdered By: Wanda Burrows on 01-02-2025 Neutrophils/100 WBC (Bld) 60.2 % 47-70 [facility] Nucleated red blood cell per centageOrdered By: Wanda Burrows on 01-02-2025 Nucleated RBC/100 WBC (Bld) [Ratio] 0 % 0-5 [facility] Platelet countOrdered By: Gregorio Burrows on 01-02-2025 Platelets (Bld) [#/Vol] 387 10*3/uL 150-450 [facility] Potassium (Unsp spec) [Mass/ Vol]Ordered By: Wanda Burrows on 01-02-2025 Potassium [Moles/Vol] 4.7 mmol/L 3.3-5.1 [facility] Potassium measurement (mass/ volume)Ordered By: Wanda Burrows on 01-02-2025 Potassium (Unsp spec) [Mass/Vol] 4.7 mmol/L 3.3-5.1 [facility] RBC Auto (Bld) [#/Vol]Ordere d By: Wanda Burrows on 01-02-2025 RBC (Bld) [#/Vol] 4.16 10*6/uL Low 4.2-5.4 [facility] Serum creatinine measurement (mass/volume)Ordered By: Wanda Burrows on 01-02-2025 Creatinine [Mass/Vol] 0.70 mg/dL 0.70-1.20 [facility] Serum globulin measurementOr dered By: Wnada Burrows on 01-02-2025 Globulin (S) [Mass/Vol] 3.2 g/dL 2.2-4.2 [facility] Serum glucose measurement (m ass/volume)Ordered By: Wanda Burrows on 01-02-2025 Glucose [Mass/Vol] 77 mg/dL 70-99 [facility] Serum or plasma alanine vasquez otransferase (ALT) measurementOrdered By: Wanda Burrows on 01-02-2025 ALT [Catalytic activity/Vol] 20 U/L <35 [facility] Serum or plasma albumin pierre urement (mass/volume)Ordered By: Wanda Burrows on 01-02-2025 Albumin [Mass/Vol] 4.4 g/dL 3.5-5.0 [facility] Serum or plasma albumin/glob ulin mass ratioOrdered By: Wanda Burrows on 01-02-2025 Albumin/Globulin [Mass ratio] 1.4 {ratio} 0.9-2.4 [facility] Serum or plasma alkaline marielle sphatase measurementOrdered By: Wanda Burrows on 01-02-2025 ALP [Catalytic activity/Vol] 56 U/L 35-104 [facility] Serum or plasma calcium pierre urement (mass/volume)Ordered By: Wanda Burrows on 01-02-2025 Calcium [Mass/Vol] 9.2 mg/dL 7.6-11.0 [facility] [place] Serum or plasma urea nitroge n measurement (mass/volume)Ordered By: Wanda Burrows on 01-02-2025 Urea nitrogen [Mass/Vol] 14 mg/dL 4-19 [facility] Sodium levelOrdered By: Kim Burrows on 01-02-2025 Sodium [Moles/Vol] 139 mmol/L 133-145 [facility] [place] Total proteinOrdered By: Ge Burrows on 01-02-2025 Protein [Mass/Vol] 7.6 g/dL 5.9-8.4 [facility] [place] White blood cell (WBC) count Ordered By: Wanda Burrows on 01-02-2025 WBC (Bld) [#/Vol] 8.6 10*3/uL 4.4-11.0 [facility] [place] DBT Breast - bilateral scree ningon 12-18-2024 IMPRESSION: There is no mammographic evidence of malignancy in either breast. Routine screening mammogram is recommended. Annual mammogram will be due in 1 year. BI-RADS Category 1: Negative RISK: Based on the Tyrer-Cuzick (TC) risk assessment model, this patient has a 17.1% lifetime risk of developing breast cancer, meaning they are at average risk for developing breast cancer. However, this is only an estimate based on available history provided on the patient's questionnaire. We encourage all patients to talk with their providers about these results, further recommendations for managing breast health, and appropriate supplemental screening options if the patient has dense breast tissue. Interpreting Radiologist: Marivel Cook M.D. Electronically signed on: 12/18/2024 Gas System Operator: RADHA Transcrialmas Date/Time: Dec 18 2024 7:36A Dictated by: MARIVEL COOK MD This examination was interpreted and the report reviewed and electronically signed by: MARIVEL COOK MD on Dec 18 2024 10:08AM [facility] DIVISION OF RADIOLOGY * * *Final Report* * * DATE OF EXAM: Dec 18 2024 8:17AM [facility] 0582 - [facility] SCREENING W LALIHTA / PROCEDURE REASON: multiple diagnoses * * * * Physician Interpretation * * * * RESULT: [place] [address] #[id number] - [facility] SCREENING W LALITHA HISTORY: 44 year-old patient seen for screening. Patient is asymptomatic in both breasts. Patient states no personal history of breast cancer. The patient has a family history of breast cancer. COMPARISON STUDIES: The present examination has been compared to prior imaging studies dated 06/10/2018 (mammogram), 06/19/2018 (ultrasound), 07/29/2021 (mammogram), 09/15/2022 (mammogram) and 12/03/2023 (mammogram). MAMMOGRAM TECHNIQUE: The study was acquired using full field digital technology and interpreted from soft copy. Digital Breast Tomosynthesis (DBT) images were obtained and used to assist in the interpretation of this examination. MAMMOGRAM FINDINGS: There are scattered areas of fibroglandular density. No suspicious masses, calcifications or other abnormalities are seen in either breast. There are no significant interval changes. DIVISION OF RADIOLOGY Provider, [facility] [place] - 12/18/2024 * * *Final Report* * * DATE OF EXAM: Dec 18 2024 8:17AM [facility] 0582 - [facility] SCREENING W LALITHA / PROCEDURE REASON: multiple diagnoses * * * * Physician Interpretation * * * * RESULT: [facility] [address] [place] [address] #[id number] - [facility] SCREENING W LALITHA HISTORY: 44 year-old patient seen for screening. Patient is asymptomatic in both breasts. Patient states no personal history of breast cancer. The patient has a family history of breast cancer. COMPARISON STUDIES: The present examination has been compared to prior imaging studies dated 06/10/2018 (mammogram), 06/19/2018 (ultrasound), 07/29/2021 (mammogram), 09/15/2022 (mammogram) and 12/03/2023 (mammogram). MAMMOGRAM TECHNIQUE: The study was acquired using full field digital technology and interpreted from soft copy. Digital Breast Tomosynthesis (DBT) images were obtained and used to assist in the interpretation of this examination. MAMMOGRAM FINDINGS: There are scattered areas of fibroglandular density. No suspicious masses, calcifications or other abnormalities are seen in either breast. There are no significant interval changes. IMPRESSION IMPRESSION: There is no mammographic evidence of malignancy in either breast. Routine screening mammogram is recommended. Annual mammogram will be due in 1 year. BI-RADS Category 1: Negative RISK: Based on the Tyrer-Cuzick (TC) risk assessment model, this patient has a 17.1% lifetime risk of developing breast cancer, meaning they are at average risk for developing breast cancer. However, this is only an estimate based on available history provided on the patient's questionnaire. We encourage all patients to talk with their providers about these results, further recommendations for managing breast health, and appropriate supplemental screening options if the patient has dense breast tissue. Interpreting Radiologist: Marivel Cook M.D. Electronically signed on: 12/18/2024 Gas System Operator: RADHA Transcribe Date/Time: Dec 18 2024 7:36A Dictated by: MARIVEL COOK MD This examination was interpreted and the report reviewed and electronically signed by: MARIVEL COOK MD on Dec 18 2024 10:08AM EST [facility] Radiology Study observation (narrative) [facility] DBT Breast - bilateral scree ningOrdered By: [facility] Provider on 12-18-2024 [facility] SCREENING W TOMOon 12-18 [facility] SCREENING W LALITHA * * *Final Report* * * DATE OF EXAM: Dec 18 2024 8:17AM [facility] 0582 - [facility] SCREENING W LALITHA / PROCEDURE REASON: multiple diagnoses * * * * Physician Interpretation * * * * RESULT: [place] [address] [place] [address] #[id number] - [facility] SCREENING W LALITHA HISTORY: 44 year-old patient seen for screening. Patient is asymptomatic in both breasts. Patient states no personal history of breast cancer. The patient has a family history of breast cancer. COMPARISON STUDIES: The present examination has been compared to prior imaging studies dated 06/10/2018 (mammogram), 06/19/2018 (ultrasound), 07/29/2021 (mammogram), 09/15/2022 (mammogram) and 12/03/2023 (mammogram). MAMMOGRAM TECHNIQUE: The study was acquired using full field digital technology and interpreted from soft copy. Digital Breast Tomosynthesis (DBT) images were obtained and used to assist in the interpretation of this examination. MAMMOGRAM FINDINGS: There are scattered areas of fibroglandular density. No suspicious masses, calcifications or other abnormalities are seen in either breast. There are no significant interval changes. IMPRESSION: There is no mammographic evidence of malignancy in either breast. Routine screening mammogram is recommended. Annual mammogram will be due in 1 year. BI-RADS Category 1: Negative RISK: Based on the Tyrer-Cuzick (TC) risk assessment model, this patient has a 17.1% lifetime risk of developing breast cancer, meaning they are at average risk for developing breast cancer. However, this is only an estimate based on available history provided on the patient's questionnaire. We encourage all patients to talk with their providers about these results, further recommendations for managing breast health, and appropriate supplemental screening options if the patient has dense breast tissue. Interpreting Radiologist: Marivel Cook M.D. Electronically signed on: 12/18/2024 Gas System Operator: RADHA Transcribe Date/Time: Dec 18 2024 7:36A Dictated by: MARIVEL COOK MD This examination was interpreted and the report reviewed and electronically signed by: MARIVEL COOK MD on Dec 18 2024 10:08AM EST [id number] CN Normal [facility] CNOVon 12-11-2024 CNOV Office Visit (OBGYWM) KAREN HUTSON ([id number]) 1980 F Date Time Provider Department 12/11/24 8:15 AM EUSEBIA FOSTER OBGYWM During your visit today, we recorded the following information about you: Blood pressure Weight Height Last Period 126/84 103.4 kg 1.626 m 11/21/24 Eusebia Foster APRN.CNM 12/11/2024 8:32 AM Signed Karen is a 44 year old who presents for an annual gynecologic exam without complaints. Currently on methotrexate and feeling better. 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 History LMP: 11/21/2024 (Exact Date), Having periods Age at Menarche: 13 Age at First : Age at 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 No bloating, early satiety, indigestion, or increased flatulence. Bladder: No dysuria, gross hematuria, urinary frequency, urinary urgency, positive for stress incontinence Breast: No breast lumps, nipple d/c, overlying skin changes, redness or skin retraction. Allergies and current medication updated:Yes SENSITIVE EXAM: The sensitive examination was discussed with the Patient or Patient's Authorized Labor Supervisor. As applicable, any other physician, advance practice provider, medical student, or other health professional student that will be observing or involved in the sensitive examination for educational or training purposes was discussed with the Patient or Authorized Labor Supervisor. The Patient or Authorized Labor Supervisor has agreed to proceed with the sensitive examination. (Sensitive examination includes inspection and/or palpation of the breasts, pelvis, prostate and anorectal regions). EXAM: BP 126/84 Ht 5' 4 (1.63m) Wt 228 lb (103.4kg) LMP 11/21/2024 BMI 39.12 kg/(m2). GENERAL: pleasant, female in no apparent distress HEENT: Normocephalic and atraumatic NECK: Supple and full range of motion DERMATOLOGY: Normal and without lesions BREAST: soft, non-tender, symmetric, no dominant mass, normal nipple-areolar complex, no lymphadenopathy, no nipple discharge, and fibrocystic changes CHEST: Normal inspiratory effort ABDOMEN: soft, non-tender, and no masses PELVIC: external genitalia normal, normal Bartholin's glands, urethra, K[place]etoh's glands, no vulvar lesions, no cervical lesions, good vaginal support, physiologic discharge present, normal appearing perineal body and perianal region, well estrogenized BIMANUAL: uterus normal size, shape and consistency, no adnexal masses, non-tender, and no cervical motion tenderness RECTOVAGINAL: deferred. NEURO: alert and oriented x3,exam grossly non-focal EXTREMITIES: normal ASSESSMENT/PLAN: 1) Health maintenance: Pap/HPV up to date. Mammogram ordered. Nutrition, exercise and routine health maintenance exams reviewed. Lipids/glucose: followed by PCP 2) Contraception: vasectomy. Contraceptive options reviewed and information provided. 3) STD screening: Declined STD check. 4) Follow up one year or sooner as needed Eusebia Foster APRN.CNM Allergies As of Date: 12/11/2024 (No Known Allergies) Date Reviewed: 12/11/2024 Reviewed by: Dudley Aparicio MA - Fully Assessed Reason for Visit: Well Woman [1463] Primary Visit Diagnosis:Encounter for gynecological examination (general) (routine) with abnormal findings [Z01.411] Other Visit Diagnoses:Encounter for screening mammogram for breast cancer (more content not included)... Normal [facility] Absolute neutrophil countOrd ered By: Wandanadine Burrows on 11-08-2024 Neutrophils (Bld) [#/Vol] 4.1 10*3/uL 2.0-7.7 [facility] Albumin to globulin ratioOrd ered By: Wanda Burrows on 11-08-2024 Albumin/Globulin [Mass ratio] 0.9 {ratio} 0.9-2.4 [facility] Basophil percentageOrdered B y: Wanda Burrows on 11-08-2024 Basophils/100 WBC (Bld) 1.0 % 0-1 [facility] Bilirubin, totalOrdered By: [facility] on 11-08-2024 Bilirubin [Mass/Vol] 0.40 mg/dL 0.20-1.00 [facility] Comment on above: For patients on eltr ombopag therapy, use of Dimension Lyme TBIL is not recommended. Blood urea nitrogen (BUN)/cr eatinine ratioOrdered By: Wandanadine Burrows on 11-08-2024 Urea nitrogen/Creatinine [Mass ratio] 26.9 mg/mg High 10-20 [facility] CBC W/Diff, Automatedon Absolute Lymph 2.15 X10 3/uL Normal 0.83-4.51 [facility] Comment on above: Performed By: #### L 100.0100, L500.4050 #### [facility] [place], [address] Absolute Neut 4.1 X10 3/uL Normal 2.0-7.7 [facility] Comment on above: Performed By: #### L 100.0100, L500.4050 #### [facility] [address] [place], [address] Basophils/100 WBC (Bld) 1.0 % Normal 0-1 [facility] Comment on above: Performed By: #### L 100.0100, L500.4050 #### [facility] [address] [place], [address] Eosinophils/100 WBC (Bld) 2.0 % Normal 0-5 [facility] Comment on above: Performed By: #### L 100.0100, L500.4050 #### [facility] [address] [place], [address] Erythrocyte distribution width (RBC) [Ratio] 13.6 % Normal 11.6-14.6 [facility] Comment on above: Performed By: #### L 100.0100, [id number] #### [facility] [address] [place], [address] Hematocrit (Bld) [Volume fraction] 39.1 % Normal 37-47 [facility] Comment on above: Performed By: #### L 100.0100, L500.4050 #### [facility] [address] [place], [address] Hemoglobin (Bld) [Mass/Vol] 12.4 g/dL Normal 12.0-15.0 [facility] Comment on above: Performed By: #### L 100.0100, L500.4050 #### [facility] [address] [place], [address] IG% 0.100 Normal 0.0-0.9 [facility] Comment on above: Result Comment: IG% - Immature Granulocytes (promyelocytes, myelocytes and metamyelocytes) > 1% indicates that a LEFT SHIFT is Present. Performed By: #### L 100.0100, L500.4050 #### [facility] [address] [place], [address] Lymphocytes/100 WBC (Bld) 30.7 % Normal 19-41 [facility] Comment on above: Performed By: #### L 100.0100, [id number] #### [facility] [address] [place], [address] MCH (RBC) [Entitic mass] 29.2 pg Normal 27.0-32.0 [facility] Comment on above: Performed By: #### L 100.0100, [id number] #### [facility] [address] [place], [address] MCHC (RBC) [Mass/Vol] 31.7 g/dL Low 32-36 [facility] Comment on above: Performed By: #### L 100.0100, [id number] #### [facility] [address] [place], [address] MCV (RBC) [Entitic vol] 92.2 fL Normal 81-99 [facility] Comment on above: Performed By: #### L 100.0100, [id number] #### [facility] [address] [place], [address] Monocytes/100 WBC (Bld) 8.1 % Normal 0-10 [facility] Comment on above: Performed By: #### L 100.0100, [id number] #### [facility] [address] [place], [address] Neutrophils/100 WBC (Bld) 58.1 % Normal 47-70 [facility] Comment on above: Performed By: #### L 100.0100, [id number] #### [facility] [address] [place], [address] Nucleated RBC (Bld) [#/Vol] 0 10*3/uL Normal 0-5 [facility] Comment on above: Performed By: #### L 100.0100, [id number] #### [facility] [address] [place], [address] Platelet mean volume (Bld) [Entitic vol] 10.5 fL Normal 6.2-12.0 [facility] Comment on above: Performed By: #### L 100.0100, L500.4050 #### [facility] [address] [place], [address] Platelets (Bld) [#/Vol] 379 10*3/uL Normal 150-450 [facility] Comment on above: Performed By: #### L 100.0100, [id number] #### [facility] [address] [place], [address] RBC (Bld) [#/Vol] 4.24 10*6/uL Normal 4.2-5.4 [facility] Comment on above: Performed By: #### L 100.0100, [id number] #### [facility] [address] [place], [address] RDW SD 46.1 fl High 35.1-43.9 [facility] Comment on above: Performed By: #### L 100.0100, [id number] #### [facility] [address] [place], [address] WBC (Bld) [#/Vol] 7.0 10*3/uL Normal 4.4-11.0 [facility] Comment on above: Performed By: #### L 100.0100, [id number] #### [facility] [address] [place], [address] Carbon dioxide measurementOr dered By: Wanda Burrows on 11-08-2024 CO2 [Moles/Vol] 28.0 mmol/L 21.0-32.0 [facility] Chloride measurementOrdered By: Wanda Burrows on 11-08-2024 Chloride [Moles/Vol] 103 mmol/L 98-107 [facility] Comprehensive Metabolic Prof ilon 11-08-2024 Albumin [Mass/Vol] 3.7 g/dL Normal 3.2-5.0 [facility] Comment on above: Performed By: #### L 100.0100, L500.4050 #### [facility] [address] [place], [address] Albumin/Globulin [Mass ratio] 0.9 {ratio} Normal 0.9-2.4 [facility] Comment on above: Performed By: #### L 100.0100, [id number] #### [facility] [address] [place], [address] ALK P 52 U/L Normal 45-117 [facility] Comment on above: Performed By: #### L 100.0100, [id number] #### [facility] [address] [place], [address] ALT [Catalytic activity/Vol] 21 U/L Normal 13-56 [facility] Comment on above: Performed By: #### L 100.0100, [id number] #### [facility] [address] [place], [address] AST [Catalytic activity/Vol] 12 U/L Low 15-37 [facility] Comment on above: Performed By: #### L 100.0100, [id number] #### [facility] [address] [place], [address] Bilirubin [Mass/Vol] 0.40 mg/dL Normal 0.20-1.00 [facility] Comment on above: Result Comment: For patients on eltrombopag therapy, use of Dimension Lyme TBIL is not recommended. Performed By: #### L 100.0100, L500.4050 #### [facility] [address] [place], [address] BUN/CRE 26.9 RATIO High 10-20 [facility] Comment on above: Performed By: #### L 100.0100, L500.4050 #### [facility] [address] [place], [address] CA,Total 9.2 mg/dL Normal 8.5-10.1 [facility] Comment on above: Performed By: #### L 100.0100, L500.4050 #### [facility] [address] [place], [address] Chloride [Moles/Vol] 103 mmol/L Normal 98-107 [facility] Comment on above: Performed By: #### L 100.0100, L500.4050 #### [facility] [address] [place], [address] CO2 [Moles/Vol] 28.0 mmol/L Normal 21.0-32.0 [facility] Comment on above: Performed By: #### L 100.0100, L500.4050 #### [facility] [address] [place], [address] Creatinine [Mass/Vol] 0.63 mg/dL Normal 0.55-1.02 [facility] Comment on above: Result Comment: The validity of the calculated GFR GFRAA in patients over 70 years has not been determined. Clinical correlation is essential. Performed By: #### L 100.0100, L500.4050 #### [facility] [address] [place], [address] EST GFR - AA 131 mL/min Normal >60 [facility] Comment on above: Result Comment: Afri can Faroese GFR Calc Performed By: #### L 100.0100, L500.4050 #### [facility] [address] [place], [address] GAP 4 Low 5-15 [facility] Comment on above: Performed By: #### L 100.0100, L500.4050 #### [facility] [address] [place], [address] GFR/1.73 sq M.predicted among non-blacks MDRD (S/P/Bld) [Vol rate/Area] 109 mL/min/{1.73_m2} Normal >60 [facility] Comment on above: Result Comment: Non- GFR Calc Performed By: #### L 100.0100, L500.4050 #### [facility] [address] [place], [address] Globulin (S) [Mass/Vol] 3.9 g/dL Normal 2.2-4.2 [facility] Comment on above: Performed By: #### L 100.0100, L500.4050 #### [facility] [address] [place], [address] Glucose [Mass/Vol] 85 mg/dL Normal 74-106 [facility] Comment on above: Performed By: #### L 100.0100, L500.4050 #### [facility] [address] [place], [address] Potassium [Moles/Vol] 4.2 mmol/L Normal 3.5-5.1 [facility] Comment on above: Performed By: #### L 100.0100, L500.4050 #### [facility] [address] [place], [address] Sodium [Moles/Vol] 135 mmol/L Low 136-145 [facility] Comment on above: Performed By: #### L 100.0100, L500.4050 #### [facility] [address] [place], [address] T PROT 7.6 g/dL Normal 6.4-8.2 [facility] Comment on above: Performed By: #### L 100.0100, L500.4050 #### [facility] [address] [place], [address] Urea nitrogen [Mass/Vol] 17 mg/dL Normal 7-18 [facility] Comment on above: Performed By: #### L 100.0100, L500.4050 #### [facility] [address] [place], [address] Eosinophil percentageOrdered By: Wanda Burrows on 11-08-2024 Eosinophils/100 WBC (Bld) 2.0 % 0-5 [facility] Erythrocyte distribution wid th (RBC) [Ratio]Ordered By: Wanda Burrows on 11-08-2024 Erythrocyte distribution width (RBC) [Entitic vol] 46.1 fL High 35.1-43.9 [facility] Erythrocyte distribution wid th ratioOrdered By: Wanda Burrows on 11-08-2024 Erythrocyte distribution width (RBC) [Ratio] 13.6 % 11.6-14.6 [facility] Estimated glomerular filtrat ion rate (GFR) AmericanOrdered By: Wanda Burrows on 11-08-2024 Estimated GFR (MDRD) Amer 131 mL/min >60 [facility] Comment on above: GFR Calc Glomerular filtration rate ( GFR) estimationOrdered By: Wanda Burrows on 11-08-2024 Estimated GFR (MDRD) Non-Af Amer 109 mL/min >60 [facility] Comment on above: Non- GFR Calc Glucose measurementOrdered B y: Wanda Burrows on 11-08-2024 Glucose [Mass/Vol] 85 mg/dL 74-106 [facility] Hematocrit Auto (Bld) [Volum e fraction]Ordered By: Wanda Burrows on 11-08-2024 Hematocrit (Bld) [Volume fraction] 39.1 % 37-47 [facility] Hemoglobin measurementOrdere d By: Wanda Burrows on 11-08-2024 Hemoglobin (Bld) [Mass/Vol] 12.4 g/dL 12.0-15.0 [facility] Immature granulocytes/100 WB C Auto (Bld)Ordered By: Wanda Burrows on 11-08-2024 Immature granulocytes/100 WBC (Bld) 0.100 % 0.0-0.9 [facility] Comment on above: IG% - Immature Granu locytes (promyelocytes, myelocytes and metamyelocytes) > 1% indicates that a LEFT SHIFT is Present. Laboratory - Chemistry and C hemistry - challengeOrdered By: Wanda Burrows on 11-08-2024 AST [Catalytic activity/Vol] 12 U/L Low 15-37 [facility] Lymphocytes Auto (Unsp spec) [#/Vol]Ordered By: Wanda Burrows on 11-08-2024 Lymphocytes (Bld) [#/Vol] 2.15 10*3/uL 0.83-4.51 [facility] Lymphocytes/100 WBC Auto (Un sp spec)Ordered By: Wanda Burrows on 11-08-2024 Lymphocytes/100 WBC (Bld) 30.7 % 19-41 [facility] MCV (mean corpuscular volume ) determinationOrdered By: [facility] Markos on 11-08-2024 MCV (RBC) [Entitic vol] 92.2 fL 81-99 [facility] Mean corpuscular hemoglobin (MCH) determinationOrdered By: Wanda Burrows on 11-08-2024 MCH (RBC) [Entitic mass] 29.2 pg 27.0-32.0 [facility] Mean corpuscular hemoglobin concentration (MCHC) determinationOrdered By: Wanda Burrows on 11-08-2024 MCHC (RBC) [Mass/Vol] 31.7 g/dL Low 32-36 [facility] Mean platelet volume determi nationOrdered By: Wanda Burrows on 11-08-2024 Platelet mean volume (Bld) [Entitic vol] 10.5 fL 6.2-12.0 [facility] Monocyte percentageOrdered B y: Wanda Burrows on 11-08-2024 Monocytes/100 WBC (Bld) 8.1 % 0-10 [facility] Neutrophil percentageOrdered By: Wanda Burrows on 11-08-2024 Neutrophils/100 WBC (Bld) 58.1 % 47-70 [facility] Nucleated red blood cell per centageOrdered By: Wanda Burrows on 11-08-2024 Nucleated RBC/100 WBC (Bld) [Ratio] 0 % 0-5 [facility] Platelet countOrdered By: Gregorio Burrows on 11-08-2024 Platelets (Bld) [#/Vol] 379 10*3/uL 150-450 [facility] Potassium measurementOrdered By: Wanda Burrows on 11-08-2024 Potassium [Moles/Vol] 4.2 mmol/L 3.5-5.1 [facility] RBC Auto (Bld) [#/Vol]Ordere d By: Wanda Burrows on 11-08-2024 RBC (Bld) [#/Vol] 4.24 10*6/uL 4.2-5.4 [facility] Serum anion gap measurementO rdered By: Wanda Burrows on 11-08-2024 Anion gap [Moles/Vol] 4 mmol/L Low 5-15 [facility] Serum globulin measurementOr dered By: Wanda Burrows on 11-08-2024 Globulin (S) [Mass/Vol] 3.9 g/dL 2.2-4.2 [facility] Serum or plasma alanine vasquez otransferase (ALT) measurementOrdered By: Wanda Burrows on 11-08-2024 ALT [Catalytic activity/Vol] 21 U/L 13-56 [facility] Serum or plasma albumin pierre urement (mass/volume)Ordered By: Wanda Burrows on 11-08-2024 Albumin [Mass/Vol] 3.7 g/dL 3.2-5.0 [facility] Serum or plasma alkaline marielle sphatase measurementOrdered By: Wanda Burrows on 11-08-2024 ALP [Catalytic activity/Vol] 52 U/L 45-117 [facility] Serum or plasma calcium pierre urement (mass/volume)Ordered By: Wanda Burrows on 11-08-2024 Calcium [Mass/Vol] 9.2 mg/dL 8.5-10.1 [facility] Serum or plasma creatinine m easurement (mass/volume)Ordered By: Wanda Burrows on 11-08-2024 Creatinine [Mass/Vol] 0.63 mg/dL 0.55-1.02 [facility] Comment on above: The validity of the calculated GFR & GFRAA in patients over 70 years has not been determined. Clinical correlation is essential. Serum or plasma urea nitroge n measurement (mass/volume)Ordered By: Wanda Burrows on 11-08-2024 Urea nitrogen [Mass/Vol] 17 mg/dL 7-18 [facility] Sodium levelOrdered By: Kim Burrows on 11-08-2024 Sodium [Moles/Vol] 135 mmol/L Low 136-145 [facility] Total proteinOrdered By: Ge Burrows on 11-08-2024 Protein [Mass/Vol] 7.6 g/dL 6.4-8.2 [facility] White blood cell (WBC) count Ordered By: Wanda Burrows on 11-08-2024 WBC (Bld) [#/Vol] 7.0 10*3/uL 4.4-11.0 [facility] CBC W/Diff, Automatedon - Absolute Lymph 2.35 X10 3/uL Normal 0.83-4.51 [facility] Comment on above: Performed By: #### L 500.4050, L100.0100 #### [facility] [address] [place], [address] Absolute Neut 4.3 X10 3/uL Normal 2.0-7.7 [facility] Comment on above: Performed By: #### L 500.4050, L100.0100 #### [facility] [address] [place], [address] Basophils/100 WBC (Bld) 0.7 % Normal 0-1 [facility] Comment on above: Performed By: #### L 500.4050, L100.0100 #### [facility] [address] [place], [address] Eosinophils/100 WBC (Bld) 1.9 % Normal 0-5 [facility] Comment on above: Performed By: #### L 500.4050, L100.0100 #### [facility] [address] [place], [address] Erythrocyte distribution width (RBC) [Ratio] 14.0 % Normal 11.6-14.6 [facility] Comment on above: Performed By: #### L 500.4050, L100.0100 #### [facility] [address] [place], [address] Hematocrit (Bld) [Volume fraction] 38.7 % Normal 37-47 [facility] Comment on above: Performed By: #### L 500.4050, L100.0100 #### [facility] [address] [place], [address] Hemoglobin (Bld) [Mass/Vol] 12.1 g/dL Normal 12.0-15.0 [facility] Comment on above: Performed By: #### L 500.4050, L100.0100 #### [facility] [address] [place], [address] IG% 0.300 Normal 0.0-0.9 [facility] Comment on above: Result Comment: IG% - Immature Granulocytes (promyelocytes, myelocytes and metamyelocytes) > 1% indicates that a LEFT SHIFT is Present. Performed By: #### L 500.4050, L100.0100 #### [facility] [address] [place], [address] Lymphocytes/100 WBC (Bld) 31.6 % Normal 19-41 [facility] Comment on above: Performed By: #### L 500.4050, L100.0100 #### [facility] [address] [place], [address] MCH (RBC) [Entitic mass] 29.3 pg Normal 27.0-32.0 [facility] Comment on above: Performed By: #### L 500.4050, L100.0100 #### [facility] [address] [place], [address] MCHC (RBC) [Mass/Vol] 31.3 g/dL Low 32-36 [facility] Comment on above: Performed By: #### L 500.4050, L100.0100 #### [facility] [address] [place], [address] MCV (RBC) [Entitic vol] 93.7 fL Normal 81-99 [facility] Comment on above: Performed By: #### L 500.4050, L100.0100 #### [facility] [address] [place], [address] Monocytes/100 WBC (Bld) 7.5 % Normal 0-10 [facility] Comment on above: Performed By: #### L 500.4050, L100.0100 #### [facility] [address] [place], [address] Neutrophils/100 WBC (Bld) 58.0 % Normal 47-70 [facility] Comment on above: Performed By: #### L 500.4050, L100.0100 #### [facility] [address] [place], [address] Nucleated RBC (Bld) [#/Vol] 0 10*3/uL Normal 0-5 [facility] Comment on above: Performed By: #### L 500.4050, L100.0100 #### [facility] [address] [place], [address] Platelet mean volume (Bld) [Entitic vol] 11.8 fL Normal 6.2-12.0 [facility] Comment on above: Performed By: #### L 500.4050, L100.0100 #### [facility] [address] [place], [address] Platelets (Bld) [#/Vol] 277 10*3/uL Normal 150-450 [facility] Comment on above: Performed By: #### L 500.4050, L100.0100 #### [facility] [address] [place], [address] RBC (Bld) [#/Vol] 4.13 10*6/uL Low 4.2-5.4 [facility] Comment on above: Performed By: #### L 500.4050, L100.0100 #### [facility] [address] [place], [address] RDW SD 47.6 fl High 35.1-43.9 [facility] Comment on above: Performed By: #### L 500.4050, L100.0100 #### [facility] [address] [place], [address] WBC (Bld) [#/Vol] 7.4 10*3/uL Normal 4.4-11.0 [facility] Comment on above: Performed By: #### L 500.4050, L100.0100 #### [facility] [address] [place], [address] Comprehensive Metabolic [facility] 08-18-2024 Albumin [Mass/Vol] 3.7 g/dL Normal 3.2-5.0 [facility] Comment on above: Performed By: #### L 500.4050, L100.0100 #### [facility] [address] [place], [address] Albumin/Globulin [Mass ratio] 1.0 {ratio} Normal 0.9-2.4 [facility] Comment on above: Performed By: #### L 500.4050, L100.0100 #### [facility] [address] [place], [address] ALK P 54 U/L Normal 45-117 [facility] Comment on above: Performed By: #### L 500.4050, L100.0100 #### [facility] [address] [place], [address] ALT [Catalytic activity/Vol] 27 U/L Normal 13-56 [facility] Comment on above: Performed By: #### L 500.4050, L100.0100 #### [facility] [address] [place], [address] AST [Catalytic activity/Vol] 17 U/L Normal 15-37 [facility] Comment on above: Performed By: #### L 500.4050, L100.0100 #### [facility] [address] [place], [address] Bilirubin [Mass/Vol] 0.60 mg/dL Normal 0.20-1.00 [facility] Comment on above: Result Comment: For patients on eltrombopag therapy, use of Dimension Lyme TBIL is not recommended. Performed By: #### L 500.4050, L100.0100 #### [facility] [address] [place], [address] BUN/CRE 19.4 RATIO Normal 10-20 [facility] Comment on above: Performed By: #### L 500.4050, L100.0100 #### [facility] [address] [place], [address] CA,Total 9.2 mg/dL Normal 8.5-10.1 [facility] Comment on above: Performed By: #### L 500.4050, L100.0100 #### [facility] [address] [place], [address] Chloride [Moles/Vol] 104 mmol/L Normal 98-107 [facility] Comment on above: Performed By: #### L 500.4050, L100.0100 #### [facility] [address] [place], [address] CO2 [Moles/Vol] 25.0 mmol/L Normal 21.0-32.0 [facility] Comment on above: Performed By: #### L 500.4050, L100.0100 #### [facility] [address] [place], [address] Creatinine [Mass/Vol] 0.62 mg/dL Normal 0.55-1.02 [facility] Comment on above: Result Comment: The validity of the calculated GFR GFRAA in patients over 70 years has not been determined. Clinical correlation is essential. Performed By: #### L 500.4050, L100.0100 #### [facility] [address] [place], [address] EST GFR - AA 135 mL/min Normal >60 [facility] Comment on above: Result Comment: Afri can Faroese GFR Calc Performed By: #### L 500.4050, L100.0100 #### [facility] [address] [place], [address] GAP 5 Normal 5-15 [facility] Comment on above: Performed By: #### L 500.4050, L100.0100 #### [facility] [address] [place], [address] GFR/1.73 sq M.predicted among non-blacks MDRD (S/P/Bld) [Vol rate/Area] 112 mL/min/{1.73_m2} Normal >60 [facility] Comment on above: Result Comment: Non- GFR Calc Performed By: #### L 500.4050, L100.0100 #### [facility] [address] [place], [address] Globulin (S) [Mass/Vol] 3.7 g/dL Normal 2.2-4.2 [facility] Comment on above: Performed By: #### L 500.4050, L100.0100 #### [facility] [address] [place], [address] Glucose [Mass/Vol] 89 mg/dL Normal 74-106 [facility] Comment on above: Performed By: #### L 500.4050, L100.0100 #### [facility] [address] [place], [address] Potassium [Moles/Vol] 4.3 mmol/L Normal 3.5-5.1 [facility] Comment on above: Performed By: #### L 500.4050, L100.0100 #### [facility] [address] [place], [address] Sodium [Moles/Vol] 134 mmol/L Low 136-145 [facility] Comment on above: Performed By: #### L 500.4050, L100.0100 #### [facility] [address] [place], [address] T PROT 7.4 g/dL Normal 6.4-8.2 [facility] Comment on above: Performed By: #### L 500.4050, L100.0100 #### [facility] [address] [place], [address] Urea nitrogen [Mass/Vol] 12 mg/dL Normal 7-18 [facility] Comment on above: Performed By: #### L 500.4050, L100.0100 #### [facility] [address] [place], [address] CBC W/Diff, Automatedon 08-2 -2023 Absolute Lymph 2.33 X10 3/uL Normal 0.83-4.51 [facility] Comment on above: Performed By: #### L 100.0100, L500.4050 #### [facility] [address] [place], [address] Absolute Neut 4.4 X10 3/uL Normal 2.0-7.7 [facility] Comment on above: Performed By: #### L 100.0100, L500.4050 #### [facility] [address] [place], [address] Basophils/100 WBC (Bld) 0.9 % Normal 0-1 [facility] Comment on above: Performed By: #### L 100.0100, L500.4050 #### [facility] [address] [place], [address] Eosinophils/100 WBC (Bld) 1.7 % Normal 0-5 [facility] Comment on above: Performed By: #### L 100.0100, L500.4050 #### [facility] [address] [place], [address] Erythrocyte distribution width (RBC) [Ratio] 14.1 % Normal 11.6-14.6 [facility] Comment on above: Performed By: #### L 100.0100, L500.4050 #### [facility] [address] [place], [address] Hematocrit (Bld) [Volume fraction] 39.6 % Normal 37-47 [facility] Comment on above: Performed By: #### L 100.0100, L500.4050 #### [facility] [address] [place], [address] Hemoglobin (Bld) [Mass/Vol] 12.7 g/dL Normal 12.0-15.0 [facility] Comment on above: Performed By: #### L 100.0100, L500.4050 #### [facility] [address] [place], [address] IG% 0.300 Normal 0.0-0.9 [facility] Comment on above: Result Comment: IG% - Immature Granulocytes (promyelocytes, myelocytes and metamyelocytes) > 1% indicates that a LEFT SHIFT is Present. Performed By: #### L 100.0100, L500.4050 #### [facility] [address] [place], [address] Lymphocytes/100 WBC (Bld) 30.7 % Normal 19-41 [facility] Comment on above: Performed By: #### L 100.0100, L500.4050 #### [facility] [address] [place], [address] MCH (RBC) [Entitic mass] 29.8 pg Normal 27.0-32.0 [facility] Comment on above: Performed By: #### L 100.0100, L500.4050 #### [facility] [address] [place], [address] MCHC (RBC) [Mass/Vol] 32.1 g/dL Normal 32-36 [facility] Comment on above: Performed By: #### L 100.0100, L500.4050 #### [facility] [address] [place], [address] MCV (RBC) [Entitic vol] 93.0 fL Normal 81-99 [facility] Comment on above: Performed By: #### L 100.0100, L500.4050 #### [facility] [address] [place], [address] Monocytes/100 WBC (Bld) 8.8 % Normal 0-10 [facility] Comment on above: Performed By: #### L 100.0100, L500.4050 #### [facility] [address] [place], [address] Neutrophils/100 WBC (Bld) 57.6 % Normal 47-70 [facility] Comment on above: Performed By: #### L 100.0100, L500.4050 #### [facility] [address] [place], [address] Nucleated RBC (Bld) [#/Vol] 0 10*3/uL Normal 0-5 [facility] Comment on above: Performed By: #### L 100.0100, L500.4050 #### [facility] [address] [place], [address] Platelet mean volume (Bld) [Entitic vol] 10.8 fL Normal 6.2-12.0 [facility] Comment on above: Performed By: #### L 100.0100, L500.4050 #### [facility] [address] [place], [address] Platelets (Bld) [#/Vol] 357 10*3/uL Normal 150-450 [facility] Comment on above: Performed By: #### L 100.0100, L500.4050 #### [facility] [address] [place], [address] RBC (Bld) [#/Vol] 4.26 10*6/uL Normal 4.2-5.4 [facility] Comment on above: Performed By: #### L 100.0100, L500.4050 #### [facility] [address] [place], [address] RDW SD 47.4 fl High 35.1-43.9 [facility] Comment on above: Performed By: #### L 100.0100, L500.4050 #### [facility] [address] [place], [address] WBC (Bld) [#/Vol] 7.6 10*3/uL Normal 4.4-11.0 [facility] Comment on above: Performed By: #### L 100.0100, L500.4050 #### [facility] [address] [place], [address] Comprehensive Metabolic Prof ilon 05-22-2024 Albumin [Mass/Vol] 3.9 g/dL Normal 3.2-5.0 [facility] Comment on above: Performed By: #### L 100.0100, L500.4050 #### [facility] [address] [place], [address] Albumin/Globulin [Mass ratio] 0.9 {ratio} Normal 0.9-2.4 [facility] Comment on above: Performed By: #### L 100.0100, L500.4050 #### [facility] [address] [place], [address] ALK P 61 U/L Normal 45-117 [facility] Comment on above: Performed By: #### L 100.0100, L500.4050 #### [facility] [address] [place], [address] ALT [Catalytic activity/Vol] 25 U/L Normal 13-56 [facility] Comment on above: Performed By: #### L 100.0100, L500.4050 #### [facility] [address] [place], [address] AST [Catalytic activity/Vol] 16 U/L Normal 15-37 [facility] Comment on above: Performed By: #### L 100.0100, L500.4050 #### [facility] [address] [place], [address] Bilirubin [Mass/Vol] 0.40 mg/dL Normal 0.20-1.00 [facility] Comment on above: Result Comment: For patients on eltrombopag therapy, use of Dimension [place]yme TBIL is not recommended. Performed By: #### L 100.0100, L500.4050 #### [facility] [address] [place], [address] BUN/CRE 28.9 RATIO High 10-20 [facility] Comment on above: Performed By: #### L 100.0100, L500.4050 #### [facility] [address] [place], [address] CA,Total 9.6 mg/dL Normal 8.5-10.1 [facility] Comment on above: Performed By: #### L 100.0100, L500.4050 #### [facility] [address] [place], [address] Chloride [Moles/Vol] 102 mmol/L Normal 98-107 [facility] Comment on above: Performed By: #### L 100.0100, L500.4050 #### [facility] [address] [place], [address] CO2 [Moles/Vol] 25.0 mmol/L Normal 21.0-32.0 [facility] Comment on above: Performed By: #### L 100.0100, L500.4050 #### [facility] [address] [place], [address] Creatinine [Mass/Vol] 0.80 mg/dL Normal 0.55-1.02 [facility] Comment on above: Result Comment: The validity of the calculated GFR GFRAA in patients over 70 years has not been determined. Clinical correlation is essential. Performed By: #### L 100.0100, L500.4050 #### [facility] [address] [place], [address] EST GFR - AA 101 mL/min Normal >60 [facility] Comment on above: Result Comment: Afri can Faroese GFR Calc Performed By: #### L 100.0100, L500.4050 #### [facility] [address] [place], [address] GAP 8 Normal 5-15 [facility] Comment on above: Performed By: #### L 100.0100, L500.4050 #### [facility] [address] [place], [address] GFR/1.73 sq M.predicted among non-blacks MDRD (S/P/Bld) [Vol rate/Area] 83 mL/min/{1.73_m2} Normal >60 [facility] Comment on above: Result Comment: Non- GFR Calc Performed By: #### L 100.0100, L500.4050 #### [facility] [address] [place], [address] Globulin (S) [Mass/Vol] 4.2 g/dL Normal 2.2-4.2 [facility] Comment on above: Performed By: #### L 100.0100, L500.4050 #### [facility] [address] [place], [address] Glucose [Mass/Vol] 93 mg/dL Normal 74-106 [facility] Comment on above: Performed By: #### L 100.0100, L500.4050 #### [facility] [address] [place], [address] Potassium [Moles/Vol] 4.7 mmol/L Normal 3.5-5.1 [facility] Comment on above: Performed By: #### L 100.0100, L500.4050 #### [facility] [address] [place], [address] Sodium [Moles/Vol] 135 mmol/L Low 136-145 [facility] Comment on above: Performed By: #### L 100.0100, L500.4050 #### [facility] [address] [place], [address] T PROT 8.1 g/dL Normal 6.4-8.2 [facility] Comment on above: Performed By: #### L 100.0100, L500.4050 #### [facility] [address] [place], [address] Urea nitrogen [Mass/Vol] 23 mg/dL High 7-18 [facility] Comment on above: Performed By: #### L 100.0100, L500.4050 #### [facility] [address] [place], [address] CNOVon 04-15-2024 CNOV Office Visit (OTOLLN) KAREN HUTSON ([id number]) 1980 F Date Time Provider Department 04/15/24 10:55 AM RIVERA SALCIDO During your visit today, we recorded the following information about you: Temperature 98.4 degrees Rivera Salcido PA-C 04/15/2024 11:08 AM Signed Call [phone] to schedule the hearing aid evaluation ~~~~~~~~~~~~~~~~~~~~ ~~~~~~~~~~ The Hearing Aid Evaluation appointment with [facility] is a $100 charge. Hearing aids run from $1,300-5,500 per pair and the corporate fitness program coordinator can review those details at the appointment if you wish to proceed. I recommend calling insurance to inquire about cost coverage for hearing aids. They will also let you trial a pair for 30 days, but it will require the full cost of the hearing aids before doing so. If you don't like them, you can return them and get refunded. Rivera Salcido PA-C 04/15/2024 11:17 AM Signed CC: Karen Hutson is 43 year old female who is self-referred for hearing loss. Assessment and Plan: (H90.A21) Sensorineural hearing loss (SNHL) 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 (primary encounter diagnosis) ~audiogram demonstrates low tone SNHL of right ear and SNHL BL at 2000 Hz. Reports previous MRI brain with ENT that was normal ~low tone SNHL in consideration for Endolymphatic hydrops, however given this wasn't a sudden loss and not demonstrating symptoms historically, will observe ~ordered Hearing Aid Evaluation ~follow up with me as needed HPI: Karen is a 43 year old who reports hearing loss. She notes this is in both ears and has been a gradual change. Struggles to hear her teenage sons when they talk. Denies otalgia, otorrhea, h/o ear surgeries, or tubes. Left ear hears better than the right ear for many years. No tinnitus. Occasional vertigo lasting a few minutes. FH of mother with vertigo that lasts hours and unilateral hearing loss of her grandfather. Recalls she saw a ENT close to home who performed an MRI of her brain related to her hearing loss which is reportedly normal. ALLERGIES No Known Allergies Current Outpatient Medications Medication Sig methotrexate 2.5 mg tablet Clobetasol Propionate (TEMOVATE) 0.05 % external solution PRN No current facility-administere d medications for this visit. PAST MEDICAL HISTORY Diagnosis Date Psoriasis of scalp PAST SURGICAL HISTORY Procedure Laterality Date DENTAL IMPLANT 08/2019 EXTRACTION, ERUPTED TOOTH OR EXPOSED ROOT (ELEVATION AND/OR FORCEPS REMOVAL) PAST SURGICAL HISTORY OF Right 2004 breast biopsy Social History: Social History Tobacco Use Smoking status: Never Smokeless tobacco: Never Vaping Use Vaping Use: Never used Substance Use Topics Alcohol use: Yes Comment: occasional Drug use: No FAMILY HISTORY Problem Relation Age of Onset Heart Maternal Grandfather Prostate Cancer Father Breast Cancer Maternal Grandmother Breast Cancer Paternal Grandmother other (lupus) Mother Review Of Systems GENERAL: No weight loss, malaise or fevers. HEENT: Negative for frequent or significant headaches, Ears Positive for hearing loss I have confirmed and edited as necessary the ROS obtained by others. Rivera Salcido PA-C PHYSICAL EXAM: Temp 36.9 ?C (98.4 ?F) LMP 10/25/2023 No weight on file for this encounter. General appearance: Well appearing, alert, in no acute distress, well-hydrated, well nourished. Cranial Nerves: III-XII: grossly intact Skin: Skin color, texture, turgor normal, no suspicious rashes or lesions Head: normocephalic, no masses, lesions, tenderness or abnormalities Ears: Bilateral external ear(s) normal, external auditory canal(s) clear, tympanic membrane(s) normal. Neuro: Gait normal. Mental status revealed patient to be alert and oriented. Mood is appropriate Rivera Salcido PA-C Medical Decision Making: Problems: Moderate: 1+ chronic illnesses with change Data: Unique test result(s) reviewed: 1 Risk: Low: Low risk from testing/treatment Medical Decision Making Level: 3 - Low Allergies As of Date: 04/15/2024 (No Known Allergies) Date Reviewed: 04/15/2024 Reviewed by: Leona Barrios MA - Fully Assessed Reason for Visit: Consult [173] Primary Visit Diagnosis:Sensorineu ral hearing loss (SNHL) 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 [H90.A21] Order(s):HEARING AID LILIAN-BINAURAL [25050PCV] Order #: [id number] Prescriptions as of 04/15/2024 - methotrexate 2.5 mg tablet - Clobetasol Propionate (TEMOVATE) 0.05 % external solution PRN Problem List As Of Date 04/15/2024 Noted Resolved 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 Normal [facility] MR BRAIN W AND WO IV CONTRAS Ton 03-31-2024 MR BRAIN W AND WO IV CONTRAST Interpreted By: Kirby Grajeda, STUDY: MR BRAIN W AND WO IV CONTRAST; 03/31/2024 6:33 pm INDICATION: Signs/Symptoms:DISOR DERS OF CRANIAL NERVES. No additional information provided. COMPARISON: None. ACCESSION NUMBER(S): [id number] ORDERING CLINICIAN: JUANITO VICTOR TECHNIQUE: Cranial nerve protocol: Multiplanar multisequence MR imaging was performed through the brain prior to and following administration of 20 ML Dotarem intravenous contrast. FINDINGS: Parenchyma: There is no diffusion restriction abnormality to suggest acute infarct. No evidence of recent hemorrhage. There is no mass effect or midline shift. No abnormal parenchymal enhancement. No abnormal enhancement or masslike thickening of the visualized cranial nerves. No significant focal parenchymal signal abnormality. CSF Spaces: The ventricles, sulci and basal cisterns are within normal limits for age. Basilar cisterns are patent. Extra-axial spaces: No extra-axial fluid collection. Intracranial Flow Voids: Patent appearing. Paranasal Sinuses: Visualized paranasal sinuses are clear. Mastoids: Clear. Orbits: Normal. Calvarium: No suspicious osseous marrow signal. IMPRESSION: Normal MR appearance of the brain. No acute intracranial process or abnormal enhancement. The visualized cranial nerves demonstrate no abnormal enhancement or masslike thickening. MACRO: None Signed by: Kirby Grajeda 04/01/2024 11:01 AM Dictation workstation: [id number] [facility] CNOVon 02-28-2024 CNOV Office Visit (OTAUME) KAREN HUTSON ([id number]) 1980 F Date Time Provider Department 02/28/24 12:00 PM MERON BROOKS During your visit today, we recorded the following information about you: Meron Brooks AUD 02/28/2024 1:56 PM Signed [facility] [place] AUDIOLOGIC EVALUATION REPORT Name: Karen Hutson [facility]#: [id number] Date of Service: 02/28/2024 Date of : 1980 Age: [age] year old Referred by: No referring provider defined for this encounter. Referred for: Evaluation of suspected change in hearing, tinnitus, or balance. Referral documented: No referral on file Patient's major complaints: Reduced hearing right ear greater than left ear Karen Hutson was seen for an initial audiologic evaluation. Hearing loss: Gradually worsening hearing in both ears, worsening over the last few years. Having to ask her teenage sons and for repetition frequently. Left ear hearing is better than the right. 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 Refer to the Auditory Test Record for complete audiometric results. The patient was counseled about the test findings and appropriate audiologic recommendations were made. SUMMARY: Audiogram can be viewed under the Proc tab. OTOSCOPY RIGHT EAR: Otoscopic inspection revealed ear canal was clear with an identifiable cone of light. LEFT EAR: Otoscopic inspection revealed ear canal was clear with an identifiable cone of light. TYMPANOMETRY Description of procedure: This test is an objective evaluation of middle ear function. CPT code: 75210 RIGHT EAR: Normal ME function. LEFT EAR: Normal ME function. ACOUSTIC REFLEXES Description of procedure: This test is an objective measure of auditory and facial nerve pathways. CPT code: 53290, 94257 RIGHT EAR PROBE EAR: (ipsi right stimulus ear; contralateral left stimulus ear): Acoustic Reflex Pattern Did not test Acoustic Reflex Decay (left stimulus ear): Did not test. LEFT EAR PROBE EAR: (ipsi left stimulus ear; contralateral right stimulus ear): Acoustic Reflex Pattern Did not test Acoustic Reflex Decay (right stimulus ear):Did not test. PURE TONE AUDIOMETRY AND SPEECH TESTING Description of procedure: This test is an objective evaluation hearing sensitivity via air and bone conduction and speech recognition testing. CPT code: 40082 RIGHT EAR: Hearing Sensitivity: Mild sensorineural hearing loss rising to within normal limits 9000-8027 Hz. Word Recognition Score: Excellent (100%). WRS is consistent with hearing sensitivity. Words were presented at 55 dB HL which approximates (45-55 dB HL) intensity level for average conversational speech. The NU-6 Ordered by Difficulty Word List (10 words) was used for testing. LEFT EAR: Hearing Sensitivity: Essentially within normal limits Word Recognition Score: Excellent (100%). WRS is consistent with hearing sensitivity. Words were presented at 50 dB HL which approximates (45-55 dB HL) intensity level for average conversational speech. The NU-6 Ordered by Difficulty Word List (10 words) was used for testing. RECOMMENDATIONS * Consider otologic referral for further evaluation of asymmetric sensorineural hearing loss. * Continue to monitor hearing and have regular hearing assessments. * Pending medical clearance, call [phone] to schedule an appointment to assess your need for hearing aids. Request a HAE appointment. * Encouraged patient to reach out to insurance provider to determine if they are eligible for a hearing aid benefit. Patient was advised that if they return to [facility], the cost of hearing aids would likely be [id number]. Geo Albert, [facility] Clinical and Hearing Implant Top Lift Trimmer BUSTOS Abbrev- iation Definition Degree of hearing sensitivity dB range WNL within normal limits WNL 0 - 20 SNHL sensorineural hearing loss Mild 20-40 CHL conductive hearing loss Moderate 40-55 MHL mixed hearing loss Moderately-Severe 55-70 WRS word recognition score Severe 70-90 ME middle ear Profound 90 + TM tympanic membrane Meron Brooks, (more content not included)... Normal [facility] HEARING TEST/AUDIOGRAMon [facility] DBT Breast - bilateral scree ningon 12-03-2023 [facility] Absolute lymphocyte countOrd ered By: Will Fox on 11-30-2023 Lymphocytes Auto (Unsp spec) [#/Vol] 1.95 10*3/uL 0.83-4.51 [facility] Automated lymphocyte count a s percentage of total leukocytesOrdered By: Will Fox on 11-30-2023 Lymphocytes/100 WBC Auto (Unsp spec) 18.9 % 19-41 [facility] Basophil percentageOrdered B y: Will Fox on 11-30-2023 Basophil percentage 0 SEEN /hpf 0-5 [facility] Basophils/100 WBC (Bld) 0.6 % 0-1 [facility] Bilirubin [Mass/Vol] 0.40 mg/dL 0.20-1.00 [facility] Comment on above: For patients on eltr ombopag therapy, use of Dimension Lyme TBIL is not recommended. Chloride [Moles/Vol] 108 mmol/L 98-107 [facility] Eosinophils/100 WBC (Bld) 1.1 % 0-5 [facility] Glucose [Mass/Vol] 138 mg/dL 74-106 [facility] Comment on above: Fasting Glucose resu lt greater than or equal to 126 mg/dL suggests DIABETES MELLITUS per A.D.A. criteria. Hemoglobin (Bld) [Mass/Vol] 12.6 g/dL 12.0-15.0 [facility] Monocytes/100 WBC (Bld) 4.9 % 0-10 [facility] Neutrophils (Bld) [#/Vol] 7.6 10*3/uL 2.0-7.7 [facility] Neutrophils/100 WBC (Bld) 73.9 % 47-70 [facility] Potassium [Moles/Vol] 3.8 mmol/L 3.5-5.1 [facility] Protein [Mass/Vol] 7.8 g/dL 6.4-8.2 [facility] Sodium [Moles/Vol] 138 mmol/L 136-145 [facility] WBC (Bld) [#/Vol] 10.3 10*3/uL 4.4-11.0 [facility] Bilirubin Test strip Ql (U)O rdered By: Will Fox on 11-30-2023 Bilirubin Ql (U) Negative Negative [facility] Determination of erythrocyte mean corpuscular volume (MCV)Ordered By: Will Fox on 11-30-2023 MCV (RBC) [Entitic vol] 90.8 fL 81-99 [facility] Erythrocyte distribution wid th ratioOrdered By: Will Fox on 11-30-2023 Erythrocyte distribution width (RBC) [Ratio] 14.3 % 11.6-14.6 [facility] Erythrocyte distribution wid th standard deviationOrdered By: Will Fox on 11-30-2023 Erythrocyte distribution width (RBC) [Entitic vol] 47.2 fL 35.1-43.9 [facility] Hematocrit Auto (Bld) [Volum e fraction]Ordered By: Will Fox on 11-30-2023 Hematocrit (Bld) [Volume fraction] 38.4 % 37-47 [facility] Immature granulocytes/100 WB C Auto (Bld)Ordered By: Will Fox on 11-30-2023 Immature granulocytes/100 WBC (Bld) 0.600 % 0.0-0.9 [facility] Comment on above: IG% - Immature Granu locytes (promyelocytes, myelocytes and metamyelocytes) > 1% indicates that a LEFT SHIFT is Present. Ketones Test strip Ql (U)Ord ered By: Will Fox on 11-30-2023 Ketones Ql (U) Negative Negative [facility] Laboratory - Chemistry and C hemistry - challengeOrdered By: Will Fox on 11-30-2023 Albumin/Globulin [Mass ratio] 1.0 {ratio} 0.9-2.4 [facility] ALP [Catalytic activity/Vol] 59 U/L 45-117 [facility] ALT [Catalytic activity/Vol] 27 U/L 13-56 [facility] CO2 [Moles/Vol] 24.0 mmol/L 21.0-32.0 [facility] Globulin (S) [Mass/Vol] 3.9 g/dL 2.2-4.2 [facility] Urea nitrogen/Creatinine [Mass ratio] 16.1 mg/mg 10-20 [facility] - Hematology and Cell countsOrdered By: Will Fox on 11-30-2023 MCH (RBC) [Entitic mass] 29.8 pg 27.0-32.0 [facility] MCHC (RBC) [Mass/Vol] 32.8 g/dL 32-36 [facility] Nucleated RBC/100 WBC (Bld) [Ratio] 0 % 0-5 [facility] Platelet mean volume (Bld) [Entitic vol] 10.1 fL 6.2-12.0 [facility] Platelets (Bld) [#/Vol] 457 10*3/uL 150-450 [facility] Mucus LM Ql (Urine sed)Order ed By: Will Fox on 11-30-2023 Mucus Ql (Urine sed) 0 SEEN /hpf [facility] Nitrite Test strip Ql (U)Ord ered By: Will Fox on 11-30-2023 Nitrite Ql (U) Negative Negative [facility] No Panel InformationOrdered By: Will Fox on 11-30-2023 Urine RBC 10-25 SEEN /hpf 0-5 [facility] Estimated Creatinine Clearance Calc 105.21 ml/min [facility] Estimated GFR (MDRD) Amer 100 mL/min >60 [facility] Comment on above: GFR Calc Estimated GFR (MDRD) Non-Af Amer 83 mL/min >60 [facility] Comment on above: Non- GFR Calc Protein Test strip Ql (U)Ord ered By: Will Fox on 11-30-2023 Protein Ql (U) 15 mg/dl Negative [facility] RBC Auto (Bld) [#/Vol]Ordere d By: Will Fox on 11-30-2023 RBC (Bld) [#/Vol] 4.23 10*6/uL 4.2-5.4 [facility] Serum or plasma calcium pierre urement (mass/volume)Ordered By: Will Fox on 11-30-2023 Calcium [Mass/Vol] 9.2 mg/dL 8.5-10.1 [facility] Serum or plasma choriogonado tropin detectionOrdered By: Will Fox on 11-30-2023 HCG ( test) Ql Negative [facility] Serum or plasma creatinine m easurement (mass/volume)Ordered By: Will Fox on 11-30-2023 Creatinine [Mass/Vol] 0.80 mg/dL 0.55-1.02 [facility] Comment on above: The validity of the calculated GFR & GFRAA in patients over 70 years has not been determined. Clinical correlation is essential. Serum or plasma urea nitroge n measurement (mass/volume)Ordered By: Will Fox on 11-30-2023 Urea nitrogen [Mass/Vol] 13 mg/dL 7-18 [facility] Squamous epithelial cells de tection in urine sediment by light microscopyOrdered By: Will Fox on 11-30-2023 Epithelial cells.squamous LM Ql (Urine sed) 0-5 SEEN /hpf 5-10 [facility] Thin prep Papanicolaou smear with manual screeningOrdered By: Will Fox on 11-30-2023 Thin prep Papanicolaou smear with manual screening 3.9 g/dL 3.2-5.0 [facility] Thin prep Papanicolaou smear with manual screening 13 U/L 15-37 [facility] Thin prep Papanicolaou smear with manual screening 6 5-15 [facility] Urine blood detectionOrdered By: Will Fox on 11-30-2023 RBC Ql (U) 250 /ul Negative [facility] Urine clarityOrdered By: Rishi Fox on 11-30-2023 Clarity (U) Clear Clear [facility] Urine color determinationOrd ered By: Will Fox on 11-30-2023 Color (U) Yellow Yellow [facility] Urine glucose detectionOrder ed By: Will Fox on 11-30-2023 Glucose Ql (U) Normal mg/dl Normal [facility] Urine leukocyte esterase det ection by dipstickOrdered By: Will Fox on 11-30-2023 Leukocyte esterase Test strip Ql (U) Negative Negative [facility] Urine pHOrdered By: Will Stone ghcorinne on 11-30-2023 pH (U) 7.0 [pH] 5.0 - 8.0 [facility] Urine sediment bacteria coun t by microscopy (number/high power field)Ordered By: Will Fox on 11-30-2023 Bacteria LM.HPF (Urine sed) [#/Area] 0 /[HPF] None Seen [facility] Urine specific gravity measu rementOrdered By: Will Fox on 11-30-2023 Specific gravity (U) [Rel density] 1.010 1.002-1.030 [facility] Urine urobilinogen measureme ntOrdered By: Will Fox on 11-30-2023 Urobilinogen Ql (U) Normal mg/dl Normal [facility] Absolute lymphocyte countOrd ered By: Wanda Burrows on 11-24-2023 Lymphocytes Auto (Unsp spec) [#/Vol] 1.57 10*3/uL 0.83-4.51 [facility] Automated lymphocyte count a s percentage of total leukocytesOrdered By: Wanda Burrows on 11-24-2023 Lymphocytes/100 WBC Auto (Unsp spec) 19.3 % 19-41 [facility] Basophil percentageOrdered B y: Wanda Burrows on 11-24-2023 Basophils/100 WBC (Bld) 0.5 % 0-1 [facility] Bilirubin [Mass/Vol] 0.40 mg/dL 0.20-1.00 [facility] Comment on above: For patients on eltr ombopag therapy, use of Dimension Lyme TBIL is not recommended. Chloride [Moles/Vol] 107 mmol/L 98-107 [facility] Eosinophils/100 WBC (Bld) 2.9 % 0-5 [facility] Glucose [Mass/Vol] 92 mg/dL 74-106 [facility] Hemoglobin (Bld) [Mass/Vol] 13.2 g/dL 12.0-15.0 [facility] Monocytes/100 WBC (Bld) 9.3 % 0-10 [facility] Neutrophils (Bld) [#/Vol] 5.5 10*3/uL 2.0-7.7 [facility] Neutrophils/100 WBC (Bld) 67.8 % 47-70 [facility] Potassium [Moles/Vol] 4.1 mmol/L 3.5-5.1 [facility] Protein [Mass/Vol] 8.0 g/dL 6.4-8.2 [facility] Sodium [Moles/Vol] 138 mmol/L 136-145 [facility] WBC (Bld) [#/Vol] 8.1 10*3/uL 4.4-11.0 [facility] Determination of erythrocyte mean corpuscular volume (MCV)Ordered By: Wanda Burrows on 11-24-2023 MCV (RBC) [Entitic vol] 92.5 fL 81-99 [facility] Erythrocyte distribution wid th ratioOrdered By: [facility] Markos on 11-24-2023 Erythrocyte distribution width (RBC) [Ratio] 14.1 % 11.6-14.6 [facility] Erythrocyte distribution wid th standard deviationOrdered By: [facility] Markos on 11-24-2023 Erythrocyte distribution width (RBC) [Entitic vol] 48.1 fL 35.1-43.9 [facility] Hematocrit Auto (Bld) [Volum e fraction]Ordered By: Wanda Burrows on 11-24-2023 Hematocrit (Bld) [Volume fraction] 40.7 % 37-47 [facility] Immature granulocytes/100 WB C Auto (Bld)Ordered By: Wanda Burrows on 11-24-2023 Immature granulocytes/100 WBC (Bld) 0.200 % 0.0-0.9 [facility] Comment on above: IG% - Immature Granu locytes (promyelocytes, myelocytes and metamyelocytes) > 1% indicates that a LEFT SHIFT is Present. Laboratory - Chemistry and C hemistry - challengeOrdered By: Wanda Burrows on 11-24-2023 Albumin/Globulin [Mass ratio] 1.0 {ratio} 0.9-2.4 [facility] ALP [Catalytic activity/Vol] 62 U/L 45-117 [facility] ALT [Catalytic activity/Vol] 32 U/L 13-56 [facility] CO2 [Moles/Vol] 27.0 mmol/L 21.0-32.0 [facility] Globulin (S) [Mass/Vol] 4.1 g/dL 2.2-4.2 [facility] Urea nitrogen/Creatinine [Mass ratio] 16.3 mg/mg 10-20 [facility] Laboratory - Hematology and Cell countsOrdered By: Wanda Burrows on 11-24-2023 MCH (RBC) [Entitic mass] 30.0 pg 27.0-32.0 [facility] MCHC (RBC) [Mass/Vol] 32.4 g/dL 32-36 [facility] Nucleated RBC/100 WBC (Bld) [Ratio] 0 % 0-5 [facility] Platelet mean volume (Bld) [Entitic vol] 10.2 fL 6.2-12.0 [facility] Platelets (Bld) [#/Vol] 377 10*3/uL 150-450 [facility] No Panel InformationOrdered By: Wanda Burrows on 11-24-2023 Estimated GFR (MDRD) Amer 122 mL/min >60 [facility] Comment on above: GFR Calc Estimated GFR (MDRD) Non-Af Amer 101 mL/min >60 [facility] Comment on above: Non- GFR Calc RBC Auto (Bld) [#/Vol]Ordere d By: Wanda Burrows on 11-24-2023 RBC (Bld) [#/Vol] 4.40 10*6/uL 4.2-5.4 [facility] Serum or plasma calcium pierre urement (mass/volume)Ordered By: Wanda Burrows on 11-24-2023 Calcium [Mass/Vol] 9.1 mg/dL 8.5-10.1 [facility] Serum or plasma creatinine m easurement (mass/volume)Ordered By: Wanda Burrows on 11-24-2023 Creatinine [Mass/Vol] 0.68 mg/dL 0.55-1.02 [facility] Comment on above: The validity of the calculated GFR & GFRAA in patients over 70 years has not been determined. Clinical correlation is essential. Serum or plasma urea nitroge n measurement (mass/volume)Ordered By: Wanda Burrows on 11-24-2023 Urea nitrogen [Mass/Vol] 11 mg/dL 7-18 [facility] Thin prep Papanicolaou smear with manual screeningOrdered By: Wanda Burrows on 11-24-2023 Thin prep Papanicolaou smear with manual screening 3.9 g/dL 3.2-5.0 [facility] Thin prep Papanicolaou smear with manual screening 21 U/L 15-37 [facility] Thin prep Papanicolaou smear with manual screening 4 5-15 [facility] Absolute lymphocyte countOrd ered By: Wanda Burrows on 09-28-2023 Lymphocytes Auto (Unsp spec) [#/Vol] 2.48 10*3/uL 0.83-4.51 [facility] Basophil percentageOrdered B y: Wanda Burrows on 09-28-2023 Basophils/100 WBC (Bld) 1.0 % 0-1 [facility] Bilirubin [Mass/Vol] 0.50 mg/dL 0.20-1.00 [facility] Comment on above: For patients on eltr ombopag therapy, use of Dimension Lyme TBIL is not recommended. Chloride [Moles/Vol] 104 mmol/L 98-107 [facility] Eosinophils/100 WBC (Bld) 2.4 % 0-5 [facility] Glucose [Mass/Vol] 77 mg/dL 74-106 [facility] Neutrophils (Bld) [#/Vol] 3.6 10*3/uL 2.0-7.7 [facility] Neutrophils/100 WBC (Bld) 51.0 % 47-70 [facility] Potassium [Moles/Vol] 4.2 mmol/L 3.5-5.1 [facility] Protein [Mass/Vol] 7.5 g/dL 6.4-8.2 [facility] Sodium [Moles/Vol] 138 mmol/L 136-145 [facility] WBC (Bld) [#/Vol] 7.0 10*3/uL 4.4-11.0 [facility] Blood erythrocytes count (nu mber/volume)Ordered By: Wanda Burrows on 09-28-2023 RBC (Bld) [#/Vol] 4.15 10*6/uL 4.2-5.4 [facility] Blood hemoglobin measurement (mass/volume)Ordered By: Wanda Burrows on 09-28-2023 Hemoglobin (Bld) [Mass/Vol] 12.2 g/dL 12.0-15.0 [facility] Blood lymphocytes/100 leukoc ytesOrdered By: Wanda Burrows on 09-28-2023 Lymphocytes/100 WBC (Bld) 35.3 % 19-41 [facility] Blood monocytes/100 leukocyt esOrdered By: Wanda Burrows on 09-28-2023 Monocytes/100 WBC (Bld) 10.0 % 0-10 [facility] Blood platelet mean volumeOr dered By: Wanda Burrows on 09-28-2023 Platelet mean volume (Bld) [Entitic vol] 10.7 fL 6.2-12.0 [facility] Determination of erythrocyte mean corpuscular volume (MCV)Ordered By: Wanda Burrows on 09-28-2023 MCV (RBC) [Entitic vol] 93.5 fL 81-99 [facility] Hematocrit Auto (Bld) [Volum e fraction]Ordered By: Wanda Burrows on 09-28-2023 Hematocrit (Bld) [Volume fraction] 38.8 % 37-47 [facility] Laboratory - Chemistry and C hemistry - challengeOrdered By: Wandanadine Burrows on 09-28-2023 ALP [Catalytic activity/Vol] 64 U/L 45-117 [facility] ALT [Catalytic activity/Vol] 31 U/L 13-56 [facility] CO2 [Moles/Vol] 27.0 mmol/L 21.0-32.0 [facility] Globulin (S) [Mass/Vol] 3.8 g/dL 2.2-4.2 [facility] Urea nitrogen/Creatinine [Mass ratio] 17.7 mg/mg 10-20 [facility] - Hematology and Cell countsOrdered By: Wanda Burrows on 09-28-2023 Erythrocyte distribution width (RBC) [Entitic vol] 46.2 fL 35.1-43.9 [facility] Erythrocyte distribution width (RBC) [Ratio] 13.5 % 11.6-14.6 [facility] Immature granulocytes/100 WBC (Bld) 0.300 % 0.0-0.9 [facility] Comment on above: IG% - Immature Granu locytes (promyelocytes, myelocytes and metamyelocytes) > 1% indicates that a LEFT SHIFT is Present. MCH (RBC) [Entitic mass] 29.4 pg 27.0-32.0 [facility] Nucleated RBC/100 WBC (Bld) [Ratio] 0 % 0-5 [facility] MCHC Auto (RBC) [Mass/Vol]Or dered By: Wanda Burrows on 09-28-2023 MCHC (RBC) [Mass/Vol] 31.4 g/dL 32-36 [facility] No Panel InformationOrdered By: Wanda Burrows on 09-28-2023 Estimated GFR (MDRD) Amer 122 mL/min >60 [facility] Comment on above: GFR Calc Estimated GFR (MDRD) Non-Af Amer 101 mL/min >60 [facility] Comment on above: Non- GFR Calc Platelets bldOrdered By: Ge Burrows on 09-28-2023 Platelets (Bld) [#/Vol] 419 10*3/uL 150-450 [facility] Serum or plasma albumin pierre urement (mass/volume)Ordered By: Wanda Burrows on 09-28-2023 Albumin [Mass/Vol] 3.7 g/dL 3.2-5.0 [facility] Serum or plasma albumin/glob ulin mass ratioOrdered By: Wanda Burrows on 09-28-2023 Albumin/Globulin [Mass ratio] 1.0 {ratio} 0.9-2.4 [facility] Serum or plasma calcium pierre urement (mass/volume)Ordered By: Wanda Burrows on 09-28-2023 Calcium [Mass/Vol] 8.5 mg/dL 8.5-10.1 [facility] Serum or plasma creatinine m easurement (mass/volume)Ordered By: Wanda Burrows on 09-28-2023 Creatinine [Mass/Vol] 0.68 mg/dL 0.55-1.02 [facility] Comment on above: The validity of the calculated GFR & GFRAA in patients over 70 years has not been determined. Clinical correlation is essential. Serum or plasma urea nitroge n measurement (mass/volume)Ordered By: Wanda Burrows on 09-28-2023 Urea nitrogen [Mass/Vol] 12 mg/dL 7-18 [facility] Thin prep Papanicolaou smear with manual screeningOrdered By: Wanda Burrows on 09-28-2023 Thin prep Papanicolaou smear with manual screening 21 U/L 15-37 [facility] Thin prep Papanicolaou smear with manual screening 7 5-15 [facility] Laboratory - Microbiology an d Antimicrobial susceptibilityon 09-09-2023 SARS-CoV-2 (COVID-19) RNA STEVE+probe Ql (Unsp spec) Not detected [facility] No Panel Informationon 09-09 Influenza Types A,B Rapid (Clinic) Detected [facility] Absolute lymphocyte countOrd ered By: Wanda Burrows on 07-24-2023 Lymphocytes Auto (Unsp spec) [#/Vol] 2.24 10*3/uL 0.83-4.51 [facility] Basophil percentageOrdered B y: Wanda Burrows on 07-24-2023 Basophils/100 WBC (Bld) 1.0 % 0-1 [facility] Bilirubin [Mass/Vol] 0.40 mg/dL 0.20-1.00 [facility] Comment on above: For patients on eltr ombopag therapy, use of Dimension Lyme TBIL is not recommended. Chloride [Moles/Vol] 104 mmol/L 98-107 [facility] Eosinophils/100 WBC (Bld) 1.8 % 0-5 [facility] Glucose [Mass/Vol] 83 mg/dL 74-106 [facility] Neutrophils (Bld) [#/Vol] 5.2 10*3/uL 2.0-7.7 [facility] Neutrophils/100 WBC (Bld) 62.4 % 47-70 [facility] Potassium [Moles/Vol] 4.1 mmol/L 3.5-5.1 [facility] Protein [Mass/Vol] 8.1 g/dL 6.4-8.2 [facility] Sodium [Moles/Vol] 136 mmol/L 136-145 [facility] WBC (Bld) [#/Vol] 8.3 10*3/uL 4.4-11.0 [facility] Blood erythrocytes count (nu mber/volume)Ordered By: Wanda Burrows on 07-24-2023 RBC (Bld) [#/Vol] 4.50 10*6/uL 4.2-5.4 [facility] Blood hemoglobin measurement (mass/volume)Ordered By: Wanda Burrows on 07-24-2023 Hemoglobin (Bld) [Mass/Vol] 13.1 g/dL 12.0-15.0 [facility] Blood lymphocytes/100 leukoc ytesOrdered By: Wanda Burrows on 07-24-2023 Lymphocytes/100 WBC (Bld) 27.1 % 19-41 [facility] Blood monocytes/100 leukocyt esOrdered By: Wanda Burrows on 07-24-2023 Monocytes/100 WBC (Bld) 7.3 % 0-10 [facility] Blood platelet mean volumeOr dered By: Wanda Burrows on 07-24-2023 Platelet mean volume (Bld) [Entitic vol] 10.8 fL 6.2-12.0 [facility] Determination of erythrocyte mean corpuscular volume (MCV)Ordered By: Wanda Burrows on 07-24-2023 MCV (RBC) [Entitic vol] 91.3 fL 81-99 [facility] Erythrocyte sedimentation ra teOrdered By: Wanda Burrows on 07-24-2023 ESR (Bld) [Velocity] 17 mm/h 0-30 [facility] Hematocrit Auto (Bld) [Volum e fraction]Ordered By: Wanda Burrows on 07-24-2023 Hematocrit (Bld) [Volume fraction] 41.1 % 37-47 [facility] - Chemistry and C hemistry - challengeOrdered By: Wanda Burrows on 07-24-2023 ALP [Catalytic activity/Vol] 62 U/L 45-117 [facility] ALT [Catalytic activity/Vol] 24 U/L 13-56 [facility] CO2 [Moles/Vol] 27.0 mmol/L 21.0-32.0 [facility] Globulin (S) [Mass/Vol] 4.2 g/dL 2.2-4.2 [facility] Urea nitrogen/Creatinine [Mass ratio] 27.6 mg/mg 10-20 [facility] - Hematology and Cell countsOrdered By: Wanda Burrows on 07-24-2023 Erythrocyte distribution width (RBC) [Entitic vol] 45.1 fL 35.1-43.9 [facility] Erythrocyte distribution width (RBC) [Ratio] 13.4 % 11.6-14.6 [facility] Immature granulocytes/100 WBC (Bld) 0.400 % 0.0-0.9 [facility] Comment on above: IG% - Immature Granu locytes (promyelocytes, myelocytes and metamyelocytes) > 1% indicates that a LEFT SHIFT is Present. MCH (RBC) [Entitic mass] 29.1 pg 27.0-32.0 [facility] Nucleated RBC/100 WBC (Bld) [Ratio] 0 % 0-5 [facility] MCHC Auto (RBC) [Mass/Vol]Or dered By: Wanda Burrows on 07-24-2023 MCHC (RBC) [Mass/Vol] 31.9 g/dL 32-36 [facility] No Panel InformationOrdered By: Wanda Burrows on 07-24-2023 Anti-Nuclear Antibody Screen Negative Negative [facility] Comment on above: Performed at: [address] [id number] Director: Henri Garcia PhD, Phone: [phone] Estimated GFR (MDRD) Amer 128 mL/min >60 [facility] Comment on above: GFR Calc Estimated GFR (MDRD) Non-Af Amer 105 mL/min >60 [facility] Comment on above: Non- GFR Calc Hepatitis B Surface Antigen Non-Reactive Nonreactive [facility] Hepatitis C Antibody Non-Reactive Nonreactive [facility] Comment on above: Non Reactive: < 0.8 Equivocal: >/= 0.8 to < 1.0 Reactive: >/= 1.0The CDC recommends that a reactive/equivocal HCV antibody result be followed up by the HCV Nucleic Acid Amplificationtest (152273) Platelets bldOrdered By: Ge Burrows on 07-24-2023 Platelets (Bld) [#/Vol] 434 10*3/uL 150-450 [facility] Serum cyclic citrullinated p eptide IgG antibody assay (units/volume)Ordered By: Wanda Burrows on 07-24-2023 Cyclic citrullinated peptide IgG Qn 3 units 0-19 [facility] Comment on above: Negative <20 Weak po sitive 20 - 39 Moderate positive 40 - 59 Strong positive >59Performed at: [employer] [id number] Director: Henri Garcia PhD, Phone: [phone] Serum hepatitis B virus surf willam antibody IgG detectionOrdered By: Wanda Burrows on 07-24-2023 HBV surface IgG Ql (S) Non-Reactive [facility] Comment on above: Non Reactive: Incons istent with immunity less than <10 mIU/mL Reactive: Consistent with immunity greater than or equal to 10 mIU/mL Serum or plasma C reactive p rotein measurement (mass/volume)Ordered By: Wanda Burrows on 07-24-2023 CRP [Mass/Vol] 6.30 mg/L 0.0-3.0 [facility] Comment on above: C-Reactive Protein ( CRP) provides useful information for thediagnosis, therapy and monitoring of inflammatory processesand associated diseases. For the evaluation of Relative Riskfor Cardiovascular Disease, a High Sensitivity CRP (HSCRP)should be ordered. Serum or plasma albumin pierre urement (mass/volume)Ordered By: Wanda Burrows on 07-24-2023 Albumin [Mass/Vol] 3.9 g/dL 3.2-5.0 [facility] Serum or plasma albumin/glob ulin mass ratioOrdered By: Wanda Burrows on 07-24-2023 Albumin/Globulin [Mass ratio] 0.9 {ratio} 0.9-2.4 [facility] Serum or plasma calcium pierre urement (mass/volume)Ordered By: Wanda Burrows on 07-24-2023 Calcium [Mass/Vol] 8.7 mg/dL 8.5-10.1 [facility] Serum or plasma creatinine m easurement (mass/volume)Ordered By: Wanda Burrows on 07-24-2023 Creatinine [Mass/Vol] 0.65 mg/dL 0.55-1.02 [facility] Comment on above: The validity of the calculated GFR & GFRAA in patients over 70 years has not been determined. Clinical correlation is essential. Serum or plasma urea nitroge n measurement (mass/volume)Ordered By: Wanda Burrows on 07-24-2023 Urea nitrogen [Mass/Vol] 18 mg/dL 7-18 [facility] Serum rheumatoid factor dete ctionOrdered By: Wanda Burrows on 07-24-2023 Rheumatoid factor Ql (S) < 10.0 IU/mL <15 [facility] Thin prep Papanicolaou smear with manual screeningOrdered By: Wanda Burrows on 07-24-2023 Thin prep Papanicolaou smear with manual screening 15 U/L 15-37 [facility] Thin prep Papanicolaou smear with manual screening 5 5-15 [facility] Absolute lymphocyte countOrd ered By: Lesa Us on 04-16-2023 Lymphocytes Auto (Unsp spec) [#/Vol] 2.89 10*3/uL 0.83-4.51 [facility] Basophil percentageOrdered B y: Lesa Us on 04-16-2023 Basophils/100 WBC (Bld) 0.8 % 0-1 [facility] Bilirubin [Mass/Vol] 0.40 mg/dL 0.20-1.00 [facility] Comment on above: For patients on eltr ombopag therapy, use of Dimension Lyme TBIL is not recommended. Chloride [Moles/Vol] 107 mmol/L 98-107 [facility] Cholesterol [Mass/Vol] 213 mg/dL <200 [facility] Comment on above: <200 mg/dL Desirable 200-240 mg/dL Borderline >240 mg/dL High Risk Eosinophils/100 WBC (Bld) 2.4 % 0-5 [facility] Glucose [Mass/Vol] 89 mg/dL 74-106 [facility] Neutrophils (Bld) [#/Vol] 3.6 10*3/uL 2.0-7.7 [facility] Neutrophils/100 WBC (Bld) 48.4 % 47-70 [facility] Potassium [Moles/Vol] 4.0 mmol/L 3.5-5.1 [facility] Protein [Mass/Vol] 7.8 g/dL 6.4-8.2 [facility] Sodium [Moles/Vol] 136 mmol/L 136-145 [facility] Triglyceride [Mass/Vol] 136 mg/dL <199 [facility] Comment on above: The drugs N-Acetylcy steine and Metamizole may falsely depress this assay.Serum Triglycerides Reference Interval Normal <150 mg/dL Borderline high 150 - 199 mg/dL High 200 - 499 mg/dL Very High > or = 500 mg/dL WBC (Bld) [#/Vol] 7.4 10*3/uL 4.4-11.0 [facility] Blood erythrocytes count (nu mber/volume)Ordered By: Lesa Us on 04-16-2023 RBC (Bld) [#/Vol] 4.56 10*6/uL 4.2-5.4 [facility] Blood hemoglobin measurement (mass/volume)Ordered By: Lesa Us on 04-16-2023 Hemoglobin (Bld) [Mass/Vol] 12.8 g/dL 12.0-15.0 [facility] Blood lymphocytes/100 leukoc ytesOrdered By: Lesa Us on 04-16-2023 Lymphocytes/100 WBC (Bld) 39.3 % 19-41 [facility] Blood monocytes/100 leukocyt esOrdered By: Lesa Us on 04-16-2023 Monocytes/100 WBC (Bld) 8.8 % 0-10 [facility] Blood platelet mean volumeOr dered By: Lesa Us on 04-16-2023 Platelet mean volume (Bld) [Entitic vol] 10.1 fL 6.2-12.0 [facility] Determination of erythrocyte mean corpuscular volume (MCV)Ordered By: Lesa Us on 04-16-2023 MCV (RBC) [Entitic vol] 91.2 fL 81-99 [facility] Hematocrit Auto (Bld) [Volum e fraction]Ordered By: Lesa Us on 04-16-2023 Hematocrit (Bld) [Volume fraction] 41.6 % 37-47 [facility] - Chemistry and C hemistry - challengeOrdered By: Lesa Us on 04-16-2023 ALP [Catalytic activity/Vol] 64 U/L 45-117 [facility] ALT [Catalytic activity/Vol] 19 U/L 13-56 [facility] CO2 [Moles/Vol] 26.0 mmol/L 21.0-32.0 [facility] Free T4 [Mass/Vol] 0.89 ng/dL 0.76-1.46 [facility] Globulin (S) [Mass/Vol] 4.1 g/dL 2.2-4.2 [facility] Urea nitrogen/Creatinine [Mass ratio] 17.4 mg/mg 10-20 [facility] - Hematology and Cell countsOrdered By: Lesa Us on 04-16-2023 Erythrocyte distribution width (RBC) [Entitic vol] 45.0 fL 35.1-43.9 [facility] Erythrocyte distribution width (RBC) [Ratio] 13.4 % 11.6-14.6 [facility] Immature granulocytes/100 WBC (Bld) 0.300 % 0.0-0.9 [facility] Comment on above: IG% - Immature Granu locytes (promyelocytes, myelocytes and metamyelocytes) > 1% indicates that a LEFT SHIFT is Present. MCH (RBC) [Entitic mass] 28.1 pg 27.0-32.0 [facility] Nucleated RBC/100 WBC (Bld) [Ratio] 0 % 0-5 [facility] MCHC Auto (RBC) [Mass/Vol]Or dered By: Lesa Us on 04-16-2023 MCHC (RBC) [Mass/Vol] 30.8 g/dL 32-36 [facility] No Panel InformationOrdered By: Lesa Us on 04-16-2023 Estimated GFR (MDRD) Amer 109 mL/min >60 [facility] Comment on above: GFR Calc Estimated GFR (MDRD) Non-Af Amer 90 mL/min >60 [facility] Comment on above: Non- GFR Calc Thyroid Stimulating Hormone (TSH) 3.57 uIU/mL 0.358-3.74 [facility] Vitamin D 25-Hydroxy 47.7 ng/mL [facility] Comment on above: Vitamin D 25(OH) Sta tus Range Deficiency <20 ng/mL (50nmol/L) Insufficiency 20 - 30 ng/mL (50 - 75 nmol/L) Sufficiency 30 - 100 ng/mL (75 - 250 nmol/L) Toxicity >100 ng/mL (>250 nmol/L) Platelets bldOrdered By: Iona Us on 04-16-2023 Platelets (Bld) [#/Vol] 363 10*3/uL 150-450 [facility] Serum or plasma albumin pierre urement (mass/volume)Ordered By: Lesa Us on 04-16-2023 Albumin [Mass/Vol] 3.7 g/dL 3.2-5.0 [facility] Serum or plasma albumin/glob ulin mass ratioOrdered By: Lesa Us 04-16-2023 Albumin/Globulin [Mass ratio] 0.9 {ratio} 0.9-2.4 [facility] Serum or plasma calcium pierre urement (mass/volume)Ordered By: Lesa Us on 04-16-2023 Calcium [Mass/Vol] 8.6 mg/dL 8.5-10.1 [facility] Serum or plasma cholesterol in HDL measurement (mass/volume)Ordered By: Lesa Us on 04-16-2023 Cholesterol in HDL [Mass/Vol] 67 mg/dL >40 [facility] Comment on above: The drugs N-Acetylcy steine and Metamizole may falsely depress this assay. Reference Range HDL <40 mg/dL Low HDL Cholesterol HDL >or= 60 mg/dL High HDL Cholesterol Serum or plasma cholesterol in VLDL measurement (mass/volume)Ordered By: Lesa Us on 04-16-2023 Cholesterol in VLDL [Mass/Vol] 27 mg/dL 5-40 [facility] Serum or plasma creatinine m easurement (mass/volume)Ordered By: Lesa Us 04-16-2023 Creatinine [Mass/Vol] 0.75 mg/dL 0.55-1.02 [facility] Comment on above: The validity of the calculated GFR & GFRAA in patients over 70 years has not been determined. Clinical correlation is essential. Serum or plasma low density lipoprotein (LDL) cholesterol measurement (mass/volume)Ordered By: Lesa Us on 04-16-2023 Cholesterol in LDL [Mass/Vol] 119 mg/dL 0-130 [facility] Serum or plasma urea nitroge n measurement (mass/volume)Ordered By: Lesaheaven Us on 04-16-2023 Urea nitrogen [Mass/Vol] 13 mg/dL 7-18 [facility] Thin prep Papanicolaou smear with manual screeningOrdered By: Lesa Us on 04-16-2023 Thin prep Papanicolaou smear with manual screening 14 U/L 15-37 [facility] Thin prep Papanicolaou smear with manual screening 3 5-15 [facility] ROBINA SCREENING W Darlene 09-15 [facility] LIPID PANEL ([id number])Ordered B y: Fish Conservationist on 09-06-2016 Cholesterol in HDL mass conc 56 mg/dL Normal [facility] Work Phone: Cholesterol in LDL mass conc 123 mg/dL Abnormal 0-99 [facility] Work Phone: Cholesterol in LDL/Cholesterol in HDL mass ratio 2.2 {ratio_units} Normal 0.0-3.2 [facility] Work Phone: Comment on above: LDL/HDL Ratio Men Wo men 1/2 Avg.Risk 1.0 1.5 Avg.Risk 3.6 3.2 2X Avg.Risk 6.2 5.0 3X Avg.Risk 8.0 6.1 Cholesterol in VLDL mass conc 23 mg/dL Normal 5-40 [facility] Work Phone: Cholesterol mass conc 202 mg/dL Abnormal 100-199 [facility] Work Phone: Triglyceride mass conc 114 mg/dL Normal 0-149 [facility] Work Phone: Cytology Request ProblemOrde red By: Fish Conservationist on 07-21-2015 Protein mass conc COMMNT Normal [facility] Work Phone: Comment on above: Test not performed. This liquid-based pap was submitted in a vial thatexpired according to the patient advocate's label. .Please contact your [employer] business banking sales assistant to obtain new vialsand make arrangements for the return of any vials.HPV TESTING NOT PERFORMED DUE TO VIAL EXPIRING 06/24/2015. NOTIFIEDCHRISSY T AT ACCOUNT 07/27/15 IGP, Aptima HPV, rfx 16/18,4 5Ordered By: Fish Conservationist on 07-21-2015 Microscopic observation Other stain Nom (Unsp spec) . Normal [facility] Work Phone: Pathology report final diagnosis Narrative SPRCS Normal [facility] Work Phone: Comment on above: NEGATIVE FOR INTRAEP ITHELIAL LESION AND MALIGNANCY.Satisfactory for evaluation. Endocervical and/or squamous metaplasticcells (endocervical component) are present.V72.31Analia Galicia, Refrigeration Service Inspector (ASCP) IGP, Aptima HPV, rfx 16/18,45 PAPSMR Normal [facility] Work Phone: Comment on above: The Pap smear is a s creening test designed to aid in the detection ofpremalignant and malignant conditions of the uterine cervix. It is not adiagnostic procedure and should not be used as the sole means of detectingcervical cancer. Both false-positive and false-negative reports do occur. .This liquid based ThinPrep(R) pap test was screened with theuse of an image guided system. LIPID PANEL ([id number])Ordered B y: Fish Conservationist on 07-21-2015 Cholesterol in HDL mass conc 65 mg/dL Normal [facility] Work Phone: Comment on above: According to ATP-III Guidelines, HDL-C >59 mg/dL is considered anegative risk factor for CHD. Cholesterol in LDL mass conc 124 mg/dL Abnormal 0-99 [facility] Work Phone: Comment on above: Effective July 26, 2015 the reference interval for LDL Cholesterol Calc will be changing to: 0 - 19 years 0 - 109 >19 years 0 - 99 Cholesterol in LDL/Cholesterol in HDL mass ratio 1.9 {ratio_units} Normal 0.0-3.2 [facility] Work Phone: Comment on above: LDL/HDL Ratio Men Wo men 1/2 Avg.Risk 1.0 1.5 Avg.Risk 3.6 3.2 2X Avg.Risk 6.2 5.0 3X Avg.Risk 8.0 6.1 Cholesterol in VLDL mass conc 23 mg/dL Normal 5-40 [facility] Work Phone: Cholesterol mass conc 212 mg/dL Abnormal 100-199 [facility] Work Phone: Comment on above: Effective July 26, 2015 the reference interval for Cholesterol, Total will be changing to: 0 - 19 years 100 - 169 >19 years 100 - 199 Triglyceride mass conc 116 mg/dL Normal 0-149 [facility] Work Phone: Comment on above: Effective July 26, 2015 the reference interval for Triglycerides will be changing to: 0 - 9 years 0 - 74 10 - 19 years 0 - 89 >19 years 0 - 149 Thin prep Pap ([id number]) (no ST D testing)Ordered By: Fish Conservationist on 07-21-2015 Thin prep Pap ([id number]) (no STD testing) 30-65 Normal [facility] Work Phone: URINE EDWAR CULTURE-RENE COL C OUNT ([id number])Ordered By: Fish Conservationist on 11-09-2014 Bacteria identified Cx Nom (U) MUG Normal [facility] Work Phone: Comment on above: Mixed urogenital elio ra50,000-100,000 colony forming units per mL Bacteria identified Cx Nom (U) Final report Normal [facility] Work Phone: Urinalysis, Office ([id number])Or dered By: Thania Jefferson on 11-09-2014 Bilirubin Ql (U) Negative Normal [facility] Work Phone: Glucose Test strip mass conc (U) Negative Normal [facility] Work Phone: Hemoglobin Test strip Ql (U) Non Hemolyzed Trace Normal [facility] Work Phone: Ketones Ql (U) Negative Normal [facility] Work Phone: Leukocyte esterase Test strip Ql (U) Negative Normal [facility] Work Phone: Nitrite Test strip Ql (U) Negative Normal [facility] Work Phone: pH Test strip (U) 7 [pH] Normal [facility] Work Phone: Protein Test strip Ql (U) Negative Normal [facility] Work Phone: Specific gravity Relative Density (U) 1.010 1 Normal [facility] Work Phone: Urobilinogen mass/time (24H U) Normal Normal [facility] Work Phone: GLUCOSE ([id number])Ordered By: S ystem Director [employer] on 05-21-2014 Glucose mass conc 76 mg/dL Normal 65-99 [facility] Work Phone: LIPID PANEL ([id number])Ordered B y: Fish Conservationist on 05-21-2014 Cholesterol in HDL mass conc 64 mg/dL Normal [facility] Work Phone: Comment on above: According to ATP-III Guidelines, HDL-C >59 mg/dL is considered anegative risk factor for CHD. Cholesterol in LDL mass conc 113 mg/dL Abnormal 0-99 [facility] Work Phone: Cholesterol in LDL/Cholesterol in HDL mass ratio 1.8 {ratio_units} Normal 0.0-3.2 [facility] Work Phone: Cholesterol in VLDL mass conc 13 mg/dL Normal 5-40 [facility] Work Phone: Cholesterol mass conc 190 mg/dL Normal 100-199 [facility] Work Phone: Triglyceride mass conc 65 mg/dL Normal 0-149 [facility] Work Phone: Thin prep Pap ([id number]) (no ST D testing)Ordered By: Fish Conservationist on 05-08-2014 Microscopic observation Other stain Nom (Unsp spec) . Normal [facility] Work Phone: Pathology report final diagnosis Narrative [facility] Normal [facility] Work Phone: Comment on above: NEGATIVE FOR INTRAEP ITHELIAL LESION AND MALIGNANCY.Satisfactory for evaluation. Endocervical and/or squamous metaplasticcells (endocervical component) are present.V70.0 ; Routine general medical examination at health care [id number] ; Routine gynecological examinationSybil Pugh Refrigeration Service Inspector (ASCP) Thin prep Pap ([id number]) (no STD testing) PAPSMR Normal [facility] Work Phone: Comment on above: The Pap smear is a s creening test designed to aid in the detection ofpremalignant and malignant conditions of the uterine cervix. It is not adiagnostic procedure and should not be used as the sole means of detectingcervical cancer. Both false-positive and false-negative reports do occur. .This liquid based ThinPrep(R) pap test was screened with theuse of an image guided system.The HPV DNA reflex criteria were not met with this specimen resulttherefore, no HPV testing was performed. . HPV automatic ([id number])Ordered By: Fish Conservationist on 04-22-2013 HPV 16+18+31+33+35+39+45+5 1+52+56+58+59+68 DNA Probe+sig amp Ql (Cvx) Negative Normal [facility] Work Phone: Comment on above: This high-risk HPV t est detects thirteen high-risk types(16/18/31/33/35/39/45/51/52/56/58/59/68) without differentiation. . Microscopic observation Other stain Nom (Unsp spec) . Normal [facility] Work Phone: Pathology report final diagnosis Narrative [facility] Normal [facility] Work Phone: Comment on above: NEGATIVE FOR INTRAEP ITHELIAL LESION AND MALIGNANCY.CELLULAR CHANGES ASSOCIATED WITH INFLAMMATION ARE PRESENT.Satisfactory for evaluation. Endocervical and/or squamous metaplasticcells (endocervical component) are present.V70.0 ; Routine general medical examination at health care facilityJeniffer Roach Refrigeration Service Inspector (ASCP) HPV automatic ([id number]) PAPSMR Normal [facility] Work Phone: Comment on above: The Pap smear is a s creening test designed to aid in the detection ofpremalignant and malignant conditions of the uterine cervix. It is not adiagnostic procedure and should not be used as the sole means of detectingcervical cancer. Both false-positive and false-negative reports do occur. .This liquid based ThinPrep(R) pap test was screened with theuse of an image guided system. Lipid Panel ([id number])Ordered B y: Fish Conservationist on 03-27-2013 Cholesterol in HDL mass conc 63 mg/dL Normal [facility] Work Phone: Comment on above: According to ATP-III Guidelines, HDL-C >59 mg/dL is considered anegative risk factor for CHD. Cholesterol in LDL mass conc 118 mg/dL Abnormal 0-99 [facility] Work Phone: Cholesterol in LDL/Cholesterol in HDL mass ratio 1.9 {ratio_units} Normal 0.0-3.2 [facility] Work Phone: Cholesterol in VLDL mass conc 16 mg/dL Normal 5-40 [facility] Work Phone: Cholesterol mass conc 197 mg/dL Normal 100-199 [facility] Work Phone: Triglyceride mass conc 82 mg/dL Normal 0-149 [facility] Work Phone: ANAOrdered By: System Manage r on 03-21-2013 RAE Normal [facility] Work Phone: Comment on above: TESTING INTERPRETATI ONSPOSITIVE: > 120EQUIVOCAL: 100 - 120NEGATIVE: < 100 RAE 14 AU/mL Normal [facility] Work Phone: CBCDOrdered By: System Manag er on 03-21-2013 Erythrocyte distribution width Auto Ratio (RBC) 13.6 % Normal 11.6-14.6 [facility] Work Phone: Hematocrit Auto Volume Fraction (Bld) 39.6 % Normal 37-47 [facility] Work Phone: Hemoglobin mass conc (Bld) 13.0 g/dL Normal 12.0-15.0 [facility] Work Phone: MCH Auto Entitic mass (RBC) 29.0 pg Normal 27.0-32.0 [facility] Work Phone: MCHC Auto mass conc (RBC) 32.8 g/dL Normal 32-36 [facility] Work Phone: MCV Auto Entitic volume (RBC) 88.4 fL Normal 81-99 [facility] Work Phone: Platelet mean volume Auto Entitic volume (Bld) 10.7 fL Normal 6.2-12.0 [facility] Work Phone: Platelets Auto #/vol (Bld) 357 10*3/uL Normal 150-450 [facility] Work Phone: RBC Auto #/vol (Bld) 4.48 {M/mm3} Normal 4.2-5.4 [facility] Work Phone: WBC Auto #/vol (Bld) 8.6 {k/mm3} Normal 4.4-11.0 [facility] Work Phone: CBCD 1.3 % Normal 0-5 [facility] Work Phone: CBCD 5.3 3/uL Normal 2.0-7.7 [facility] Work Phone: CBCD 29.5 % Normal 19-41 [facility] Work Phone: CBCD 0.20 % Abnormal 0.0-0.0 [facility] Work Phone: CBCD 61.8 % Normal 47-70 [facility] Work Phone: CBCD 0.5 % Normal 0-1 [facility] Work Phone: CBCD 43.2 fL Normal 35.1-43.9 [facility] Work Phone: CBCD 6.7 % Normal 0-10 [facility] Work Phone: CMPOrdered By: System Manage r on 03-21-2013 Albumin mass conc 4.2 g/dL Normal 3.4-5.0 [facility] Work Phone: ALT enzyme act/vol 33 U/L Normal 12-78 [facility]pre [facility] Work Phone: AST enzyme act/vol 26 U/L Normal 15-37 [facility]: Calcium mass conc 9.0 mg/dL Normal 8.5-10.1 [facility] Work Phone: Chloride molar conc 102 mmol/L Normal 98-107 Compr [facility] Work Phone: CO2 molar conc 27.0 mmol/L Normal 21.0-32.0 [facility] Work Phone: Creatinine mass conc 0.6 mg/dL Normal 0.6-1.0 [facility] Work Phone: GFR/1.73 sq M predicted among non-blacks MDRD vol rate/area (S/P/Bld) 123 mL/min/{1.73_m2} Normal [facility] Work Phone: Globulin Calculated mass conc (S) 4.1 g/dL Normal 2.7-4.2 [facility] Work Phone: Glucose mass conc 77 mg/dL Normal 70-110 [facility] Work Phone: Potassium molar conc 4.0 mmol/L Normal 3.5-5.1 [facility] Work Phone: Sodium molar conc 139 mmol/L Normal 136-145 [facility] Work Phone: Urea nitrogen mass conc 11 mg/dL Normal 7-18 [facility] Work Phone: CMP 10 1 Normal 5-15 [facility] Work Phone: CMP 0.60 mg/dL Normal 0.00-1.00 [facility] Work Phone: CMP 67 U/L Normal 50-136 [facility] Work Phone: CMP 1.0 {RATIO} Normal 0.9-2.4 [facility] Work Phone: CMP 8.3 g/dL Abnormal 6.4-8.2 [facility] Work Phone: CMP 18.3 {RATIO} Normal 10-20 [facility] Work Phone: CMP 149 mL/min Normal [facility] Work Phone: CRPOrdered By: System Manage r on 03-21-2013 CRP mass conc 7.73 mg/L Abnormal 0.0-3.0 Compre[facility]si ve [facility] Work Phone: Comment on above: C-Reactive Protein ( CRP) provides useful information for thediagnosis, therapy and monitoring of inflammatory processesand associated diseases. For the evaluation of Relative Riskfor Cardiovascular Disease, a High Sensitivity CRP (HSCRP)should be ordered. FOLOrdered By: System Manage r on 03-21-2013 FOL < 10.0 Normal [facility] Work Phone: FOL 38.10 ng/mL Abnormal 3.1-17.5 [facility] Work Phone: SEDOrdered By: System Manage r on 03-21-2013 SED 13 mm/h Normal 0-20 [facility] Work Phone: TSHOrdered By: System Manage r on 03-21-2013 Thyrotropin Qn 2.92 {uIU/mL} Normal 0.358-3.74 Compreh ensive [facility] Work Phone: Vital Signs Date Time Vital Sign Value Performing Clinician Facility 12-11-2024 08:05-0400 Body height 162.6 cm Eusebia Foster MANAGER PLACEMENT.CNM Work Phone: [facility] 12-11-2024 08:05-0400 Body mass index (BMI) [Ratio] 39.14 kg/m2 Eusebia Foster MANAGER PLACEMENT.CNM Work Phone: [facility] 12-11-2024 08:05-0400 Body weight 103.42 kg Eusebia Foster MANAGER PLACEMENT.CNM Work Phone: [facility] 12-11-2024 08:05-0400 Diastolic blood pressure 84 mm[Hg] Eusebia Auctomatictiburcio MANAGER PLACEMENT.CNM Work Phone: [facility] 12-11-2024 08:05-0400 Systolic blood pressure 126 mm[Hg] Eusebia Foster MANAGER PLACEMENT.CNM Work Phone: [facility] 04-15-2024 10:48-0400 Body temperature 98.4 [degF] Rivera Salcido PA-C Work Phone: [facility] 11-30-2023 11:07-0500 Body temperature 97.6 [degF] ANTHROPOLOGY DEPARTMENT CHAIR-C Lesa Magen Work Phone: [facility] 11-30-2023 11:07-0500 Diastolic blood pressure 87 mm[Hg] ANTHROPOLOGY DEPARTMENT CHAIR-C Lesa Magen Work Phone: [facility] 11-30-2023 11:07-0500 Heart rate 59 /min ANTHROPOLOGY DEPARTMENT CHAIR-C Lesa Magen Work Phone: [facility] 11-30-2023 11:07-0500 Respiratory rate 14 /min ANTHROPOLOGY DEPARTMENT CHAIR-C Lesa Magen Work Phone: [facility] 11-30-2023 11:07-0500 SaO2% (BldA) [Mass fraction] 97 % ANTHROPOLOGY DEPARTMENT CHAIR-C Lesa Magen Work Phone: [facility] 11-30-2023 11:07-0500 Systolic blood pressure 149 mm[Hg] ANTHROPOLOGY DEPARTMENT CHAIR-C Lesa Magen Work Phone: [facility] 11-30-2023 08:44-0500 Body height 162.56 cm ANTHROPOLOGY DEPARTMENT CHAIR-C Lesa Magen Work Phone: [facility] 11-30-2023 08:44-0500 Body mass index (BMI) [Ratio] 38.5 kg/m2 ANTHROPOLOGY DEPARTMENT CHAIR-C Lesa Magen Work Phone: [facility] 11-30-2023 08:44-0500 Body weight 101.7 kg ANTHROPOLOGY DEPARTMENT CHAIR-C Lesa Magen Work Phone: [facility] 11-02-2023 08:13-0500 Body height 162.6 cm Eusebia Foster MANAGER PLACEMENT.CNM Work Phone: [facility] 11-02-2023 08:13-0500 Body weight 101.61 kg Eusebia Foster MANAGER PLACEMENT.CNM Work Phone: [facility] 11-02-2023 08:13-0500 Diastolic blood pressure 72 mm[Hg] Eusebia Foster MANAGER PLACEMENT.CNM Work Phone: [facility] 11-02-2023 08:13-0500 Systolic blood pressure 120 mm[Hg] Eusebia Foster MANAGER PLACEMENT.CNM Work Phone: [facility] 09-09-2023 08:21-0500 Body height 160.02 cm ANTHROPOLOGY DEPARTMENT CHAIR-C Lesa Magen Work Phone: [facility] 09-09-2023 08:21-0500 Body mass index (BMI) [Ratio] 39.1 kg/m2 ANTHROPOLOGY DEPARTMENT CHAIR-C Lesa Magen Work Phone: [facility] 09-09-2023 08:21-0500 Body temperature 98.4 [degF] ANTHROPOLOGY DEPARTMENT CHAIR-C Lesa Magen Work Phone: [facility] 09-09-2023 08:21-0500 Body weight 100.24 kg ANTHROPOLOGY DEPARTMENT CHAIR-C Lesa Magen Work Phone: [facility] 09-09-2023 08:21-0500 Diastolic blood pressure 82 mm[Hg] ANTHROPOLOGY DEPARTMENT CHAIR-C Lesa Magen Work Phone: [facility] 09-09-2023 08:21-0500 Heart rate 101 /min ANTHROPOLOGY DEPARTMENT CHAIR-C Lesa Magen Work Phone: [facility] 09-09-2023 08:21-0500 Respiratory rate 14 /min ANTHROPOLOGY DEPARTMENT CHAIR-C Lesa Magen Work Phone: [facility] 09-09-2023 08:21-0500 SaO2% (BldA) [Mass fraction] 95 % ANTHROPOLOGY DEPARTMENT CHAIR-C Lesa Magen Work Phone: [facility] 09-09-2023 08:21-0500 Systolic blood pressure 129 mm[Hg] ANTHROPOLOGY DEPARTMENT CHAIR-C Lesa Magen Work Phone: [facility] 05-16-2022 12:58-0400 Body height 161.3 cm Latoya Macdonald MD Work Phone: [facility] 05-16-2022 12:58-0400 Body weight 102.06 kg Latoya Macdonald MD Work Phone: [facility] 05-16-2022 12:58-0400 Diastolic blood pressure 92 mm[Hg] Latoya Macdonald MD Work Phone: [facility] 05-16-2022 12:58-0400 Heart rate 80 /min Latoya Macdonald MD Work Phone: [facility] 05-16-2022 12:58-0400 Respiratory rate 16 /min Latoya Macdonald MD Work Phone: [facility] 05-16-2022 12:58-0400 SaO2% (BldA) [Mass fraction] 99 % Latoya Macdonald MD Work Phone: [facility] 05-16-2022 12:58-0400 Systolic blood pressure 136 mm[Hg] Latoya Macdonald MD Work Phone: [facility] 04-04-2022 08:28-0400 Body height 162.6 cm Eusebia Plotts MANAGER PLACEMENT.CNM Work Phone: [facility] 04-04-2022 08:28-0400 Body weight 102.97 kg Eusebia Plotts MANAGER PLACEMENT.CNM Work Phone: [facility] 04-04-2022 08:28-0400 Diastolic blood pressure 80 mm[Hg] Eusebia Plotts MANAGER PLACEMENT.CNM Work Phone: [facility] 04-04-2022 08:28-0400 Systolic blood pressure 122 mm[Hg] Eusebia Plotts MANAGER PLACEMENT.CNM Work Phone: [facility] 05-04-2017 08:02-0400 BMI (Body Mass Index) 33.19 kg/m2 Ariana [facility] Work Phone: 05-04-2017 08:02-0400 BP Diastolic 80 mm[Hg] Ariana Moncho [facility] Internal [facility] Work Phone: Comment on above: Patient Position: Sitting; Cuff Location : Left Arm; Cuff Size: Large 05-04-2017 08:02-0400 BP Systolic 122 mm[Hg] Ariana Ceballos [facility] Work Phone: Comment on above: Patient Position: Sitting; Cuff Location : Left Arm; Cuff Size: Large 05-04-2017 08:02-0400 BSA (Body Surface Area) 1.93 m2 Ariana Ceballos [facility] Internal [facility] Work Phone: 05-04-2017 08:02-0400 Height 162.56 cm Ariana Ceballos [facility] Work Phone: 05-04-2017 08:02-0400 Pulse (Heart Rate) 85 /min Ariana Ceballos [facility] Work Phone: Comment on above: Pattern: Regular 05-04-2017 08:02-0400 Pulse Oximetry 98 % Ariana Ceballos [facility] Work Phone: Comment on above: Room air 05-04-2017 08:02-0400 Respiratory Rate 18 /min Ariana Ceballos [facility] Work Phone: Comment on above: Pattern: Unlabored 05-04-2017 08:02-0400 Weight 87.71 kg Ariana Ceballos [facility] Work Phone: 08-22-2016 13:56-0500 BMI (Body Mass Index) 34.39 kg/m2 Ariana Ceballos [facility] Work Phone: 08-22-2016 13:56-0500 BP Diastolic 82 mm[Hg] Ariana Ceballos [facility] Work Phone: Comment on above: Patient Position: Sitting; Cuff Location : Left Arm; Cuff Size: Large 08-22-2016 13:56-0500 BP Systolic 120 mm[Hg] Ariana Ceballos [facility] Work Phone: Comment on above: Patient Position: Sitting; Cuff Location : Left Arm; Cuff Size: Large 08-22-2016 13:56-0500 BSA (Body Surface Area) 1.96 m2 Ariana Ceballos [facility] Work Phone: 08-22-2016 13:56-0500 Height 162.56 cm Ariana Ceballos [facility] Work Phone: 08-22-2016 13:56-0500 Pulse (Heart Rate) 73 /min Ariana Ceballos [facility] Work Phone: Comment on above: Pattern: Regular 08-22-2016 13:56-0500 Pulse Oximetry 98 % Ariana Ceballos [facility] Work Phone: Comment on above: Room air 08-22-2016 13:56-0500 Respiratory Rate 18 /min Ariana Ceballos [facility] Work Phone: Comment on above: Pattern: Unlabored 08-22-2016 13:56-0500 Weight 90.89 kg Ariana Ceballos [facility] Work Phone: 07-21-2015 09:34-0400 BMI (Body Mass Index) 33.02 kg/m2 Ariana Ceballos [facility] Work Phone: 07-21-2015 09:34-0400 BP Diastolic 82 mm[Hg] Ariana Ceballos [facility] Work Phone: Comment on above: Patient Position: Sitting; Cuff Location : Left Arm; Cuff Size: Large 07-21-2015 09:34-0400 BP Systolic 122 mm[Hg] Ariana Ceballos [facility] Work Phone: Comment on above: Patient Position: Sitting; Cuff Location : Left Arm; Cuff Size: Large 07-21-2015 09:34-0400 BSA (Body Surface Area) 1.92 m2 Ariana Ceballos [facility] Work Phone: 07-21-2015 09:34-0400 Height 162.56 cm Ariana [facility] Work Phone: 07-21-2015 09:34-0400 Pulse (Heart Rate) 70 /min Ariana Ceballos [facility] Work Phone: Comment on above: Pattern: Regular 07-21-2015 09:34-0400 Pulse Oximetry 99 % Ariana Ceballos [facility] Work Phone: Comment on above: Room air 07-21-2015 09:34-0400 Respiratory Rate 18 /min Ariana [facility] Work Phone: Comment on above: Pattern: Unlabored 07-21-2015 09:34-0400 Weight 87.26 kg Ariana [facility] Work Phone: 02-01-2015 09:49-0400 BMI (Body Mass Index) 30.99 kg/m2 Ariana Ceballos [facility] Work Phone: 02-01-2015 09:49-0400 Body Temperature 97.6 [degF] Ariana Ceballos [facility] Work Phone: 02-01-2015 09:49-0400 BP Diastolic 84 mm[Hg] Ariana Ceballos [facility] Work Phone: Comment on above: Patient Position: Sitting; Cuff Location : Left Arm; Cuff Size: Standard 02-01-2015 09:49-0400 BP Systolic 126 mm[Hg] Ariana Ceballos [facility] Work Phone: Comment on above: Patient Position: Sitting; Cuff Location : Left Arm; Cuff Size: Standard 02-01-2015 09:49-0400 BSA (Body Surface Area) 1.87 m2 Ariana Ceballos [facility] Work Phone: 02-01-2015 09:49-0400 Height 162.56 cm Ariana Ceballos [facility] Work Phone: 02-01-2015 09:49-0400 Pulse (Heart Rate) 68 /min Ariana Malone [facility] Work Phone: Comment on above: Pattern: Regular 02-01-2015 09:49-0400 Pulse Oximetry 96 % Ariana Ceballos [facility] Work Phone: Comment on above: Room air 02-01-2015 09:49-0400 Respiratory Rate 16 /min Ariana Ceballos [facility] Work Phone: Comment on above: Pattern: Unlabored 02-01-2015 09:49-0400 Weight 81.9 kg Ariana Malone [facility] Work Phone: 11-27-2014 07:46-0500 BMI (Body Mass Index) 30.99 kg/m2 Ariana [facility] Work Phone: 11-27-2014 07:46-0500 BP Diastolic 80 mm[Hg] Ariana Ceballos [facility] Work Phone: Comment on above: Patient Position: Sitting; Cuff Location : Left Arm; Cuff Size: Large 11-27-2014 07:46-0500 BP Systolic 122 mm[Hg] Ariana Ceballos [facility] Work Phone: Comment on above: Patient Position: Sitting; Cuff Location : Left Arm; Cuff Size: Large 11-27-2014 07:46-0500 BSA (Body Surface Area) 1.87 m2 Ariana Ceballos [facility] Work Phone: 11-27-2014 07:46-0500 Height 162.56 cm Ariana Ceballos [facility] Work Phone: 11-27-2014 07:46-0500 Pulse (Heart Rate) 89 /min Ariana Ceballos [facility] Work Phone: Comment on above: Pattern: Regular 11-27-2014 07:46-0500 Pulse Oximetry 99 % Ariana Ceballos [facility] Work Phone: Comment on above: Room air 11-27-2014 07:46-0500 Respiratory Rate 18 /min Ariana Ceballos [facility] Work Phone: Comment on above: Pattern: Unlabored 11-27-2014 07:46-0500 Weight 81.9 kg Ariana Ceballos [facility] Work Phone: 11-09-2014 11:00-0500 BMI (Body Mass Index) 30.99 kg/m2 Ariana Ceballos [facility] Work Phone: 11-09-2014 11:00-0500 Body Temperature 99.4 [degF] Ariana Ceballos [facility] Work Phone: Comment on above: Method: Temporal 11-09-2014 11:00-0500 BP Diastolic 76 mm[Hg] Ariana Ceballos [facility] Work Phone: Comment on above: Patient Position: Sitting; Cuff Location : Left Arm; Cuff Size: Large 11-09-2014 11:00-0500 BP Systolic 120 mm[Hg] Ariana Ceballos [facility] Work Phone: Comment on above: Patient Position: Sitting; Cuff Location : Left Arm; Cuff Size: Large 11-09-2014 11:00-0500 BSA (Body Surface Area) 1.87 m2 Ariana Ceballos [facility] Work Phone: 11-09-2014 11:00-0500 Height 162.56 cm Ariana Ceballos [facility] Work Phone: 11-09-2014 11:00-0500 Pulse (Heart Rate) 76 /min Ariana Ceballos [facility] Work Phone: Comment on above: Pattern: Regular 11-09-2014 11:00-0500 Pulse Oximetry 98 % Ariana Ceballos [facility] Work Phone: Comment on above: Room air 11-09-2014 11:00-0500 Respiratory Rate 18 /min Ariana Ceballos [facility] Work Phone: Comment on above: Pattern: Unlabored 11-09-2014 11:00-0500 Weight 81.9 kg Ariana Ceballos [facility] Work Phone: 05-08-2014 14:17-0400 BMI (Body Mass Index) 30.65 kg/m2 Ariana Ceballos [facility] Work Phone: 05-08-2014 14:17-0400 BP Diastolic 80 mm[Hg] Ariana Ceballos [facility] Work Phone: Comment on above: Patient Position: Sitting; Cuff Location : Left Arm; Cuff Size: Large 05-08-2014 14:17-0400 BP Systolic 120 mm[Hg] Ariana Ceballos [facility] Work Phone: Comment on above: Patient Position: Sitting; Cuff Location : Left Arm; Cuff Size: Large 05-08-2014 14:170400 BSA (Body Surface Area) 1.86 m2 Ariana Ceballos [facility] Work Phone: 05-08-2014 14:17-0400 Height 162.56 cm Ariana Ceballos [facility] Work Phone: 05-08-2014 14:17-0400 Pulse (Heart Rate) 81 /min Ariana Ceballos [facility] Work Phone: Comment on above: Pattern: Regular 05-08-2014 14:17-0400 Pulse Oximetry 98 % Ariana Ceballos [facility] Work Phone: Comment on above: Room air 05-08-2014 14:17-0400 Respiratory Rate 18 /min Ariana Ceballos [facility] Work Phone: Comment on above: Pattern: Unlabored 05-08-2014 14:17-0400 Weight 81 kg Ariana Ceballos [facility] Work Phone: 08-27-2013 12:55-0500 BMI (Body Mass Index) 31.51 kg/m2 Ariana Ceballos [facility] Work Phone: 08-27-2013 12:55-0500 BP Diastolic 80 mm[Hg] Ariana Ceballos [facility] Work Phone: Comment on above: Patient Position: Sitting; Cuff Location : Left Arm; Cuff Size: Large 08-27-2013 12:55-0500 BP Systolic 118 mm[Hg] Ariana Ceballos [facility] Work Phone: Comment on above: Patient Position: Sitting; Cuff Location : Left Arm; Cuff Size: Large 08-27-2013 12:55-0500 BSA (Body Surface Area) 1.89 m2 Ariana Ceballos [facility] Work Phone: 08-27-2013 12:55-0500 Height 162.56 cm Ariana Ceballos [facility] Work Phone: 08-27-2013 12:55-0500 Pulse (Heart Rate) 76 /min Ariana Ceballos [facility] Work Phone: Comment on above: Pattern: Regular 08-27-2013 12:55-0500 Pulse Oximetry 98 % Ariana Malone [facility] Work Phone: Comment on above: Room air 08-27-2013 12:55-0500 Respiratory Rate 20 /min Ariana Ceballos [facility] Work Phone: Comment on above: Pattern: Unlabored 08-27-2013 12:55-0500 Weight 83.26 kg Ariana Ceballos [facility] Work Phone: 04-21-2013 14:36-0400 BMI (Body Mass Index) 33.35 kg/m2 Ariana Ceballos [facility] Work Phone: 04-21-2013 14:36-0400 Body Temperature 99.7 [degF] Ariana Ceballos [facility] Work Phone: Comment on above: Method: Oral 04-21-2013 14:36-0400 BP Diastolic 78 mm[Hg] Ariana Ceballos [facility] Work Phone: Comment on above: Patient Position: Sitting; Cuff Location : Left Arm; Cuff Size: Large 04-21-2013 14:36-0400 BP Systolic 122 mm[Hg] Ariana Ceballos [facility] Work Phone: Comment on above: Patient Position: Sitting; Cuff Location : Left Arm; Cuff Size: Large 04-21-2013 14:36-0400 BSA (Body Surface Area) 1.93 m2 Ariana Ceballos [facility] Work Phone: 04-21-2013 14:36-0400 Height 162.56 cm Ariana Ceballos [facility] Work Phone: 04-21-2013 14:36-0400 Pulse (Heart Rate) 68 /min Ariana Malone [facility] Work Phone: Comment on above: Pattern: Regular 04-21-2013 14:36-0400 Respiratory Rate 18 /min Ariana Ceballos [facility] Work Phone: Comment on above: Pattern: Unlabored 04-21-2013 14:36-0400 Weight 88.14 kg Ariana Ceballos [facility] Work Phone: 03-26-2013 16:05-0400 BMI (Body Mass Index) 33.17 kg/m2 Ariana Ceballos [facility] Work Phone: 03-26-2013 16:05-0400 BP Diastolic 62 mm[Hg] Ariana Ceballos [facility] Work Phone: Comment on above: Patient Position: Sitting; Cuff Location : Left Arm; Cuff Size: Large 03-26-2013 16:05-0400 BP Systolic 118 mm[Hg] Ariana Ceballos [facility] Work Phone: Comment on above: Patient Position: Sitting; Cuff Location : Left Arm; Cuff Size: Large 03-26-2013 16:05-0400 BSA (Body Surface Area) 1.93 m2 Ariana Ceballos [facility] Work Phone: 03-26-2013 16:05-0400 Height 162.56 cm Ariana Ceballos [facility] Work Phone: 03-26-2013 16:05-0400 Pulse (Heart Rate) 64 /min Ariana Ceballos [facility] Work Phone: Comment on above: Pattern: Regular 03-26-2013 16:05-0400 Respiratory Rate 18 /min Ariana Ceballos [facility] Work Phone: Comment on above: Pattern: Unlabored 03-26-2013 16:05-0400 Weight 87.66 kg Ariana Ceballos [facility] Work Phone: 03-20-2013 09:09-0400 BMI (Body Mass Index) 33.65 kg/m2 Ariana Ceballos [facility] Work Phone: 03-20-2013 09:09-0400 Body Temperature 98.2 [degF] Ariana Ceballos [facility] Work Phone: Comment on above: Method: Oral 03-20-2013 09:09-0400 BP Diastolic 78 mm[Hg] Ariana Ceballos [facility] Work Phone: Comment on above: Patient Position: Sitting; Cuff Location : Left Arm; Cuff Size: Large 03-20-2013 09:09-0400 BP Systolic 118 mm[Hg] Ariana Ceballos [facility] Work Phone: Comment on above: Patient Position: Sitting; Cuff Location : Left Arm; Cuff Size: Large 03-20-2013 09:090400 BSA (Body Surface Area) 1.94 m2 Ariana Ceballos [facility] Work Phone: 03-20-2013 09:090400 Height 162.56 cm Ariana Ceballos [facility] Work Phone: 03-20-2013 09:09-0400 Pulse (Heart Rate) 64 /min Ariana Ceballos [facility] Work Phone: Comment on above: Pattern: Regular 03-20-2013 09:09-0400 Respiratory Rate 18 /min Ariana Ceballos [facility] Work Phone: Comment on above: Pattern: Unlabored 03-20-2013 09:09-0400 Weight 88.93 kg Ariana Ceballos [facility] Work Phone: Encounters Encounter Date Encounter Type Care Provider Facility Start: 03-27-2025 End: 03-27-[address] Ya Santillan MD Work Phone: -[facility] Start: 03-27-2025 End: 03-27-[address] Wanda Burrows MD -[facility] [place] Work Phone: Start: 03-27-2025 End: 03-27-2025 ambulatory Wanda Burrows Facility:[facility] Start: 01-15-2025 Encounter for genera l adult medical examination without abnormal findings Ya Santillan [facility] Start: 01-12-2025 End: 01-12-[address] Ya Santillan MD Work Phone: [facility] Work Phone: Start: 01-12-2025 End: 01-12-[address] Ya Santillan MD -Laboratory, [place] Work Phone: Start: 01-12-2025 End: 01-12-2025 ambulatory Ya Santillan Facility:[facility] Start: 01-02-2025 End: 01-02-[address] Ya Santillan MD Work Phone: [facility] Work Phone: Start: 01-02-2025 End: 01-02-[address] Wanda Burrows MD -Laboratory, [place] Work Phone: Start: 01-02-2025 End: 01-02-2025 ambulatory Wanda Burrows Facility:[facility] Start: 12-18-2024 End: 02-17-2025 Follow-up encounter Eusebia Foster APRN.CNM Work Phone: OB/Gynecology Start: 12-18-2024 End: 12-18-2024 ambulatory ARIANA CEBALLOS Facility:[facility] Start: 12-18-2024 Encounter for gynecological examination (general) (routine) with abnormal findings ARIANA CEBALLOS [facility] Start: 12-18-2024 End: 12-18-2024 Patient encounter status Screen [facility] Start: 12-18-2024 End: 12-18-2024 Subsequent hospital visit by physician Screen Mammo [facility] Comment on above: Encounter for gyneco logical examination (general) (routine) with abnormal findings [Z01.411] Start: 12-11-2024 End: 12-11-2024 ambulatory ARIANA CEBALLOS Facility:[facility] Start: 12-11-2024 End: 12-11-2024 Patient encounter procedure Eusebia Foster APRN.CNM Work Phone: OB/Gynecology Comment on above: Encounter for gyneco logical examination (general) (routine) with abnormal findings (Primary Dx); Encounter for screening mammogram for breast cancer; Dense breast tissue Start: 12-11-2024 End: 12-11-2024 Patient encounter status Eusebia Foster MANAGER PLACEMENT.CNM Work Phone: [facility] Start: 11-08-2024 End: 11-08-[address] Wanda Burrows MD -Laboratory Work Phone: Start: 11-08-2024 End: 11-08-2024 ambulatory Wanda Markos Facility:[facility] Start: 08-18-2024 End: [facility] Start: 05-22-2024 End: [facility] Start: 04-15-2024 End: 04-15-2024 ambulatory ARIANA CEBALLOS Facility:[facility] Start: 04-15-2024 End: 04-15-2024 Patient encounter procedure Rivera Salcido PA-C Work Phone: Otolaryngology Comment on above: Sensorineural hearin g loss (SNHL) 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 (Primary Dx) Start: 03-31-2024 End: 03-31-2024 Subsequent hospital visit by physician [facility] Comment on above: Disorders of other s pecified cranial nerves Start: 03-31-2024 End: 03-31-2024 ambulatory JUANITO Mandujano [facility] Start: 02-28-2024 End: 02-28-2024 ambulatory MERON BROOKS Facility:[facility] Start: 02-28-2024 End: 02-28-2024 Patient encounter procedure Meron SERRATO Work Phone: Audiology Comment on above: Sensorineural hearin g loss (SNHL) of right ear with unrestricted hearing of left ear (Primary Dx) Start: 12-03-2023 Documentation procedure Mammog aruna Coordinator [facility] Start: 12-03-2023 Letter encounter Mammography Coordinator [facility] Department Start: 12-03-2023 End: 12-03-2023 Patient [facility] Start: 12-03-2023 End: 12-03-2023 Subsequent hospital visit by physician Screen Mammo [facility] Comment on above: Encounter for gyneco logical examination (general) (routine) without abnormal findings [Z01.419] Start: 11-30-2023 End: 11-30-2023 Emergency department patient visit ANTHROPOLOGY DEPARTMENT CHAIR-Hayley Us Work Phone: [facility] Work Phone: Start: 11-24-2023 End: 11-24-2023 ambulatory ANTHROPOLOGY DEPARTMENT CHAIR-Hayley Lesa Us Work Phone: [facility] Work Phone: Start: 11-24-2023 End: 11-24-2023 Patient encounter procedure ANTHROPOLOGY DEPARTMENT CHAIR-Hayley Lesa Us Work Phone: [facility]Laboratory Work Phone: Start: 11-02-2023 End: 11-02-2023 Patient encounter procedure Eusebia Foster APRN.CNM Work Phone: OB/Gynecology Comment on above: Encounter for gyneco logical examination (general) (routine) without abnormal findings (Primary Dx); Encounter for screening mammogram for breast cancer; Class 2 obesity with body mass index (BMI) of 38.0 to 38.9 in adult, unspecified obesity type, unspecified whether serious comorbidity present Start: 11-02-2023 End: 11-02-2023 Patient encounter status Eusebia Plottiburcio MANAGER PLACEMENT.CNM Work Phone: [facility] Start: 09-28-2023 End: 09-28-2023 ambulatory ANTHROPOLOGY DEPARTMENT CHAIR-Hayley Lesa Us Work Phone: [facility] Work Phone: Start: 09-28-2023 End: 09-28-2023 Patient encounter procedure ANTHROPOLOGY DEPARTMENT CHAIR-Hayley MonsonLesaheaven Us Work Phone: [facility] Work Phone: Start: 09-09-2023 End: 09-09-2023 Patient encounter procedure ANTHROPOLOGY DEPARTMENT CHAIR-Hayley MonsonLesaheaven Us Work Phone: [facility] Work Phone: Start: 07-24-2023 End: 07-24-2023 ambulatory [facility] Work Phone: Start: 07-24-2023 End: 07-24-2023 Patient encounter procedure [facility], [place] Work Phone: Start: 05-18-2023 End: 05-18-2023 ambulatory [facility] Work Phone: Start: 05-18-2023 End: 05-18-2023 Patient encounter procedure [facility], [facility] Work Phone: Start: 04-16-2023 End: 04-16-2023 ambulatory [facility] Work Phone: Start: 04-16-2023 End: 04-16-2023 Patient encounter procedure [facility] Work Phone: Start: 09-15-2022 End: 09-15-2022 Subsequent hospital visit by physician Screen Mammo [facility] Comment on above: Encounter for screen ing mammogram for breast cancer [Z12.31] Start: 06-02-2022 Telephone encounter Latoya Macdonald MD Work Phone: Endocrinology Comment on above: Results Start: 05-16-2022 End: 05-16-2022 Patient encounter procedure Latoya Macdonald MD Work Phone: Endocrinology Comment on above: Elevated testosteron e level in female (Primary Dx); Unintended weight gain; Hirsutism; Vitamin D deficiency; BMI 39.0-39.9,adult Start: 04-04-2022 End: 04-04-2022 Patient encounter procedure Eusebia Foster APRN.CNM Work Phone: OB/Gynecology Comment on above: Unintended weight ga in (Primary Dx); Encounter for gynecological examination (general) (routine) without abnormal findings; Screening for cervical cancer; Encounter for screening for human papillomavirus (HPV); Encounter for screening mammogram for breast cancer; Elevated testosterone level in female; Vaginal dryness Start: 04-04-2022 End: 04-04-2022 Patient encounter status Eusebia Foster MANAGER PLACEMENT.CNM Work Phone: OB/Gynecology Start: 05-04-2017 End: 05-04-2017 Office outpatient visit 15 minutes Ariana Cliffordon [facility] Start: 08-22-2016 End: 08-22-2016 [facility] Start: 08-17-2015 End: 08-17-2015 Office outpatient visit 15 minutes Arianabrady Cliffordon [facility] Start: 07-21-2015 End: 07-21-2015 Periodic preventive med est patient 18-39 yrs Ariana Ceballos [facility] Start: 02-01-2015 End: 02-01-2015 Office outpatient visit 15 minutes Ariana Cliffordon [facility] Start: 11-27-2014 End: 11-27-2014 Office outpatient visit 15 minutes Ariana Cliffordon [facility] Start: 11-09-2014 End: 11-09-2014 [facility] Start: 05-08-2014 End: 05-08-2014 Periodic preventive med est patient 18-39 yrs Ariana Ceballos [facility] Internal Medicine Start: 08-27-2013 End: 08-27-2013 Patient encounter procedure Ariana Moncho [facility] Start: 04-21-2013 End: 04-21-2013 Patient encounter procedure Ariana Moncho [facility] Start: 03-26-2013 End: 03-26-2013 Patient encounter procedure [facility]ana [facility] Internal Medicine Start: 03-20-2013 End: 03-20-2013 [facility] Procedures Date Procedure Procedure Detail Performing Clinician Start: 01-12-2025 Vitamin D, 25-hydrox y measurement Dr. Ya Santillan MD Work Phone: Comment on above: Vitamin D StatusDefi ciency: <20 ng/mL (50nmol/L)Insufficiency: 20-30 ng/mL (50-75 nmol/L)Sufficiency: 30-100 ng/mL (75-250 nmol/L)Toxicity: >100 ng/mL (>250 nmol/L) Start: 12-18-2024 Screening digital breast tomosynthesis bi Eusebia Plotts MANAGER PLACEMENT.CNM Work Phone: Start: 02-28-2024 HEARING TEST/AUDIOGRAM Meron SERRATO Work Phone: Start: 12-03-2023 End: 12-03-2023 Screening digital breast tomosynthesis bi Eusebia Foster MANAGER PLACEMENT.CNM Work Phone: Start: 11-30-2023 Computed tomography of abdomen and pelvis with intravenous contrast ANTHROPOLOGY DEPARTMENT CHAIR-C Lesa Us Work Phone: Start: 05-18-2023 X-ray of both feet Start: 09-15-2022 ROBINA SCREENING W LALITHA Co urmeche Foster MANAGER PLACEMENT.CNM Work Phone: Start: 07-29-2021 Mammography Eusebia lopez MANAGER PLACEMENT.CNM Work Phone: Start: 09-01-2015 End: 09-01-2015 Breast Limited Unilateral Comments: See Note; NOTES: [facility] Imaging Services [address] [place] [address] [address] 4d Breast Limited Unilateral MR#: [id number] Acct: [id number] Name: KAREN HUTSON Rep #: [id number] : 1980 F 35 From: Benjamin Vega MD PCP: Ariana Ceballos DO Status: REG CLI Study: Breast Limited Unilateral Date of Exam: 09/01/15 Exam# [id number] Ordering Dr: Ariana Ceballos DO STUDY: ULTRASOUND [...] Benjamin Vega MD at 9:49 EST Tel [phone], Service support [phone], CC: Ariana Ceballos DO Gas System Operator: Signed Ariana Ceballos Work Phone: Start: 08-25-2015 End: 08-25-2015 Bilat Scrn Digital AND CAD Comments: See Note; NOTES: [facility] Imaging Services [address] [place] [id number] [address] 4d Bilat Scrn Digital AND CAD MR#: [id number] Acct: [id number] Name: KAREN HUTSON Rep #: [id number] : 1980 F 34 From: Benjamin Vega MD PCP: Ariana Ceballos DO Status: REG CLI Study: Bilat Scrn Digital AND CAD Date of Exam: 08/25/15 Exam# [id number] Ordering Dr: Ariana Ceballos DO MAMMOGRAPHY - [...] delay biopsy of a clinically suspicious abnormality. [id number] Electronically Signed: Benjamin Vega MD at 9:13 EST Tel [phone], Service support [phone], CC: Ariana Ceballos DO Gas System Operator: Signed Ariana Ceballos Work Phone: Start: 03-20-2013 End: 03-20-2013 No Known Past Surgical History Carmen Messenger Plan of Treatment Date Care Activity Detail Author Start: 2030 Zoster Vaccines (1 o f 2) Zoster Vaccines (1 of 2) [facility] Start: 04-04-2027 HPV TESTING HPV TESTING [facility] Start: 04-04-2027 PAP TESTING PAP TESTING [facility] Start: 04-04-2027 Screening for malignant neoplasm of cervix [facility] Start: 12-18-2025 Screening for malignant neoplasm of breast Mammogram Screening [facility] Start: 12-14-2025 End: 12-14-2025 Patient encounter procedure 12/14/2025 8:15 AM EDT Office Visit OB/Gynecology [address] [place] [address] Eusebia Foster APRN.CN [address] [place] [address] ANNUAL OB/Gynecology Comment on above: ANNUAL Start: 06-01-2025 Influenza vaccination Influenz a Vaccine (Season Ended) [facility] Start: 12-18-2024 End: 12-18-2024 Patient encounter procedure 12/18/2024 7:50 AM EDT Appointment Mammogram [address] [place] [address] Encounter for screening mammogram for breast cancer [Z12.31]; Dense breast tissue [R92.30] Mammogram Comment on above: Encounter for screen ing mammogram for breast cancer [Z12.31]; Dense breast tissue [R92.30] Start: 12-02-2024 Screening for malignant neoplasm of breast [facility] Start: 11-04-2024 End: 11-04-2024 Patient encounter procedure 11/04/2024 8:15 AM EST Office Visit OB/Gynecology [address] [place] [address] Eusebia Foster APRN.CNM [address] [place] [address] annual OB/Gynecology Comment on above: annual Start: 06-01-2024 Covid-19 Vaccine ( season) Covid-19 Vaccine ( season) [facility] Start: 06-01-2024 Influenza vaccination [facility] Start: 04-15-2024 End: 04-15-2024 Patient encounter procedure 04/15/2024 10:55 AM EDT Office Visit Otolaryngology [address] [place] [address] Rivera Salcido PA-C [address] [place] [address] hearing loss Otolaryngology Comment on above: hearing loss Start: [facility]-30-2023 [facility] Start: 10-01-2023 Behavioral Health Screening Behavioral Health Screening [facility] Start: 10-01-2023 Depression Assessment Depression Ass essment [facility] Start: 09-15-2023 Mammography Mammogram Screening [facility] Start: 09-15-2023 Screening for malignant neoplasm of breast Mammogram Screening [facility] Start: 06-01-2023 Covid-19 Vaccine () Covid-19 Vaccine () [facility] Start: 06-01-2023 Influenza vaccination Influenza Vacc ine (#1) [facility] Start: 04-04-2023 Screening for malignant neoplasm of cervix Cervical Cancer Screening [facility] Start: 10-01-2022 Depression Assessment Depression Ass essment [facility] Start: 07-29-2022 Mammography MAMMOGRAM [facility] Start: 06-01-2022 Influenza vaccination INFLUENZA (#1) [facility] Start: 05-16-2022 End: 05-16-2023 17-Hydroxyprogesterone [Mass/volume] in Serum or Plasma HYDROXYPROGESTERO-17 Lab Routine Unintended weight gain Elevated testosterone level in female Hirsutism Expected: 05/16/2022, Expires: 05/16/2023 [facility] Work Phone: Comment on above: Expected: 05/16/2022 , Expires: 05/16/2023 Start: 05-16-2022 End: 07-16-2022 25-hydroxyvitamin D3 [Mass/volume] in Serum or Plasma VITAMIN D 25 HYDROXY Lab Routine Vitamin D deficiency Expected: 05/16/2022, Expires: 07/16/2022 [facility] Work Phone: Comment on above: Expected: 05/16/2022 , Expires: 07/16/2022 Start: 05-16-2022 End: 05-16-2023 BIOAVAIL TESTO/SHBG, FEM & CHILD BIOAVAIL TESTO/SHBG, FEM & CHILD Lab Routine Unintended weight gain Elevated testosterone level in female Hirsutism Expected: 05/16/2022, Expires: 05/16/2023 [facility] Work Phone: Comment on above: Expected: 05/16/2022 , Expires: 05/16/2023 Start: 05-16-2022 End: 05-16-2023 Comprehensive metabolic 2000 panel - Serum or Plasma COMP METABOLIC PANEL Lab Routine Unintended weight gain Elevated testosterone level in female Hirsutism Expected: 05/16/2022, Expires: 05/16/2023 [facility] Work Phone: Comment on above: Expected: 05/16/2022 , Expires: 05/16/2023 Start: 05-16-2022 End: 05-16-2023 Corticotropin [Mass/volume] in Plasma ACTH BLD Lab Routine Unintended weight gain Elevated testosterone level in female Hirsutism Expected: 05/16/2022, Expires: 05/16/2023 [facility] Work Phone: Comment on above: Expected: 05/16/2022 , Expires: 05/16/2023 Start: 05-16-2022 End: 05-16-2023 Cortisol [Mass/volume] in Serum or Plasma CORTISOL BLD Lab Routine Unintended weight gain Elevated testosterone level in female Hirsutism Expected: 05/16/2022, Expires: 05/16/2023 [facility] Work Phone: Comment on above: Expected: 05/16/2022 , Expires: 05/16/2023 Start: 05-16-2022 End: 07-16-2022 CORTISOL SALIVA CORTISOL SALIVA Lab Routine Unintended weight gain Elevated testosterone level in female Hirsutism Expected: 05/16/2022, Expires: 07/16/2022 [facility] Work Phone: Comment on above: Expected: 05/16/2022 , Expires: 07/16/2022 Start: 05-16-2022 End: 05-16-2023 DHEA-S BLD DHEA-S BLD Lab Routine Unintended weight gain Elevated testosterone level in female Hirsutism Expected: 05/16/2022, Expires: 05/16/2023 [facility] Work Phone: Comment on above: Expected: 05/16/2022 , Expires: 05/16/2023 Start: 05-16-2022 End: 05-16-2023 INSULIN LIK GR FAC I INSULIN LIK GR FAC I Lab Routine Unintended weight gain Elevated testosterone level in female Hirsutism Expected: 05/16/2022, Expires: 05/16/2023 [facility] Work Phone: Comment on above: Expected: 05/16/2022 , Expires: 05/16/2023 Start: 05-16-2022 End: 05-16-2023 Lipid 1996 panel - Serum or Plasma LIPID PANEL BASIC Lab Routine Unintended weight gain Elevated testosterone level in female Hirsutism Expected: 05/16/2022, Expires: 05/16/2023 [facility] Work Phone: Comment on above: Expected: 05/16/2022 , Expires: 05/16/2023 Start: 05-16-2022 End: 05-16-2023 Prolactin [Mass/volume] in Serum or Plasma PROLACTIN BLD Lab Routine Unintended weight gain Elevated testosterone level in female Hirsutism Expected: 05/16/2022, Expires: 05/16/2023 [facility] Work Phone: Comment on above: Expected: 05/16/2022 , Expires: 05/16/2023 Start: 04-04-2022 End: 06-04-2022 CBC W Auto Differential panel - Blood CBC + DIFF Lab Routine Unintended weight gain Expected: 04/04/2022, Expires: 06/04/2022 [facility] Work Phone: Comment on above: Expected: 04/04/2022 , Expires: 06/04/2022 Start: 04-04-2022 End: 06-04-2022 Hemoglobin A1c in Blood HGB A1C Lab Routine Unintended weight gain Expected: 04/04/2022, Expires: 06/04/2022 [facility] Work Phone: Comment on above: Expected: 04/04/2022 , Expires: 06/04/2022 Start: 04-04-2022 End: 06-04-2022 Lipid 1996 panel - Serum or Plasma LIPID PANEL BASIC Lab Routine Encounter for gynecological examination (general) (routine) without abnormal findings Unintended weight gain Expected: 04/04/2022, Expires: 06/04/2022 [facility] Work Phone: Comment on above: Expected: 04/04/2022 , Expires: 06/04/2022 Start: 04-04-2022 End: 06-04-2022 Thyrotropin [Units/volume] in Serum or Plasma TSH BLD Lab Routine Unintended weight gain Expected: 04/04/2022, Expires: 06/04/2022 [facility] Work Phone: Comment on above: Expected: 04/04/2022 , Expires: 06/04/2022 Start: 03-21-2022 HPV TESTING HPV TESTING [facility] Start: 03-21-2022 PAP TESTING PAP TESTING [facility] Start: 07-21-2015 Hpv, dna, amp probe HPV automatic (7 7957) [facility] Work Phone: Start: 11-09-2014 Thyrotropin Qn TSH (18103) [facility] Work Phone: Start: 11-09-2014 Comprehensive metabolic panel METABOLIC PANEL, COMPREHENSIVE (41980) [facility] Work Phone: Start: 11-09-2014 Blood count manual cell count each CBC with auto diff (98915) [facility] Work Phone: Start: 05-08-2014 Hpv, dna, amp probe HPV automatic (7 8150) [facility] Work Phone: Start: 04-21-2013 Cytp cerv/vag auto thin layer prep mnl screen Thin prep Pap (01709) (no STD testing) [facility] Work Phone: Start: 03-20-2013 25 hydroxy includes fractions if performed CALCIFIDIOL (65671) VIT D 25 [facility] Work Phone: Start: 03-20-2013 Assay of folic acid serum Folate (96246) [facility] Work Phone: Start: 03-20-2013 Cobalamin (Vitamin B12) mass conc VITAMIN B-12 (CYANOCOBALAMIN) (66950) [facility] Work Phone: Start: 03-20-2013 Thyrotropin Qn TSH (67164) [facility] Work Phone: Start: 03-20-2013 Blood count complete automated CBC (AUTO) (41813) [facility] Work Phone: Start: 03-20-2013 Comprehensive metabolic panel METABOLIC PANEL, COMPREHENSIVE (35415) [facility] Work Phone: Start: 03-20-2013 CRP mass conc C-REACTIVE PRO TEIN (52841) [facility] Work Phone: Start: 03-20-2013 Nuclear Ab IF titer (S) RAE (ANTINUCLEAR ANTIBODY) (16339) [facility] Work Phone: Start: 03-20-2013 Rheumatoid factor quantitative RHEUMATOID FACTOR-QUANT (56238) [facility] Work Phone: Start: 03-20-2013 Sedimentation rate r bc non-automated SED RATE ERYTHROCYTE (73958) [facility] Work Phone: Start: 2002 DTaP/Tdap/Td Vaccine s (1 - Tdap) DTaP/Tdap/Td Vaccines (1 - Tdap) [facility] Start: 2001 Screening for malignant neoplasm of cervix [facility] Start: 1999 Hepatitis B Vaccine (1 of 3 - 19+ 3-dose series) Hepatitis B Vaccine (1 of 3 - 19+ 3-dose series) [facility] Start: 1999 Hepatitis B Vaccines (1 of 3 - 19+ 3-dose series) Hepatitis B Vaccines (1 of 3 - 19+ 3-dose series) [facility] Start: 1999 Pneumococcal vaccination Pneumococcal Vaccine (1 of 2 - PCV) [facility] Start: 1999 Shingrix Vaccine (1 of 2) Shingrix Vaccine (1 of 2) [facility] Start: 1999 Urine microalbumin profile [facility] Start: 1998 Anxiety Screening Anxiety Screening [facility] Start: 1998 Depression Screening Depression Scre teri [facility] Start: 1998 HEPATITIS C SCREENING HEPATITIS C [facility] Start: 1998 Hepatitis C screening Hepatitis C [facility] Start: 1998 HIV SCREENING HIV SCREENING [facility] Start: 1998 HIV screening HIV Screening [facility] Start: 1992 Adult depression screening assessment DEPRESSION SCREENING [facility] Start: 1986 Pneumococcal vaccination Pneumococcal Vaccine (1 of 2 - PCV) [facility] Start: 1981 MMR Vaccines (1 of 1 - Standard series) MMR Vaccines (1 of 1 - Standard series) [facility] Start: 1980 HEPATITIS B (1 of 3 - 3-dose series) HEPATITIS B (1 of 3 - 3-dose series) [facility] Start: 1980 Hepatitis B Vaccine (1 of 3 - 3-dose series) Hepatitis B Vaccine (1 of 3 - 3-dose series) [facility] Start: 1980 HIV screening HIV Screening [facility] Start: 1980 Lipid panel Lipid Panel [facility] Start: 1980 [facility] End: 01-10-2026 DBT Breast - bilateral screening ROBINA SCREENING W LALITHA Radiology Routine Encounter for gynecological examination (general) (routine) with abnormal findings Encounter for screening mammogram for breast cancer Dense breast tissue 1 Occurrences starting 12/11/2024 until 01/10/2026 [facility] Work Phone: Comment on above: 1 Occurrences starti ng 12/11/2024 until 01/10/2026 Hearing aid examination & selection binaural HEARING AID LILIAN-BINAURAL Procedures Routine Sensorineural hearing loss (SNHL) 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 Ordered: 04/15/2024 [facility] Work Phone: Comment on above: Ordered: 04/15/2024 End: 05-04-2023 ROBINA SCREENING W LALITHA ROBINA SCREENING W LALITHA Radiology Routine Encounter for screening mammogram for breast cancer 1 Occurrences starting 04/04/2022 until 05/04/2023 [facility] Work Phone: Comment on above: 1 Occurrences starti ng 04/04/2022 until 05/04/2023 End: 12-01-2024 ROBINA SCREENING W LALITHA ROBINA SCREENING W LALITHA Radiology Routine Encounter for gynecological examination (general) (routine) without abnormal findings Encounter for screening mammogram for breast cancer 1 Occurrences starting 11/02/2023 until 12/01/2024 [facility] Work Phone: Comment on above: 1 Occurrences starti ng 11/02/2023 until 12/01/2024 End: 03-31-2024 MR Brain WO and W contrast IV [facility] Service Area Work Phone: Comment on above: Once for 1 Occurrenc es starting 03/31/2024 until 03/31/2024 PAP FLUID CERVICAL SCREENING PAP FLUID CERVICAL SCREENING Lab Routine Encounter for gynecological examination (general) (routine) without abnormal findings Screening for cervical cancer Encounter for screening for human papillomavirus (HPV) Ordered: 04/04/2022 [facility] Work Phone: Comment on above: Ordered: 04/04/2022 Patient referral [facility] Work Phone: End: 01-17-2026 US Breast - bilateral US BREAST COMPLETE BILATERAL Radiology Routine Dense breast tissue 1 Occurrences starting 12/18/2024 until 01/17/2026 [facility] Work Phone: Comment on above: 1 Occurrences starti ng 12/18/2024 until 01/17/2026 [facility] Work Phone: [facility] Work Phone: [facility] Work Phone: [facility] Work Phone: [facility] Work Phone: [facility] Work Phone: [facility] Work Phone: [facility] Immunizations Immunization Date Immunization Notes Care Provider Jer umana 08-06-2020 influenza, injectabl e, quadrivalent, contains preservative Eusebia Foster APRN.CNM Work Phone: [facility] 08-06-2020 influenza virus vacc ine, unspecified formulation Screen Wstr [facility] Payers Date Payer Category Payer Self-pay [id number] 2019 Private Health Insurance [facility] CHOICE PLUS [id number] 2019-Present [phone] [address] [place] [address] HMO [id number] 2019 Private Health Insurance [id number] 2019 Private Health Insurance [id number] 1980 Unknown [id number] Unknown [facility] Unknown [id number] Unknown [id number] Unknown [id number] Unknown [id number] Unknown [id number] Unknown [id number] Social History Date Type Detail Facility Alcohol Use: Never smoker [facility] Work Phone: Start: 05-16-2022 End: 11-02-2023 Caffeine Use [facility] [employer] [facility] Work Phone: Comment on above: qd none Exercise History: Exercises regularly. [facility] Work Phone: Living Situation: Lives with spouse. [facility] Work Phone: Number of Child (age 0-17) Dependents: 2. [facility] Work Phone: Tobacco use: Never smoker. [facility] Work Phone: Start: 09-06-2011 End: 11-30-2023 Tobacco smoking status NHIS Never smoked tobacco [facility] Work Phone: Start: 09-06-2011 End: 05-16-2022 Tobacco use and exposure Smokeless tobacco non-user [facility] Work Phone: Start: 04-04-2022 End: 11-02-2023 Alcohol intake Current drinker of alcohol (finding) [facility] Start: 09-08-2015 History SDOH Alcohol Comment occasional [facility] Start: 1980 Sex Assigned At Female [facility] Start: 05-06-2022 End: 03-31-2024 Exposure to SARS-CoV-2 (event) Not sure [facility] Start: 11-06-2019 End: 11-30-2023 Tobacco smoking status NHIS Unknown if ever smoked [facility] Start: 05-16-2022 End: 11-02-2023 Tobacco use panel [facility] National Score (1-100), lower number is lower risk 60 [facility] Start: 08-06-2020 Gender identity Identifies as female gender (finding) [facility] Start: 08-06-2020 Sexual orientation Heterosexual (fin ding) [facility] Start: 1980 Sex assigned at Not on file [facility] Work Phone: Start: 12-11-2024 Alcoholic beverage intake Ex-drinker (finding) [facility] Start: 01-07-2025 End: 01-15-2025 Sex Female (finding) [facility] Clinical Notes 04-04-2022 to 12-18-2024 Mercedez Armstrong Mammo Tech - 12/18/2024 7:50 AM Eusebia Rodriguez APRN.CNM - 12/11/2024 8:01 AM Rivera Mazariegos PA-C - 04/15/2024 11:10 AM EDTPatient InstructionsPatient Instructions Note Date & Type Note Facility 12-18-2024 History of Presen t illness Narrative Radiology Service Progress Note PATIENT NAME: Karen Hutson DATE OF SERVICE: December 18, 2024 TIME: 7:36 AM PATIENT IDENTITY VERIFICATION COMPLETED USING TWO (2) IDENTIFIERS: Name and Date of confirmed by patient verbally. FALL SCREENING: Has the patient had 2 falls in the last year or 1 fall with injury or currently using an Ambulatory Assistive Device (Walker, Cane, Wheelchair, Crutches, etc.)? No PATIENT GENDER DATA: Assigned female at . status: : No status: NO. PATIENT RELEVANT IMPLANT DATA REVIEWED: Not Applicable PATIENT PRESENTS WITH AN IMPLANTABLE OR ATTACHED HORTICULTURE WORKER: No RADIOLOGY DEPARTMENT: Mammography PERIPHERAL IV DATA: Not applicable SIGNED BY: Maite Ferrell December 18, 2024 7:36 AM documented in this encounter [facility] 12-18-2024 Note HNO ID: [id number] Author: MERCEDEZ ARMSTRONG Mammo Tech Service: ? Author Type: Log Preparer Type: Progress Notes Filed: 12/18/2024 07:37 Note Text: Radiology Service Progress Note PATIENT NAME: Karen Hutson DATE OF SERVICE: December 18, 2024 TIME: 7:36 AM PATIENT IDENTITY VERIFICATION COMPLETED USING TWO (2) IDENTIFIERS: Name and Date of confirmed by patient verbally. FALL SCREENING: Has the patient had 2 falls in the last year or 1 fall with injury or currently using an Ambulatory Assistive Device (Walker, Cane, Wheelchair, Crutches, etc.)? No PATIENT GENDER DATA: Assigned female at . status: : No status: NO. PATIENT RELEVANT IMPLANT DATA REVIEWED: Not Applicable PATIENT PRESENTS WITH AN IMPLANTABLE OR ATTACHED HORTICULTURE WORKER: No RADIOLOGY DEPARTMENT: Mammography PERIPHERAL IV DATA: Not applicable SIGNED BY: Maite Ferrell December 18, 2024 7:36 AM [facility] 12-11-2024 Note HNO ID: [id number] Author: EUSEBIA FOSTER APRN.CNM Service: ? Author Type: [employer] Consultant Type: Progress Notes Filed: 12/11/2024 08:32 Note Text: Karen is a 44 year old who presents for an annual gynecologic exam without complaints. Currently on methotrexate and feeling better. 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 History LMP: 11/21/2024 (Exact Date), Having periods Age at Menarche: 13 Age at First : Age at 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 No bloating, early satiety, indigestion, or increased flatulence. Bladder: No dysuria, gross hematuria, urinary frequency, urinary urgency, positive for stress incontinence Breast: No breast lumps, nipple d/c, overlying skin changes, redness or skin retraction. Allergies and current medication updated:Yes SENSITIVE EXAM: The sensitive examination was discussed with the Patient or Patient's Authorized Labor Supervisor. As applicable, any other physician, advance practice provider, medical student, or other health professional student that will be observing or involved in the sensitive examination for educational or training purposes was discussed with the Patient or Authorized Labor Supervisor. The Patient or Authorized Labor Supervisor has agreed to proceed with the sensitive examination. (Sensitive examination includes inspection and/or palpation of the breasts, pelvis, prostate and anorectal regions). EXAM: BP 126/84 Ht 5' 4 (1.63m) Wt 228 lb (103.4kg) LMP 11/21/2024 BMI 39.12 kg/(m2). GENERAL: pleasant, female in no apparent distress HEENT: Normocephalic and atraumatic NECK: Supple and full range of motion DERMATOLOGY: Normal and without lesions BREAST: soft, non-tender, symmetric, no dominant mass, normal nipple-areolar complex, no lymphadenopathy, no nipple discharge, and fibrocystic changes CHEST: Normal inspiratory effort ABDOMEN: soft, non-tender, and no masses PELVIC: external genitalia normal, normal Bartholin's glands, urethra, Klagetoh's glands, no vulvar lesions, no cervical lesions, good vaginal support, physiologic discharge present, normal appearing perineal body and perianal region, well estrogenized BIMANUAL: uterus normal size, shape and consistency, no adnexal masses, non-tender, and no cervical motion tenderness RECTOVAGINAL: deferred. NEURO: alert and oriented x3,exam grossly non-focal EXTREMITIES: normal ASSESSMENT/PLAN: 1) Health maintenance: Pap/HPV up to date. Mammogram ordered. Nutrition, exercise and routine health maintenance exams reviewed. Lipids/glucose: followed by PCP 2) Contraception: vasectomy. Contraceptive options reviewed and information provided. 3) STD screening: Declined STD check. 4) Follow up one year or sooner as needed Eusebia Foster APRN.[facility] 12-11-2024 History of Presen t illness Narrative Karen is a 44 year old who presents for an annual gynecologic exam without complaints. Currently on methotrexate and feeling better. 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 History LMP: 11/21/2024 (Exact Date), Having periods Age at Menarche: 13 Age at First : Age at 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 No bloating, early satiety, indigestion, or increased flatulence. Bladder: No dysuria, gross hematuria, urinary frequency, urinary urgency, positive for stress incontinence Breast: No breast lumps, nipple d/c, overlying skin changes, redness or skin retraction. Allergies and current medication updated:Yes SENSITIVE EXAM: The sensitive examination was discussed with the Patient or Patient's Authorized Labor Supervisor. As applicable, any other physician, advance practice provider, medical student, or other health professional student that will be observing or involved in the sensitive examination for educational or training purposes was discussed with the Patient or Authorized Labor Supervisor. The Patient or Authorized Labor Supervisor has agreed to proceed with the sensitive examination. (Sensitive examination includes inspection and/or palpation of the breasts, pelvis, prostate and anorectal regions). EXAM: BP 126/84 Ht 5' 4 (1.63m) Wt 228 lb (103.4kg) LMP 11/21/2024 BMI 39.12 kg/(m^2). GENERAL: pleasant, female in no apparent distress HEENT: Normocephalic and atraumatic NECK: Supple and full range of motion DERMATOLOGY: Normal and without lesions BREAST: soft, non-tender, symmetric, no dominant mass, normal nipple-areolar complex, no lymphadenopathy, no nipple discharge, and fibrocystic changes CHEST: Normal inspiratory effort ABDOMEN: soft, non-tender, and no masses PELVIC: external genitalia normal, normal Bartholin's glands, urethra, Klagetoh's glands, no vulvar lesions, no cervical lesions, good vaginal support, physiologic discharge present, normal appearing perineal body and perianal region, well estrogenized BIMANUAL: uterus normal size, shape and consistency, no adnexal masses, non-tender, and no cervical motion tenderness RECTOVAGINAL: deferred. NEURO: alert and oriented x3,exam grossly non-focal EXTREMITIES: normal ASSESSMENT/PLAN: 1) Health maintenance: Pap/HPV up to date. Mammogram ordered. Nutrition, exercise and routine health maintenance exams reviewed. Lipids/glucose: followed by PCP 2) Contraception: vasectomy. Contraceptive options reviewed and information provided. 3) STD screening: Declined STD check. 4) Follow up one year or sooner as needed Eusebia Foster APRN.CNM documented in this encounter [facility] 04-15-2024 Note HNO ID: [id number] Author: RIVERA SALCIDO PA-C Service: ? Author Type: Physician Apricot Packer Type: Progress Notes Filed: 04/15/2024 11:17 Note Text: CC: Karen Hutson is 43 year old female who is self-referred for hearing loss. Assessment and Plan: (H90.A21) Sensorineural hearing loss (SNHL) 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 (primary encounter diagnosis) ~audiogram demonstrates low tone SNHL of right ear and SNHL BL at 2000 Hz. Reports previous MRI brain with ENT that was normal ~low tone SNHL in consideration for Endolymphatic hydrops, however given this wasn't a sudden loss and not demonstrating symptoms historically, will observe ~ordered Hearing Aid Evaluation ~follow up with me as needed HPI: Karen is a 43 year old who reports hearing loss. She notes this is in both ears and has been a gradual change. Struggles to hear her teenage sons when they talk. Denies otalgia, otorrhea, h/o ear surgeries, or tubes. Left ear hears better than the right ear for many years. No tinnitus. Occasional vertigo lasting a few minutes. FH of mother with vertigo that lasts hours and unilateral hearing loss of her grandfather. Recalls she saw a ENT close to home who performed an MRI of her brain related to her hearing loss which is reportedly normal. ALLERGIES No Known Allergies Current Outpatient Medications Medication Sig methotrexate 2.5 mg tablet Clobetasol Propionate (TEMOVATE) 0.05 % external solution PRN No current facility-administered medications for this visit. PAST MEDICAL HISTORY Diagnosis Date Psoriasis of scalp PAST SURGICAL HISTORY Procedure Laterality Date DENTAL IMPLANT 08/2019 EXTRACTION, ERUPTED TOOTH OR EXPOSED ROOT (ELEVATION AND/OR FORCEPS REMOVAL) PAST SURGICAL HISTORY OF Right 2004 breast biopsy Social History: Social History Tobacco Use Smoking status: Never Smokeless tobacco: Never Vaping Use Vaping Use: Never used Substance Use Topics Alcohol use: Yes Comment: occasional Drug use: No FAMILY HISTORY Problem Relation Age of Onset Heart Maternal Grandfather Prostate Cancer Father Breast Cancer Maternal Grandmother Breast Cancer Paternal Grandmother other (lupus) Mother Review Of Systems GENERAL: No weight loss, malaise or fevers. HEENT: Negative for frequent or significant headaches, Ears Positive for hearing loss I have confirmed and edited as necessary the ROS obtained by others. Rivera Salcido PA-C PHYSICAL EXAM: Temp 36.9 ?C (98.4 ?F) LMP 10/25/2023 No weight on file for this encounter. General appearance: Well appearing, alert, in no acute distress, well-hydrated, well nourished. Cranial Nerves: III-XII: grossly intact Skin: Skin color, texture, turgor normal, no suspicious rashes or lesions Head: normocephalic, no masses, lesions, tenderness or abnormalities Ears: Bilateral external ear(s) normal, external auditory canal(s) clear, tympanic membrane(s) normal. Neuro: Gait normal. Mental status revealed patient to be alert and oriented. Mood is appropriate Rivera Salcido PA-C Medical Decision Making: Problems: Moderate: 1+ chronic illnesses with change Data: Unique test result(s) reviewed: 1 Risk: Low: Low risk from testing/treatment Medical Decision Making Level: 3 - Low [facility] 04-15-2024 History of Presen t illness Narrative CC: Karen Hutson is 43 year old female who is self-referred for hearing loss. Assessment and Plan: (H90.A21) Sensorineural hearing loss (SNHL) 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 (primary encounter diagnosis) ~audiogram demonstrates low tone SNHL of right ear and SNHL BL at 2000 Hz. Reports previous MRI brain with ENT that was normal ~low tone SNHL in consideration for Endolymphatic hydrops, however given this wasn't a sudden loss and not demonstrating symptoms historically, will observe ~ordered Hearing Aid Evaluation ~follow up with me as needed HPI: Karen is a 43 year old who reports hearing loss. She notes this is in both ears and has been a gradual change. Struggles to hear her teenage sons when they talk. Denies otalgia, otorrhea, h/o ear surgeries, or tubes. Left ear hears better than the right ear for many years. No tinnitus. Occasional vertigo lasting a few minutes. FH of mother with vertigo that lasts hours and unilateral hearing loss of her grandfather. Recalls she saw a ENT close to home who performed an MRI of her brain related to her hearing loss which is reportedly normal. ALLERGIES No Known Allergies Current Outpatient Medications Medication Sig methotrexate 2.5 mg tablet Clobetasol Propionate (TEMOVATE) 0.05 % external solution PRN No current facility-administered medications for this visit. PAST MEDICAL HISTORY Diagnosis Date Psoriasis of scalp PAST SURGICAL HISTORY Procedure Laterality Date DENTAL IMPLANT 08/2019 EXTRACTION, ERUPTED TOOTH OR EXPOSED ROOT (ELEVATION AND/OR FORCEPS REMOVAL) PAST SURGICAL HISTORY OF Right 2004 breast biopsy Social History: Social History Tobacco Use Smoking status: Never Smokeless tobacco: Never Vaping Use Vaping Use: Never used Substance Use Topics Alcohol use: Yes Comment: occasional Drug use: No FAMILY HISTORY Problem Relation Age of Onset Heart Maternal Grandfather Prostate Cancer Father Breast Cancer Maternal Grandmother Breast Cancer Paternal Grandmother other (lupus) Mother Review Of Systems GENERAL: No weight loss, malaise or fevers. HEENT: Negative for frequent or significant headaches, Ears Positive for hearing loss I have confirmed and edited as necessary the ROS obtained by others. Rivera Salcido PA-C PHYSICAL EXAM: Temp 36.9 C (98.4 F) LMP 10/25/2023 No weight on file for this encounter. General appearance: Well appearing, alert, in no acute distress, well-hydrated, well nourished. Cranial Nerves: III-XII: grossly intact Skin: Skin color, texture, turgor normal, no suspicious rashes or lesions Head: normocephalic, no masses, lesions, tenderness or abnormalities Ears: Bilateral external ear(s) normal, external auditory canal(s) clear, tympanic membrane(s) normal. Neuro: Gait normal. Mental status revealed patient to be alert and oriented. Mood is appropriate Rivera Salcido PA-C Medical Decision Making: Problems: Moderate: 1+ chronic illnesses with change Data: Unique test result(s) reviewed: 1 Risk: Low: Low risk from testing/treatment Medical Decision Making Level: 3 - Low documented in this encounter [facility] 04-15-2024 Instructions Rivera Salcido PA-C - 04/15/2024 11:08 AM EDT Call [phone] to schedule the hearing aid evaluation ~~~~~~~~~~~~~~~~~~~~~~~~~~~~~~ The Hearing Aid Evaluation appointment with [facility] is a $100 charge. Hearing aids run from $1,300-5,500 per pair and the corporate fitness program coordinator can review those details at the appointment if you wish to proceed. I recommend calling insurance to inquire about cost coverage for hearing aids. They will also let you trial a pair for 30 days, but it will require the full cost of the hearing aids before doing so. If you don't like them, you can return them and get refunded. documented in this encounter [facility] 02-28-2024 Instructions Meron Brooks AUD - 02/28/2024 1:56 PM EDT Images from the original note were not included. [facility] [place] Section of Audiology Thank you for trusting the [facility] Audiology department with your hearing healthcare today. We appreciated the opportunity to meet with you today to assess your hearing status and needs. For you to be able to hear, the brain requires sound to travel through the entire auditory system which involves the outer ear, middle ear, inner ear, and auditory nerve. Symptoms of hearing loss, tinnitus, dizziness, or sensations in the ear may have many different causes. These symptoms may be due to problems associated with your ear, vision, brain, heart, medications, other health conditions, or history of exposure to loud noises. Today you completed a comprehensive evaluation of your auditory system. TEST SUMMARY: Based on today's evaluation, your results revealed sensorineural hearing loss in the right ear. Sensorineural Hearing Loss: Hearing loss means we had to turn the sound up, outside the range of normal, in order for you to be able to hear it. This type of hearing loss affects the inner ear (cochlea) or auditory nerve. Loud noises, diseases or the aging process often cause it. Children are prone to this type due to congenital conditions (present at ), trauma during childbirth, head injuries or infections. Sensorineural hearing loss is often permanent. Hearing aids and hearing assistive devices can help. Based on today's test results and if you feel like your hearing loss is impacting your communication with others, you are a candidate for hearing technology. To schedule an appointment to discuss options for hearing technology, please call our scheduling line at [phone] and ask for a Hearing Aid Evaluation appointment at your preferred [facility] location. You can request this appointment with your corporate fitness program coordinator through [employer], as well. In order to investigate a potential insurance benefit for hearing aids, please plan to schedule your appointment for at least 1 week from the time of your phone call so that your insurance benefit can be verified. If there is no insurance benefit, please be aware there is a $100 [id number] fee due at time of service. Listed below are some communication strategies that help you hear others: 1) Facing communication partner. 2) Removing physical or visual barriers. 3) Maintaining a maximum distance for 6-10 feet from communication partner. 4) Encouraging communication partners to use clear speech and get their attention before speaking. 5) Reducing or removing background noise sources. 6) Taking turns speaking in conversation. 7) Ensuring the listener and speaker's voice are level with each other (both seated or both standing). Recommendations: * Consider otologic referral for further evaluation of asymmetric sensorineural hearing loss. * Continue to monitor hearing and have regular hearing assessments. * Pending medical clearance, call [phone] to schedule an appointment to assess your need for hearing aids. Request a HAE appointment. * Encouraged patient to reach out to insurance provider to determine if they are eligible for a hearing aid benefit. Patient was advised that if they return to [facility], the cost of hearing aids would likely be [id number]. Thank you for trusting and choosing [facility] Audiology with your hearing care needs. Please do not hesitate to reach out with any questions or concerns. Sincerely, Geo Albert, [facility] Clinical and Hearing Implant Top Lift Trimmer documented in this encounter [facility] 02-28-2024 History of Presen t illness Narrative [facility] [place] AUDIOLOGIC EVALUATION REPORT Name: Karen Hutson [facility]#: [id number] Date of Service: 02/28/2024 Date of : 1980 Age: [age] year old Referred by: No referring provider defined for this encounter. Referred for: Evaluation of suspected change in hearing, tinnitus, or balance. Referral documented: No referral on file Patient's major complaints: Reduced hearing right ear greater than left ear Karen Hutson was seen for an initial audiologic evaluation. Hearing loss: Gradually worsening hearing in both ears, worsening over the last few years. Having to ask her teenage sons and for repetition frequently. Left ear hearing is better than the right. 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 Refer to the Auditory Test Record for complete audiometric results. The patient was counseled about the test findings and appropriate audiologic recommendations were made. SUMMARY: Audiogram can be viewed under the Proc tab. OTOSCOPY RIGHT EAR: Otoscopic inspection revealed ear canal was clear with an identifiable cone of light. LEFT EAR: Otoscopic inspection revealed ear canal was clear with an identifiable cone of light. TYMPANOMETRY Description of procedure: This test is an objective evaluation of middle ear function. CPT code: 67409 RIGHT EAR: Normal ME function. LEFT EAR: Normal ME function. ACOUSTIC REFLEXES Description of procedure: This test is an objective measure of auditory and facial nerve pathways. CPT code: 20931, 80962 RIGHT EAR PROBE EAR: (ipsi right stimulus ear; contralateral left stimulus ear): Acoustic Reflex Pattern Did not test Acoustic Reflex Decay (left stimulus ear): Did not test. LEFT EAR PROBE EAR: (ipsi left stimulus ear; contralateral right stimulus ear): Acoustic Reflex Pattern Did not test Acoustic Reflex Decay (right stimulus ear):Did not test. PURE TONE AUDIOMETRY AND SPEECH TESTING Description of procedure: This test is an objective evaluation hearing sensitivity via air and bone conduction and speech recognition testing. CPT code: 70949 RIGHT EAR: Hearing Sensitivity: Mild sensorineural hearing loss rising to within normal limits 0681-6367 Hz. Word Recognition Score: Excellent (100%). WRS is consistent with hearing sensitivity. Words were presented at 55 dB HL which approximates (45-55 dB HL) intensity level for average conversational speech. The NU-6 Ordered by Difficulty Word List (10 words) was used for testing. LEFT EAR: Hearing Sensitivity: Essentially within normal limits Word Recognition Score: Excellent (100%). WRS is consistent with hearing sensitivity. Words were presented at 50 dB HL which approximates (45-55 dB HL) intensity level for average conversational speech. The NU-6 Ordered by Difficulty Word List (10 words) was used for testing. RECOMMENDATIONS * Consider otologic referral for further evaluation of asymmetric sensorineural hearing loss. * Continue to monitor hearing and have regular hearing assessments. * Pending medical clearance, call [phone] to schedule an appointment to assess your need for hearing aids. Request a HAE appointment. * Encouraged patient to reach out to insurance provider to determine if they are eligible for a hearing aid benefit. Patient was advised that if they return to [facility], the cost of hearing aids would likely be [id number]. Geo Albert, [facility] Clinical and Hearing Implant Top Lift Trimmer BUSTOS Abbreradha- iation Definition Degree of hearing sensitivity dB range WNL within normal limits WNL 0 - 20 SNHL sensorineural hearing loss Mild 20-40 CHL conductive hearing loss Moderate 40-55 MHL mixed hearing loss Moderately-Severe 55-70 WRS word recognition score Severe 70-90 ME middle ear Profound 90 + TM tympanic membrane documented in this encounter [facility] 02-28-2024 Note HNO ID: [id number] Author: MERON BROOKS AUD Service: ? Author Type: Top Lift Trimmer Type: Progress Notes Filed: 02/28/2024 13:56 Note Text: [facility] [place] AUDIOLOGIC EVALUATION REPORT Name: Karen Hutson CC#: [id number] Date of Service: 02/28/2024 Date of : 1980 Age: [age] year old Referred by: No referring provider defined for this encounter. Referred for: Evaluation of suspected change in hearing, tinnitus, or balance. Referral documented: No referral on file Patient's major complaints: Reduced hearing right ear greater than left ear Karen Hutson was seen for an initial audiologic evaluation. Hearing loss: Gradually worsening hearing in both ears, worsening over the last few years. Having to ask her teenage sons and for repetition frequently. Left ear hearing is better than the right. 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 Refer to the Auditory Test Record for complete audiometric results. The patient was counseled about the test findings and appropriate audiologic recommendations were made. SUMMARY: Audiogram can be viewed under the Proc tab. OTOSCOPY RIGHT EAR: Otoscopic inspection revealed ear canal was clear with an identifiable cone of light. LEFT EAR: Otoscopic inspection revealed ear canal was clear with an identifiable cone of light. TYMPANOMETRY Description of procedure: This test is an objective evaluation of middle ear function. CPT code: 02431 RIGHT EAR: Normal ME function. LEFT EAR: Normal ME function. ACOUSTIC REFLEXES Description of procedure: This test is an objective measure of auditory and facial nerve pathways. CPT code: 03449, 73785 RIGHT EAR PROBE EAR: (ipsi right stimulus ear; contralateral left stimulus ear): Acoustic Reflex Pattern Did not test Acoustic Reflex Decay (left stimulus ear): Did not test. LEFT EAR PROBE EAR: (ipsi left stimulus ear; contralateral right stimulus ear): Acoustic Reflex Pattern Did not test Acoustic Reflex Decay (right stimulus ear):Did not test. PURE TONE AUDIOMETRY AND SPEECH TESTING Description of procedure: This test is an objective evaluation hearing sensitivity via air and bone conduction and speech recognition testing. CPT code: 50270 RIGHT EAR: Hearing Sensitivity: Mild sensorineural hearing loss rising to within normal limits 4228-1034 Hz. Word Recognition Score: Excellent (100%). WRS is consistent with hearing sensitivity. Words were presented at 55 dB HL which approximates (45-55 dB HL) intensity level for average conversational speech. The NU-6 Ordered by Difficulty Word List (10 words) was used for testing. LEFT EAR: Hearing Sensitivity: Essentially within normal limits Word Recognition Score: Excellent (100%). WRS is consistent with hearing sensitivity. Words were presented at 50 dB HL which approximates (45-55 dB HL) intensity level for average conversational speech. The NU-6 Ordered by Difficulty Word List (10 words) was used for testing. RECOMMENDATIONS * Consider otologic referral for further evaluation of asymmetric sensorineural hearing loss. * Continue to monitor hearing and have regular hearing assessments. * Pending medical clearance, call [phone] to schedule an appointment to assess your need for hearing aids. Request a HAE appointment. * Encouraged patient to reach out to insurance provider to determine if they are eligible for a hearing aid benefit. Patient was advised that if they return to [facility], the cost of hearing aids would likely be [id number]. Geo Albert, [facility] Clinical and Hearing Implant Top Lift Trimmer BUSTOS Abbrev- iation Definition Degree of hearing sensitivity dB range WNL within normal limits WNL 0 - 20 SNHL sensorineural hearing loss Mild 20-40 CHL conductive hearing loss Moderate 40-55 MHL mixed hearing loss Moderately-Severe 55-70 WRS word recognition score Severe 70-90 ME middle ear Profound 90 + TM tympanic membrane [facility] 12-03-2023 Miscellaneous Notes December 03, 2023 PID: [id number] Karen Hutson [address] [place] [address] Dear Ms. Hutson, We are pleased to inform you that the results of your recent breast imaging exam on 12/03/2023 are normal. Early detection of cancer is very important. We also understand recommendations regarding breast cancer screening are controversial. Please discuss with your primary care provider which strategy is best for you and whether a mammogram is right for you. Your imaging studies and report will be kept on file at [facility] as part of your permanent medical record and are available for your continuing care. Thank you for allowing us to help in meeting your health care needs. Sincerely, Dr. Belcher Interpreting Radiologist [facility] (Normal over 40) documented in this encounter [facility] 12-03-2023 History of Presen t illness Narrative Radiology Service Progress Note PATIENT NAME: Karen Hutson DATE OF SERVICE: December 03, 2023 TIME: 7:56 AM PATIENT IDENTITY VERIFICATION COMPLETED USING TWO (2) IDENTIFIERS: Name and Date of confirmed by patient verbally. FALL SCREENING: Has the patient had 2 falls in the last year or 1 fall with injury or currently using an Ambulatory Assistive Device (Walker, Cane, Wheelchair, Crutches, etc.)? No PATIENT GENDER DATA: Female. status: : No status: NO. PATIENT RELEVANT IMPLANT DATA REVIEWED: Not Applicable PATIENT PRESENTS WITH AN IMPLANTABLE OR ATTACHED HORTICULTURE WORKER: No RADIOLOGY DEPARTMENT: Mammography PERIPHERAL IV DATA: Not applicable SIGNED BY: Gerald [email or web address] Jennifer December 03, 2023 7:56 AM documented in this encounter [facility] 11-02-2023 Instructions Eusebia Foster APRN.CNM - 11/02/2023 8:40 AM EST Non-Hormonal [...] penis or fingers just before sex. Coconut, [place], Avocado or Peanut oil- natural oils are [...] are available in pharmacies and online. Restore- Motionloft.Modebo Replens Chas Feminease Moist Again K-Y Liquid beads Products to assist with maintaining vaginal ph IsoFresh [email or web address] BiopHresh Rephresh documented in this encounter [facility] 11-02-2023 History of Presen t illness Narrative Physicist Astrophysics offered: Patient declinesReble Kinney is a 43 year old who presents [...] L2 SAB1 IAB0 Ectopic0 Multiple0 Live Births2 Photoengraving Supervisor History LMP: 03/21/2022, Having periods Age at Menarche: Age at First : Age at Menopause: Photoengraving Supervisor History Comments: Sexual Activity: Yes; Male Contraception: [...] external genitalia normal, normal Bartholin's glands, urethra, Klagetoh's glands, no vulvar lesions, no cervical lesions, [...] one year or sooner as needed Eusebia Foster APRN.CNM documented in this encounter [facility] 09-15-2022 History of Presen t illness Narrative Radiology Service Progress Note PATIENT NAME: Karen Hutson DATE OF SERVICE: September 15, 2022 TIME: [...] 2022 7:36 AM documented in this encounter [facility] 06-06-2022 Miscellaneous Notes [employer] message was reviewed on 06/02/2022. Closed. Call [...] counter vitamin D 1,000 units every day) Steven, Dr. Payton documented in this encounter [facility] 05-16-2022 Instructions Latoya Macdonald MD - 05/16/2022 1:24 PM EDT Saliva cortisol test at 11 PM Blood work in the morning fasting documented in this encounter [facility] 05-16-2022 History of Presen t illness Narrative Images from the original note were not included. ENDOCRINOLOGY INITIAL CONSULT REASON FOR CONSULT: Evaluation of hyperandrogenism REQUESTING PHYSICIAN: Ariana Ceballos DO History of Present Illness Karen Hutson is a 41 year old female presenting [...] 80 Resp 16 Ht 161.3 cm (5' 3.5) Wt 102.1 kg (225 lb) LMP 03/21/2022 [...] Latoya Macdonald MD documented in this encounter [facility] 04-04-2022 Instructions Eusebia Foster APRN.BHARATI - 04/04/2022 8:44 AM EDT Non-Hormonal [...] penis or fingers just before sex. Coconut, [place], Avocado or Peanut oil- natural oils are [...] are available in pharmacies and online. Restore- goodcleanMicrovi Biotechnologiesve.Modebo Replens Chas Feminease Moist Again K-Y Liquid beads Products to assist with maintaining vaginal ph IsoFresh [email or web address] BiopHresh Rephresh documented in this encounter [facility] 04-04-2022 History of Presen t illness Narrative [...] No Vaginal dryness: Yes Insomnia: yes Exercise: Posibl. body programs- 4 days week Diet: Regular- discussed intermittent fasting and low carb options Seatbelt use: Yes OB History T2 L2 SAB1 IAB0 Ectopic0 Multiple0 Live Births2 Photoengraving Supervisor History LMP: 03/21/2022, Having periods Age at Menarche: Age at First : Age at Menopause: Photoengraving Supervisor History Comments: Sexual Activity: Yes; Male Contraception: [...] external genitalia normal, normal Bartholin's glands, urethra, Klagetoh's glands, no vulvar lesions, no cervical lesions, [...] care RTO- 1 year or sooner Eusebia Foster APRN.CNM documented in this encounter [facility] Discharge summary Note Date/Time November 30, 2023 9:19am [facility] Medical Records Department [address] [place] [id number] Emergency Department Summary 11/30/23 MR#: [id number] Acct: [id number] Name: CARYLKAREN HANSEL Rep #: [id number] : 1980 43 From: Will Fox MD PCP: ARISTIDES Palacios Status:REG ER Location: ED HPI HPI - GI History of Present Illness Chief Complaint: Abd Pain Informant: patient Abdominal Pain/Flank Pain Onset: Today and Hours Context: Sudden Onset Timing: Continuous Quality: Cramping and Sharp Location: RLQ Current Severity: Moderate Maximum Severity: Moderate Worsened by: Nothing Relieved by: Nothing Nausea/Vomiting/Emesis GI Symptom: Positive for Nausea and Vomiting Onset: Today Severity: Moderate Diarrhea/Melena/Hematochezia GI Symptom: Negative for Diarrhea, Melena or Hematochezia Associated Symptoms Associated Symptoms: Negative for Dysuria, Frequency, Hematuria or Urgency Narrative Narrative: 43-year-old female history of psoriatic arthritis and hypertension. Right lowerquadrant abdominal pain began today around 5 AM and worsened at 630. Associatednausea and vomiting 5 times. No dysuria. No constipation. No diarrhea. Last menstrual period was on Sunday. No prior history of similar pain. Denies anyfever. No prior abdominal surgeries. Prior similar symptoms: No Recent Illness/Hospitalization: No PFSH PFSH Medical History (Updated 11/30/23 @ 10:[address] Will Fox MD) Migraine Psoriasis Psoriatic arthritis Home Medications amoxicillin 875 mg-potassium clavulanate 125 mg tablet 1 tab PO BID #20 tabs 09/16/21 [Rx Last Taken Unknown] ondansetron 4 mg disintegrating tablet 4 mg PO Q6H PRN nausea and vomiting #7 tabs 11/30/23 [Rx Last Taken Unknown] oxycodone-acetaminophen 5 mg-325 mg tablet (Percocet) 1 tab PO Q4H PRN pain 3 days #12 tabs 11/30/23 [Rx Last Taken Unknown] Allergy/AdvReac Type Severity Reaction Status Date / Time No Known Allergies Allergy Verified 09/09/23 08:22 Family History Mother Lupus (systemic lupus erythematosus) Uncle Thyroid disorder Father Hypertension Surgical History Dental root implant present H/O wisdom tooth extraction Social History Smoking Status: Never smoker alcohol intake: never ROS ROS ED ROS Narrative Right lower quadrant abdominal pain. Nausea and vomiting. Review of Systems ROS Unobtainable: Denies due to encephalopathy Constitutional Constitutional ED: Denies chills or fever(s) ENT ENT ED: Denies ear pain Cardiovascular Cardiovascular: Denies chest pain Respiratory/Chest Respiratory/Chest: Denies cough or dyspnea Gastrointestinal Gastrointestinal: Reports abdominal pain, nausea and vomiting; Denies constipation, diarrhea or melena Genitourinary Genitourinary ED: Denies dysuria or hematuria Musculoskeletal Musculoskeletal: Denies arthralgias, back pain, myalgias or neck pain Integumentary Denies abscess or Abrasions Neurologic Neurologic: Denies headache(s) Psychiatric Psychiatric: Denies anxiety or depression Endocrine Endocrinology: Denies polydipsia Hematologic/Lymphatic Hematologic/Lymphatic: Denies easy bleeding, easy bruising or lymphadenopathy Allergic/Immunologic Allergic/Immunologic ED: Denies mouth swelling, tongue swelling or urticaria EXAM Physical Exam Narrative Exam Narrative: Upjovha-nsjz-dea female vital signs stable afebrile. HEENT exam unremarkable. Neck nontender. Lungs clear. Heart regular rhythm no murmur rate about 70. Abdomen soft nondistended normal bowel sounds. Tender in the right lower quadrant. No hernia or mass. No distention. No obstruction. Left side of theabdomen and right upper quadrant unremarkable. No Sierra sign. No signs of trauma. Back nontender. Moving all 4 extremities. Calves are nontender without edema or cords. Patient is awake and alert. No focal motor deficits. Const Vital Signs: 11/30/23 08:44 11/30/23 10:15 Temperature 99 F 98.7 F Temperature Source Temporal Oral Pulse Rate 72 61 Respiratory Rate 18 12 Blood Pressure 146/90 H 151/82 H Blood Pressure Mean 108 105 Pulse Ox 100 97 Oxygen Delivery Method Room Air Room Air Positive well nourished and well developed; Negative for cachectic, contracturesor unkempt General Appearance ED: well developed and NAD; Negative for unkempt, cachectic, contractures or pallor Nutritional Appearance: Negative for cachectic HEENT Reports moist mucous membranes; Denies dry mucous membranes normocephalic and atraumatic; Negative for trauma or tenderness Mouth ED: No dry mucous membranes Mouth: No dry mucous membranes Eyes PERRL and EOMs intact bilaterally General Eye ED: Negative for pale conjunctiva or scleral icterus Neck no lymphadenopathy, supple and no JVD General: Negative for tenderness Carotids: Negative for other Lymph Lymphatic: Negative for other Resp normal respiratory effort and clear to auscultation bilaterally Effort and Inspection: Negative for respiratory distress Auscultation: Negative for rales, rhonchi, wheezes or diminished lung sounds Cardio regular rate, regular rhythm, S1 normal heart sound, S2 normal heart sound and no murmurs Rate: Negative for bradycardia or tachycardic Rhythm: Negative for abnormal rhythm GI non-distended and no masses; Negative for non-tender Inspection: Negative for abdominal distention Auscultation: normoactive bowel sounds Palpation: soft; Negative for guarding or rebound tenderness present Back/Spine no CVA tenderness General Back: Negative for CVA tenderness Cervical Spine: Negative for cervical spine tenderness Thoracic Spine / Upper Back: Negative for thoracic spinal tenderness Lumbar Spine / Lower Back: Negative for lumbar spinal tenderness Coccyx: Negative for other Extremity full ROM General Extremety ED: Negative for edema or tenderness General Extremity: Negative for edema Neuro CN's II-XII intact bilaterally and moves all extremities Sensorium / Orientation: alert, oriented to person, oriented to place and oriented to time; Negative for orientation impaired, confused, lethargic or stuporous Motor Exam: strength 5/5 throughout Psych mental status grossly normal and thought process normal Appearance: Negative for unkempt Attitude: No agitated Mood & Affect: Negative for depressed, anxious or tearful Skin General Skin Exam: Negative for jaundice or pallor Lesions: no lesions Rashes: no rashes Trauma: Negative for abrasion Nails: Negative for discolored MDM MDM MDM Narrative Medical decision making narrative: 43-year-old female right lower quadrant abdominal pain that began around 5 AM this morning. Obviously could be appendicitis versus kidney stone versus other etiologies. There is no obvious hernia. Currently it seems too low to be her gallbladder. There is no signs of obstruction. Treated with IV fluids for nausea and vomiting. Zofran for nausea morphine for pain. CAT scan labs are pending. Repeat exam patient doing well at 10:35 AM. Pain improved with the medication. Currently her right lower quadrant sergo exam is nontender. We have gone over her labs. We are waiting on urine sample and the CAT scan read. I did review the CAT scan myself already. Patient doing very well at 1052. Pain is resolved. We went over her CAT scan results. Awaiting on the UA. History & Record Review Discussion w/independent historian: Patient and Family Additional record(s) reviewed:: Prior inpatient record, Prior outpatient record,Prior ED visit and Prior labs Lab Data Attestation: I reviewed the patient's lab results. Lab results narrative: CBC shows a white count of 10. H&H 12 and 38. Platelets 457. Electrolytes show a gap of 6. BUN of 13 creatinine 0.8. CAT scan shows 2 small stones of 2 and 3 mm. Dilated ureter. Appendix is normal. Read by the radiologist and reviewed by me. Liver enzymes are normal. test is negative. Urinalysis shows 250 occult blood and 10-25 red cells. No white cells. No nitrates or bacteria. No infection. Labs: Laboratory Results - last 24 hr 11/30/23 11/30/23 09:20 10:38 WBC 10.3 RBC 4.23 Hgb 12.6 Hct 38.4 MCV 90.8 MCH 29.8 MCHC 32.8 RDW Std Deviation 47.2 H RDW Coeff of Roger 14.3 Plt Count 457 H MPV 10.1 Immature Gran % (Auto) 0.600 Neut % (Auto) 73.9 H Lymph % (Auto) 18.9 L [place] % (Auto) 4.9 Eos % (Auto) 1.1 Baso % (Auto) 0.6 Absolute Neuts (auto) 7.6 Absolute Lymphs (auto) 1.95 Nucleated RBC % 0 Sodium 138 Potassium 3.8 Chloride 108 H Carbon Dioxide 24.0 Anion Gap 6 BUN 13 Creatinine 0.80 Estim Creat Clear Calc 105.21 Est GFR (MDRD) Af Amer 100 Est GFR (MDRD) Non-Af 83 BUN/Creatinine Ratio 16.1 Glucose 138 H Calcium 9.2 Total Bilirubin 0.40 AST 13 L ALT 27 Alkaline Phosphatase 59 Total Protein 7.8 Albumin 3.9 Globulin 3.9 Albumin/Globulin Ratio 1.0 Serum , Qual NEGATIVE Urine Color Yellow Urine Clarity Clear Urine pH 7.0 Ur Specific [place] 1.010 Urine Protein 15 H Urine Glucose (UA) Normal Urine Ketones Negative Urine Occult Blood 250 H Urine Nitrite Negative Urine Bilirubin Negative Urine Urobilinogen Normal Ur Leukocyte Esterase Negative Urine RBC 10-25 SEEN Urine WBC 0 SEEN Ur Squamous Epith Cells 0-5 SEEN Urine Bacteria 0 SEEN Urine Mucus 0 SEEN Radiography Diagnostic Testing: Clinical Impression(s) from Imaging Studies Abdomen/Pelvis CT 11/30/23 09:14 IMPRESSION: Right-sided hydronephrosis and hydroureter with perinephric and periureteral inflammatory stranding. Findings due to 2 separate small stones in the distal right ureter measuring 2 and 3 mm. 2 low-density hemangiomas in the right lobe of the liver larger measures 4 cm, smaller 1 cm Mildly enlarged uterus suggesting underlying fibroids Normal appendix visualized Electronically Signed: Jesus Alberto Dominguez MD at 10:39 EST , Discharge Plan Triage Chief Complaint: Abd Pain ED Provider: Will Fox Dx/Rx/DC Orders Clinical Impression: Right sided abdominal pain, Kidney stone on right side Instructions: ED Kidney Stone with Pain Prescriptions: New oxycodone-acetaminophen [Percocet] 5-325 mg tablet 1 tab PO Q4H PRN (Reason: pain) 3 Days Qty: 12 0RF ondansetron 4 mg tablet,disintegrating 4 mg PO Q6H PRN (Reason: nausea and vomiting) Qty: 7 0RF No Action amoxicillin-pot clavulanate 875-125 mg tablet 1 tab PO BID Qty: 20 0RF Primary Care Provider: Lesa Us Referrals: Joesph Davenport MD [Med Staff - Active Staff] - Lesa Us, ANTHROPOLOGY DEPARTMENT CHAIR-C [Primary Care Provider] - 3-5 Days if not improving Activity Restrictions/Additional Instructions: Plenty of fluids to help pass the stone. Motrin for pain. Percocet for more severe pain. Zofran as needed for nausea. You have 2 small stones and should pass or 2 and 3 mm. They typically do not get stuck to about 8 mm. Strain your urine for the stones. Follow-up with yourprimary care provider as needed. Zofran as needed for nausea. Do not drink or drive while using the Percocet. If you are using the Percocet has Tylenol in it do not use additional Tylenol. Disposition Disposition: Home, Self Care What to do if you have Problems For any increased pain, shortness of breath, bleeding, nausea or vomiting, chestpain, or any unexpected problems, contact your Primary Care Provider. Call [facility] ([phone]) or report to the closest Emergency Room. Call 911 if necessary. 11/30/23 1059 <Electronically signed by Will Fox MD> Cosigner Signature (if applicable): CC: ANTHROPOLOGY DEPARTMENT CHAIR-C Lesa Us ~ Signed [facility] Work Phone: Evaluation note* Diagnosis Unintended weight gain- Primary Abnormal weight gain Encounter for gynecological examination (general) (routine) without abnormal findings Screening for cervical cancer Screening for malignant neoplasm of the cervix Encounter for screening for human papillomavirus (HPV) Special screening examination for human papillomavirus (HPV) Encounter for screening mammogram for breast cancer Elevated testosterone level in female Unspecified endocrine disorder Vaginal dryness Other specified symptom associated with female genital organs documented in this encounter [facility]* Diagnosis Elevated testosterone level in female- Primary Unspecified endocrine disorder Unintended weight gain Abnormal weight gain Hirsutism Vitamin D deficiency Unspecified vitamin D deficiency BMI 39.0-39.9,adult Body Mass Index 39.0-39.9, adult [facility] noteNo assessment information availableWUniversity Hospitals [facility] Work Phone: Evaluation note* Diagnosis Encounter for screening mammogram for breast cancer documented in this encounter [facility]BitLit[facility]* Diagnosis Onset Date Resolution Status Influenza A acute [facility] Work Phone: Evaluation note* Diagnosis Encounter for gynecological examination (general) (routine) without abnormal findings- Primary Encounter for screening mammogram for breast cancer Class 2 obesity with body mass index (BMI) of 38.0 to 38.9 in adult, unspecified obesity type, unspecified whether serious comorbidity present documented in this encounter [facility] CenterOdysiialuation note* Diagnosis Encounter for gynecological examination (general) (routine) without abnormal findings Encounter for screening mammogram for breast cancer documented in this encounter [facility] note* Diagnosis Sensorineural hearing loss (SNHL) of right ear with unrestricted hearing of left ear- Primary documented in this encounter [facility]* Diagnosis Sensorineural hearing loss (SNHL) 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- Primary documented in this encounter [facility]* Diagnosis Disorders of other specified cranial nerves documented in this encounter [facility] Work Phone: Evaluation note* Diagnosis Encounter for gynecological examination (general) (routine) with abnormal findings- Primary Encounter for screening mammogram for breast cancer Dense breast tissue documented in this encounter [facility] note* Diagnosis Encounter for gynecological examination (general) (routine) with abnormal findings Encounter for screening mammogram for breast cancer Dense breast tissue documented in this encounter [facility]* Diagnosis Dense breast tissue- Primary documented in this encounter [facility] Discharge instructions Additional Instructions Plenty of fluids to help pass the stone. Motrin for pain. Percocet for more severe pain. Zofran as needed for nausea. You have 2 small stones and should pass or 2 and 3 mm. They typically do not get stuck to about 8 mm. Strain your urine for the stones. Follow-up with your primary care provider as needed. Zofran as needed for nausea. Do not drink or drive while using the Percocet. If you are using the Percocet has Tylenol in it do not use additional Tylenol.[facility] Work Phone: Reason for referral (narrative)* Diagnostic Procedure Only (Routine) - Closed Specialty Diagnoses / Procedures Referred By Mary Alice sun Referred To Contact [facility] Diagnoses Encounter for screening mammogram for breast cancer Procedures ROBINA SCREENING W LALITHA SCREENING DIGITAL BREAST TOMOSYNTHESIS BI SCREENING MAMMOGRAPHY BI 2-VIEW BREAST INC Eusebia Balderrama APRN.CNM [address] [place] [place] [address] [facility] [address] [place] [address] Referral ID Status Reason Start Date Expiration Date V isits Requested Visits Authorized [id number] Closed Auto-Generate d Referral 04/04/2022 05/04/2023 1 1 [facility] for referral (narrative)* Diagnostic Procedure Only [...] Eusebia Balderrama APRN.CNM [address] [place] [place] [address] [facility] [address] [place] [address] Referral ID Status Reason Start Date Expiration Date Visits Requested Visits Authorized [id number] Authorized Auto-Generat ed Referral 11/02/2023 12/01/2024 1 1 [facility] for referral (narrative)* Diagnostic Procedure Only (Routine) - Closed Specialty Diagnoses / Procedures Referred By Contac t Referred To Contact [facility] Diagnoses Encounter for gynecological examination (general) (routine) without abnormal findings Encounter for screening mammogram for breast cancer Procedures ROBINA SCREENING W LALITHA SCREENING DIGITAL BREAST TOMOSYNTHESIS BI SCREENING MAMMOGRAPHY BI 2-VIEW BREAST INC Eusebia Balderrama APRN.CNM [address] [place] [address] [facility] [address] [place] [address] Referral ID Status Reason Start Date Expiration Date V isits Requested Visits Authorized [id number] Closed Auto-Generate d Referral 11/02/2023 12/01/2024 1 1 [facility] for referral (narrative)No reason for referral information availableWUniversity Hospitals [facility] Work Phone: Reason for visit Narrative* Diagnostic Procedure Only (Routine) - Closed Specialty Diagnoses / Procedures Referred By Mary Alice sun Referred To Contact [facility] Diagnoses Encounter for screening mammogram for breast cancer Procedures ROBINA SCREENING W LALITHA SCREENING DIGITAL BREAST TOMOSYNTHESIS BI SCREENING MAMMOGRAPHY BI 2-VIEW BREAST INC Eusebia Balderrama APRN.CNM [address] [place] [address] [facility] [address] [place] [address] Referral ID Status Reason Start Date Expiration Date V isits Requested Visits Authorized [id number] Closed Auto-Generate d Referral 04/04/2022 05/04/2023 1 1 [facility] for visit Narrative* Diagnostic Procedure Only (Routine) - Closed Specialty Diagnoses / Procedures Referred By Contac t Referred To Contact [facility] Diagnoses Encounter for gynecological examination (general) (routine) without abnormal findings Encounter for screening mammogram for breast cancer Procedures ROBINA SCREENING W LALITHA SCREENING DIGITAL BREAST TOMOSYNTHESIS BI SCREENING MAMMOGRAPHY BI 2-VIEW BREAST INC ANDRADE Foster KIKA Laws.[facility] [address] [place] [address] [facility] [address] [place] [address] Referral ID Status Reason Start Date Expiration Date V isits Requested Visits Authorized [id number] Closed Auto-Generate d Referral 11/02/2023 12/01/2024 1 1 [facility] Center[facility] Narrative* Diagnostic Procedure Only (Routine) - Closed Specialty Diagnoses / Procedures Referred By Mary Alice t Referred To Contact [facility] Diagnoses Encounter for gynecological examination (general) (routine) with abnormal findings Encounter for screening mammogram for breast cancer Dense breast tissue Procedures ROBINA SCREENING W LALITHA SCREENING DIGITAL BREAST TOMOSYNTHESIS BI SCREENING MAMMOGRAPHY BI 2-VIEW BREAST INC ANDRADE SuzanEusebia dey APRN.[facility] [address] [address] Phone: tel: fax: [facility] [address] [place] [address] Referral ID Status Reason Start Date Expiration Date V isits Requested Visits Authorized [id number] Closed Auto-Generate d Referral 12/18/2024 09/30/2025 1 1 [facility] Family History No Family History Records FoundUnknown Family Member Name Dates Details Breast Cancer Comments:Maternal Grandmothe r. Paternal Grandmother. Status:Active Heart Disease Comments:Maternal Grandfathe r. Status:Active Hypertension Comments:Father. Status:Active Lupus Comments:Mother. Status:Active Polymyalgia Rheumatica Comments:Maternal Grandmothe r. Maternal great grandpa Status:Active Thyroid problems Comments:Maternal Grandmothe r. Maternal Uncle. Status:Active Relationship Condition Age at Onset Recorded Date/T kristie mother Systemic lupus erythematosus Unknown uncle Disorder of thyroid Unknown father Hypertension Unknown Instructions Name Dates Details BMI 33.0-33.9,adult : [...] Referral Specialty Diagnoses / Procedures Referred By Contac t Referred To Contact Endocrinology Diagnoses Unintended weight gain Elevated testosterone level in female Procedures CONSULT TO ENDOCRINOLOGY OFFICE/OUTPATIENT [facility] 60-74 MINUTES Eusebia Foster APRN.CN [address] [place] [address] Referral ID Status Reason Start Date Expiration Date Visits Requested Visits Authorized [id number] Pending Review PCP Requested Referral 04/04/2022 04/04/2023 1 1 Specialty Diagnoses / Procedures Referred By Contac t Referred To Contact [facility] Diagnoses Encounter for screening mammogram for breast cancer Procedures ROBINA SCREENING W LALITHA SCREENING DIGITAL BREAST TOMOSYNTHESIS BI SCREENING MAMMOGRAPHY BI 2-VIEW BREAST INC CAD Eusebia Foster APRN.[facility] [address] [place] [address] [facility] [address] [place] [address] Referral ID Status Reason Start Date Expiration Date Visits Requested Visits Authorized [id number] Pending Review Auto-Generat ed Referral 04/04/2022 05/04/2023 1 1 Specialty Diagnoses / Procedures Referred By Contac t Referred To Contact Procedures HEARING TEST/AUDIOGRAM COMPRE AUDIOMETRY THRESHOLD EVAL SP Meron Bucio, AUD [address] [place] [address] [facility] [address] [place] [address] Referral ID Status Reason Start Date Expiration Date Visits Requested Visits Authorized [id number] Pending Review Auto-Generat ed Referral 02/28/2024 02/28/2025 1 1 Specialty Diagnoses / Procedures Referred By Contac t Referred To Contact Diagnoses Sensorineural hearing loss (SNHL) of left ear with restricted hearing of right ear Procedures HEARING AID LILIAN-BINAURAL HEARING AID LILIAN-BINAURAL Rivera Salcido PA-C [address] [place] [address] [facility] [address] [address] Referral ID Status Reason Start Date Expiration Date Visits Requested Visits Authorized [id number] New Request Auto-Generat ed Referral 04/15/2024 04/15/2025 1 1 Specialty Diagnoses / Procedures Referred By Contac t Referred To Contact Radiology Diagnoses Disorders of other specified cranial nerves Procedures MR brain w and wo IV contrast Juanito Victor MD [address] [place] [address] Referral ID Status Reason Start Date Expiration Date Visits Requested Visits Authorized [id number] Authorized Perform Procedure 03/27/2024 03/27/2025 1 1 Chief Complaint and Reason for Visit Chief Complaint PAIN- COPY PCP Chief Complaint PAIN- COPY PCP CONCERN FOR FLU PAIN- COPY PCP Reason for Visit Influenza A Chief Complaint CONCERN FOR FLU PAIN- COPY PCP Reason for Visit Influenza A Chief Complaint CONCERN FOR FLU PAIN- COPY PCP abd Reason for Visit Influenza A Chief Complaint Admit Date S/O- PAIN- COPY PCP January 02, 2025 7:47 am Chief Complaint Admit Date S/O- PAIN- COPY PCP January 02, 2025 7:47 am FASTING January 12, 2025 8:0 2am Chief Complaint Admit Date S/O- PAIN- COPY PCP January 02, 2025 7:47 am FASTING January 12, 2025 8:0 2am S/O- PAIN- COPY PCP March 27, 2025 9:12 am Advance Directives No Advanced Directives Records Found Advance Directive Response Recorded Date/ Time Living Will No November 30, 2023 9:29am Power of Polarity Tester No November 29 9:29am Summary Purpose Additional Source Comments Source Comments (unrecognize d section and content) In the event this informatio n is protected by the Federal Confidentiality of Alcohol and Drug Abuse Patient Records regulations: The Federal rules restrict any use of the information to criminally investigate or prosecute any alcohol or drug abuse patient.[facility] CenterIn the event this information is protected by the Federal Confidentiality of Alcohol and Drug Abuse Patient Records regulations: The Federal rules restrict any use of the information to criminally investigate or prosecute any alcohol or drug abuse patient.[facility] CenterIn the event this information is protected by the Federal Confidentiality of Alcohol and Drug Abuse Patient Records regulations: The Federal rules restrict any use of the information to criminally investigate or prosecute any alcohol or drug abuse patient.[facility] CenterIn the event this information is protected by the Federal Confidentiality of Alcohol and Drug Abuse Patient Records regulations: The Federal rules restrict any use of the information to criminally investigate or prosecute any alcohol or drug abuse patient.[facility] CenterIn the event this information is protected by the Federal Confidentiality of Alcohol and Drug Abuse Patient Records regulations: The Federal rules restrict any use of the information to criminally investigate or prosecute any alcohol or drug abuse patient.[facility] CenterIn the event this information is protected by the Federal Confidentiality of Alcohol and Drug Abuse Patient Records regulations: The Federal rules restrict any use of the information to criminally investigate or prosecute any alcohol or drug abuse patient.[facility] CenterIn the event this information is protected by the Federal Confidentiality of Alcohol and Drug Abuse Patient Records regulations: The Federal rules restrict any use of the information to criminally investigate or prosecute any alcohol or drug abuse patient.[facility] CenterIn the event this information is protected by the Federal Confidentiality of Alcohol and Drug Abuse Patient Records regulations: The Federal rules restrict any use of the information to criminally investigate or prosecute any alcohol or drug abuse patient.[facility] CenterIn the event this information is protected by the Federal Confidentiality of Alcohol and Drug Abuse Patient Records regulations: The Federal rules restrict any use of the information to criminally investigate or prosecute any alcohol or drug abuse patient.[facility] CenterIn the event this information is protected by the Federal Confidentiality of Alcohol and Drug Abuse Patient Records regulations: The Federal rules restrict any use of the information to criminally investigate or prosecute any alcohol or drug abuse patient.[facility] CenterIn the event this information is protected by the Federal Confidentiality of Alcohol and Drug Abuse Patient Records regulations: The Federal rules restrict any use of the information to criminally investigate or prosecute any alcohol or drug abuse patient.[facility] CenterIn the event this information is protected by the Federal Confidentiality of Alcohol and Drug Abuse Patient Records regulations: The Federal rules restrict any use of the information to criminally investigate or prosecute any alcohol or drug abuse patient.[facility] Reason for Visit (unrecogniz ed section and content) Reason Comments Well Woman Reason Comments Overweight New Patient Specialty Diagnoses / Procedures Referred By Contac t Referred To Contact Endocrinology Diagnoses Unintended weight gain Elevated testosterone level in female Procedures CONSULT TO ENDOCRINOLOGY OFFICE/OUTPATIENT NEW HIGH MDM 60-74 MINUTES Eusebia Foster APRN.[facility] [address] [place] [address] Referral ID Status Reason Start Date Expiration Date Visits Requested Visits Authorized [id number] Pending Review PCP Requested Referral 04/04/2022 04/04/2023 1 1 Reason Comments Results Reason Comments Yearly Exam Reason Comments Hearing Test Reason Comments Consult Specialty Diagnoses / Procedures Referred By Contac t Referred To Contact Radiology Diagnoses Disorders of other specified cranial nerves Procedures MR brain w and wo IV contrast Juanito Victor MD [address] [facility] [address] [place] [address] Referral ID Status Reason Start Date Expiration Date Visits Requested Visits Authorized [id number] Authorized Perform Procedure 03/27/2024 03/27/2025 1 1 Reason Comments Well Woman Care Teams (unrecognized sec tion and content) Cover Cutter Relationship Specialty Start Date End Date Ariana Ceballos DO PCP - General Internal Medicine 09/01/15 Cover Cutter Relationship Specialty Start Date End Date Ariana Ceballos DO PCP - General Internal Medicine 09/01/15 Cover Cutter Relationship Specialty Start Date End Date Ariana Ceballos DO (Fax) PCP - General Internal Medicine 09/01/15 Team Status: Active Member Role Status Dates Dr. Ya Santillan MD Family Provider Active Lesa Us , ANTHROPOLOGY DEPARTMENT CHAIR-C Primary Care Provider Active Team Status: Inactive Member Role Status Dates Lesa Us , ANTHROPOLOGY DEPARTMENT CHAIR-C Primary Care Provide r, Attending Provider, Referring Provider Active Team Status: Inactive Member Role Status Dates Lesa Us NP-C Primary Care Provider Active Dr. Wanda Burrows MD Attending Provider, Referring Provider Active Cover Cutter Relationship Specialty Start Date End Date Ariana Ceballos DO (Fax) PCP - General Internal Medicine 09/01/15 Team Status: Inactive Member Role Status Dates Lesa Us ANTHROPOLOGY DEPARTMENT CHAIR-C Primary Care Provider, Referring P ben Active Brenda Callahan ANTHROPOLOGY DEPARTMENT CHAIR, ANTHROPOLOGY DEPARTMENT CHAIR-C Attending Provider Active Cover Cutter Relationship Specialty Start Date End Date Ariana Ceballos DO (Fax) PCP - General Internal Medicine 09/01/15 Team Status: Inactive Member Role Status Dates Lesa Us NP-C Primary Care Provider Active Dr. Will Fox MD Emergency Provider Active Cover Cutter Relationship Specialty Start Date End Date Ariana Ceballos DO (Fax) PCP - General Internal Medicine 09/01/15 Cover Cutter Relationship Specialty Start Date End Date Ariana Ceballos DO PCP - General Internal Medicine 09/01/15 Cover Cutter Relationship Specialty Start Date End Date Ariana Ceballos DO PCP - General Internal Medicine 09/01/15 Cover Cutter Relationship Specialty Start Date End Date Ariana Ceballos DO PCP - General Internal Medicine 09/01/15 Cover Cutter Relationship Specialty Start Date End Date Adrián Mullen DO [address] [place] [address] PCP - [facility] PCP 08/31/23 Ya Santillan MD [address] [place] [address] PCP - General Family Medicine 03/31/24 Cover Cutter Relationship Specialty Start Date End Date Ariana Ceballos DO PCP - General Internal Medicine 09/01/15 Team Status: Active Member Role Status Dates Dr. Ya Santillan MD Family Provider Active Dr. Ya Santillan MD Primary Care Provider Active Team Status: Inactive Member Role Status Dates Dr. Ya Santillan MD Primary Care Provider Active Start: November 08, 2024 End: November 08, 2024 Dr. Wanda Burrows MD Attending Provider Active Start: November 08, 2024 End: November 08, 2024 Dr. Wanda Burrows MD Referring Provider Active Start: November 08, 2024 End: November 08, 2024 Team Status: Inactive Member Role Status Dates Dr. Ya Santillan MD Primary Care Provider Active Start: January 02, 2025 End: January 02, 2025 Dr. Wanda Burrows MD Attending Provider Active Start: January 02, 2025 End: January 02, 2025 Dr. Wanda Burrows MD Referring Provider Active Start: January 02, 2025 End: January 02, 2025 Team Status: Inactive Member Role Status Dates Dr. Ya Santillan MD Primary Care Provider Active Start: January 12, 2025 End: January 12, 2025 Dr. Ya Santillan MD Attending Provider Active Start: January 12, 2025 End: January 12, 2025 Dr. Ya Santillan MD Referring Provider Active Start: January 12, 2025 End: January 12, 2025 Team Status: Active Member Role/Relationship Status Dates Dr. Ya Santillan MD Family Provider Active Dr. Ya Santillan MD Primary Care Provider Active Team Status: Inactive Member Role/Relationship Status Dates Dr. Ya Santillan MD Primary Care Provider Active Start: January 02, 2025 End: January 02, 2025 Dr. Wanda Burrows MD Attending Provider Active Start: January 02, 2025 End: January 02, 2025 Dr. Wanda Burrows MD Referring Provider Active Start: January 02, 2025 End: January 02, 2025 Team Status: Inactive Member Role/Relationship Status Dates Dr. Ya Santillan MD Primary Care Provider Active Start: January 12, 2025 End: January 12, 2025 Dr. Ya Santillan MD Attending Provider Active Start: January 12, 2025 End: January 12, 2025 Dr. Ya Santillan MD Referring Provider Active Start: January 12, 2025 End: January 12, 2025 Team Status: Inactive Member Role/Relationship Status Dates Dr. Ya Santillan MD Primary Care Provider Active Start: March 27, 2025 End: March 27, 2025 Dr. Wanda Burrows MD Attending Provider Active Start: March 27, 2025 End: March 27, 2025 Dr. Wanda Burrows MD Referring Provider Active Start: March 27, 2025 End: March 27, 2025 Goals (unrecognized section and content) Goals may be documented in a n alternate sectionGoals may be documented in an alternate sectionGoals may be documented in an alternate sectionGoals may be documented in an alternate sectionGoals may be documented in an alternate sectionGoals may be documented in an alternate sectionGoals may be documented in an alternate sectionGoals may be documented in an alternate sectionGoals may be documented in an alternate section INFORMATION SOURCE (unrecogn ized section and content) DATE CREATED AUTHOR 04/22/2024 [facility] DATE CREATED AUTHOR AUTHOR'S ORGANIZ ATION 12/20/2024 [facility] DATE CREATED AUTHOR AUTHOR'S ORGANIZ ATION 04/04/2025 [facility] FOR RECORDS PERTAINING TO PATIENTS WHO ARE [...] BE BASED ON THE PRIMARY CLINICAL RECORDS. [facility]. provides no warranty or guarantee of the accuracy or completeness of information in this document.
[2025-06-20 10:28] LABS: Hematocrit 39.3 % (37-47); Hemoglobin 12.6 g/dL (12.0-15.0); Immature Granulocytes Count 0.020 X10^3/uL (0.0-0.0); Mean Corp Hgb Conc 32.1 g/dL (32-36); Mean Corpuscular Volume 89.5 fL (81-99); Mean Platelet Vol. 10.6 fl (6.2-12.0); NRBC Flagged by Analyzer 0 % (0-5); Platelet Count 410 K/mm3 (150-450); RBC Distribution Width CV 13.0 % (11.6-14.6); RBC Distribution Width SD 42.5 fl (35.1-43.9); Red Blood Count 4.39 M/mm3 (4.2-5.4); White Blood Count 7.7 K/mm3 (4.4-11.0)
[2025-06-20 11:26] LABS: AST(SGOT) 17 U/L (<=31); Alanine Aminotransfer ALT/SGPT 12 U/L (<=34); Albumin, Serum 4.4 g/dL (3.5-5.0); Alkaline Phosphatase 58 U/L (35-104); Anion Gap 11 (5-15); BUN 14 mg/dL (4-19); BUN/Creat Ratio 20.6 RATIO (10-20); Calcium,Total 9.2 mg/dL (7.6-11.0); Carbon Dioxide 23.1 mmol/L (21.0-32.0); Chloride 104 mmol/L (98-108); Globulin 3.2 g/dL (2.2-4.2); Glucose 78 mg/dL (70-99); Potassium 4.7 mmol/L (3.3-5.1)
== END | disposition home or self-care (01) ==
LOC: LAB 09:28
PROVIDERS: PCP Family Medicine; Referring Provider Internal Medicine Rheumatology; Visit Provider Internal Medicine Rheumatology
DX: L40.59 Other psoriatic arthropathy (principal); Z79.899 Other long term (current) drug therapy
CPT/HCPCS: 36415; 80053; 85025

== ENCOUNTER → 2025-09-14 | Outpatient (CLI) | payer OTHER, SELFPAY ==
[2025-09-14 10:49] LABS: Hematocrit 39.9 % (37-47); Hemoglobin 12.6 g/dL (12.0-15.0); Immature Granulocytes Count 0.020 X10^3/uL (0.0-0.0); Mean Corp Hgb Conc 31.6 g/dL (32-36); Mean Corpuscular Volume 90.5 fL (81-99); Mean Platelet Vol. 11.0 fl (6.2-12.0); NRBC Flagged by Analyzer 0 % (0-5); Platelet Count 385 K/mm3 (150-450); RBC Distribution Width CV 13.6 % (11.6-14.6); RBC Distribution Width SD 45.3 fl (35.1-43.9); Red Blood Count 4.41 M/mm3 (4.2-5.4); White Blood Count 8.7 K/mm3 (4.4-11.0)
[2025-09-14 11:16] LABS: AST(SGOT) 15 U/L (<=31); Alanine Aminotransfer ALT/SGPT 12 U/L (<=34); Albumin, Serum 4.3 g/dL (3.5-5.0); Alkaline Phosphatase 59 U/L (35-104); Anion Gap 9 (5-15); BUN 15 mg/dL (4-19); BUN/Creat Ratio 18.3 RATIO (10-20); Calcium,Total 9.1 mg/dL (7.6-11.0); Carbon Dioxide 23.4 mmol/L (21.0-32.0); Chloride 103 mmol/L (98-108); Globulin 3.2 g/dL (2.2-4.2); Glucose 84 mg/dL (70-99); Potassium 4.6 mmol/L (3.3-5.1)
== END | disposition home or self-care (01) ==
LOC: MTLAB 08:03
PROVIDERS: PCP Family Medicine; Referring Provider Internal Medicine Rheumatology; Visit Provider Internal Medicine Rheumatology
DX: L40.59 Other psoriatic arthropathy (principal); Z79.899 Other long term (current) drug therapy; L40.8 Other psoriasis
CPT/HCPCS: 36415; 80053; 85025